=== PATIENT | male | born 2000 | race Caucasian/White ===

== ENCOUNTER 2018-12-08 06:45 | Emergency (ER) | payer OTHER, SELFPAY ==
[2018-12-08 06:51] VITALS: BP 154/81; PULSE 80; RESP 16; TEMP 37.4; O2SAT 98
--- NOTE | 2018-12-08 06:53 | W.ED.GENAD ---
Discharge Plan Disposition Patient Disposition: HOME Condition: Stable Discharge Details Chief Complaint: Urinary Clinical Impression: Epididymitis, left Primary Care Provider: Estuardo Graham ED Provider: Ned Younger Home Meds and New Rx's Prescriptions: New levofloxacin 500 mg tablet 500 mg PO DAILY Qty: 10 RF: 0 ketorolac 10 mg tablet 10 mg PO Q6H PRN (Reason: pain) 5 Days Qty: 30 RF: 0 No Action diphenhydramine-acetaminophen [Tylenol PM Extra Strength] 25-500 mg tablet 1 tab PO Q6H PRNRF: 0 doxycycline monohydrate 100 mg tablet 100 mg PO BID Qty: 20 RF: 0 Discharge Instructions Instructions: Epididymitis (ED) Additional Instructions: follow up with Dr. Castañeda's office, they should reach you for an appointment. If you don't hear from them later today call their office if you have severe worsening of pain or persistent vomit return to the emergency department for reevaluation Medical Decision Making 18 yo male who denies any recent trauma or fevers, is not sexually active and hasn't been for many months per pt, comes in with left testicle pain for about a week that gradually worsened and has had some dysuria. Denies any scrotal swelling. on exam exam he has no swelling of the scrotum, no pain in the right testicle, has pain over the left epidymis and has intact cremasteric reflex. Suspect epididymitis again. Given he denies std's do not feel std coverage indicated but will obtian gc/chlamdyia testing and UA, and likely tx for enteric organsisms with levoflxoacin. He has intact cremastieric reflex, no testicle pain or swelling and pain did not start acutely so doubt torsion of the testicle and do not feel u/s or emergent urology consult indicated Differential Diagnosis torsion testicular appendage, epidiymitis HPI General Mode of arrival: ambulatory. Date/Time Provider Initiated Documentation: 12/08/18 06:46. Limitations to Documentation: no limitations. Information obtained by: patient. History of Present Illness 18 year old M presents to the emergency department with the chief complaint of left testicle pain, described as moderate, Quality is described as aching, and is localized to the genitals and left. Patient reports no radiation. Patient started experiencing this week(s) (1) and it has been constant. other things that improve symptom(s), (elevation) No exacerbating factors reported . Patient notes no other symptoms.. Patient did receive the following treatments prior to arrival, NSAID Related Data Home Medications Medication Instructions Recorded Confirmed diphenhydramine 25 1 tab PO Q6H PRN 08/06/18 08/06/18 mg-acetaminophen 500 mg tablet doxycycline monohydrate 100 mg 100 mg PO BID #20 tab 08/06/18 08/06/18 tablet ketorolac 10 mg PO Q6H PRN 5 Days #30 tab 12/08/18 levofloxacin 500 mg PO DAILY #10 tab 12/08/18 Previous Rx's Medication Instructions Recorded doxycycline monohydrate 100 mg 100 mg PO BID #20 tab 08/06/18 tablet ketorolac 10 mg PO Q6H PRN 5 Days #30 tab 12/08/18 levofloxacin 500 mg PO DAILY #10 tab 12/08/18 Allergies Allergy/AdvReac Type Severity Reaction Status Date / Time No Known Allergies Allergy Unverified 03/18/18 13:30 Review of Systems Review of Systems All systems reviewed & are unremarkable except as noted in HPI and below Constitutional Denies chills, Denies fever(s) and Denies weakness Cardiovascular Denies chest pain and Denies dyspnea Respiratory Denies cough and Denies dyspnea Gastrointestinal Denies abdominal pain, Denies nausea and Denies vomiting Integumentary/Breasts Denies rash Neurologic Denies weakness [facility] Social History Smoking/Tobacco Use Status: Current every day Alcohol Intake: current Drug use: Occasionally Do you feel safe at home: Yes Do you feel safe in your relationship?: Yes Exam Const General: no acute distress Orientation: alert HENMT Head: normal to inspection Ears: external ears normal General nose exam: external nose normal Mouth: moist mucous membranes Eyes General: appearance normal, both eyes and all related structures Neck Neck: normal visual inspection Resp Effort & Inspection: normal respiratory effort and able to speak in complete sentences Cardio Rate: regular rate General: No CVA tenderness Penis: normal penis Meatus: meatus normal Scrotum: scrotum normal and cremasteric reflex present Testes: normal and epididymal tenderness Skin General skin exam: no rashes or lesions noted Neuro General: alert and oriented x3 Extrem General: normal to inspection Psych Mental Status: mental status grossly normal
--- NOTE | 2018-12-08 06:58 | ED.GENADUL_ITS ---
Discharge Plan Disposition Patient Disposition: HOME Condition: Stable Discharge Details Chief Complaint: Urinary Clinical Impression: Epididymitis, left Primary Care Provider: Estuardo Graham ED Provider: Ned Younger Home Meds and New Rx's Prescriptions: New levofloxacin 500 mg tablet 500 mg PO DAILY Qty: 10 RF: 0 ketorolac 10 mg tablet 10 mg PO Q6H PRN (Reason: pain) 5 Days Qty: 30 RF: 0 No Action diphenhydramine-acetaminophen [Tylenol PM Extra Strength] 25-500 mg tablet 1 tab PO Q6H PRNRF: 0 doxycycline monohydrate 100 mg tablet 100 mg PO BID Qty: 20 RF: 0 Discharge Instructions Instructions: Epididymitis (ED) Additional Instructions: follow up with Dr. Castañeda's office, they should reach you for an appointment. If you don't hear from them later today call their office if you have severe worsening of pain or persistent vomit return to the emergency department for reevaluation Medical Decision Making 18 yo male who denies any recent trauma or fevers, is not sexually active and hasn't been for many months per pt, comes in with left testicle pain for about a week that gradually worsened and has had some dysuria. Denies any scrotal swelling. on exam exam he has no swelling of the scrotum, no pain in the right testicle, has pain over the left epidymis and has intact cremasteric reflex. Suspect epididymitis again. Given he denies std's do not feel std coverage indicated but will obtian gc/chlamdyia testing and UA, and likely tx for enteric organsisms with levoflxoacin. He has intact cremastieric reflex, no testicle pain or swelling and pain did not start acutely so doubt torsion of the testicle and do not feel u/s or emergent urology consult indicated Differential Diagnosis torsion testicular appendage, epidiymitis HPI General Mode of arrival: ambulatory . Date/Time Provider Initiated Documentation: 12/08/18 06:46 . Limitations to Documentation: no limitations . Information obtained by: patient . History of Present Illness 18 year old M presents to the emergency department with the chief complaint of left testicle pain, described as moderate, Quality is described as aching, and is localized to the genitals and left. Patient reports no radiation. Patient started experiencing this week(s) (1) and it has been constant. other things that improve symptom(s), (elevation) No exacerbating factors reported . Eli ent notes no other symptoms.. Patient did receive the following treatments prior to arrival, NSAID Related Data Home Medications Medication Instructions Recorded Confirmed diphenhydramine 25 1 tab PO Q6H PRN 08/06/18 08/06/18 mg-acetaminophen 500 mg tablet doxycycline monohydrate 100 mg 100 mg PO BID #20 tab 08/06/18 08/06/18 tablet ketorolac 10 mg PO Q6H PRN 5 Days #30 tab 12/08/18 levofloxacin 500 mg PO DAILY #10 tab 12/08/18 Previous Rx's Medication Instructions Recorded doxycycline monohydrate 100 mg 100 mg PO BID #20 tab 08/06/18 tablet ketorolac 10 mg PO Q6H PRN 5 Days #30 tab 12/08/18 levofloxacin 500 mg PO DAILY #10 tab 12/08/18 Allergies Allergy/AdvReac Type Severity Reaction Status Date / Time No Known Allergies Allergy Unverified 03/18/18 13:30 Review of Systems Review of Systems All systems reviewed & are unremarkable except as noted in HPI and below Constitutional Denies chills, Denies fever(s) and Denies weakness Cardiovascular Denies chest pain and Denies dyspnea Respiratory Denies cough and Denies dyspnea Gastrointestinal Denies abdominal pain, Denies nausea and Denies vomiting Integumentary/Breasts Denies rash Neurologic Denies weakness [facility] Social History Smoking/Tobacco Use Status: Current every day Alcohol Intake: current Drug use: Occasionally Do you feel safe at home: Yes Do you feel safe in your relationship?: Yes Exam Const General: no acute distress Orientation: alert HENMT Head: normal to inspection Ears: external ears normal General nose exam: external nose normal Mouth: moist mucous membranes Eyes General: appearance normal, both eyes and all related structures Neck Neck: normal visual inspection Resp Effort & Inspection: normal respiratory effort and able to speak in complete sentences Cardio Rate: regular rate General: No CVA tenderness Penis: normal penis Meatus: meatus normal Scrotum: scrotum normal and cremasteric reflex present Testes: normal and epididymal tenderness Skin General skin exam: no rashes or lesions noted Neuro General: alert and oriented x3 Extrem General: normal to inspection Psych Mental Status: mental status grossly normal
[2018-12-08 07:06] VITALS: BP 154/81; PULSE 80; RESP 16; TEMP 37.4; O2SAT 98
[2018-12-08 07:07] LABS: Bilirubin Negative (Negative); Blood Negative (Negative); Clarity Clear; Glucose Negative (Negative); Ketones Negative (Negative); Leukocyte Esterase Negative (Negative); Nitrite Negative (Negative); Specific Gravity 1.025 (1.005-1.025); Urobilinogen 0.2 EU/dL (Up TO 0.2); pH 6.5 (5-8)
--- NOTE | 2018-12-08 09:07 | CMPROGNOTE_ITS ---
Care Management Progress Note 12/08-Dr. Younger requested assistance with an urology f/u this week for epididimitis. Referral faxed to Dr. Castañeda's, [facility] Urology, this am.
--- NOTE | 2018-12-08 09:07 | PDOC.ERCMPRO ---
Care Management Progress Note 12/08-Dr. Younger requested assistance with an urology f/u this week for epididimitis. Referral faxed to Dr. Castañeda's, [facility] Urology, this am.
[2018-12-09 12:45] LABS: Chlamydia Result Negative; GC Result Negative; Specimen Description URINE
== END 2018-12-08 07:10 | disposition home or self-care (01) ==
PROVIDERS: Emergency Provider Emergency Medicine; PCP Family Medicine
DX: N45.1 Epididymitis (principal)
CPT/HCPCS: 87491; 87591; 99283; 81003; 87086

== ENCOUNTER 2019-03-09 00:23 | Outpatient (CLI) | payer OTHER, SELFPAY ==
--- NOTE | 2019-03-09 09:00 | DI.MRI_ITS ---
SYMPTOM/DIAGNOSIS: LT GROIN PAIN, R10.32 LUMBAR SPINE MRI: T 1, T 2 and STIR sagittal, T 1 and T 2 axial and T 1 coronal sequences were performed. There is a mild levoscoliosis versus patient positioning. The marrow signal is normal. The conus medullaris appears intact. There is slight bulging at L 3-4 and L 4-5. No disc herniation is seen at any level. The neural foramen and central canal are well maintained. There are mild facet degenerative changes at L 5-S 1. IMPRESSION: Minimal degenerative changes and minimal scoliosis.
== END 2019-03-09 00:43 ==
PROVIDERS: PCP Family Medicine; Visit Provider Nurse Practitioner Family
DX: R10.32 Left lower quadrant pain (principal); M47.817 Spondylosis without myelopathy or radiculopathy, lumbosacral region; M41.87 Other forms of scoliosis, lumbosacral region
CPT/HCPCS: 72148

== ENCOUNTER 2019-04-23 01:06 | Outpatient (CLI) | payer OTHER, SELFPAY ==
--- NOTE | 2019-04-23 14:30 | DI.US_ITS ---
EXAM: US PAIN CLINIC NEEDLE GUIDANCE CLINICAL HISTORY: LT TESTICULAR PAIN, ULTRASOUND-GUIDED GENITOFEMORAL BLOCK. TECHNIQUE: Ultrasound performed using standard protocol. COMPARISON: SCROTUM US from 12/20/2017 FINDINGS: Ultrasound guidance was utilized for genitofemoral block performed by Dr. Guallpa.
[2019-04-23 14:33] VITALS: BP 137/80; PULSE 83; RESP 16; TEMP 36.8; O2SAT 98
[2019-04-23] MEDS: Bupivacaine 0.5% Pres-Free 10 ML VIAL IJ (15:13)
[2019-04-23] MEDS: methylPREDNISolone ACETATE 40 MG/ML VIAL IJ (15:17)
--- NOTE | 2019-04-23 15:19 | PDOC.PAIN_ITS ---
Pain Clinic Procedure Note Procedure Note Procedure Note: ULTRASOUND GUIDED LEFT GENITOFEMORAL NERVE BLOCK Pre-Procedural Evaluation: LEROY ARIZMENDI has been referred to the [facility] for an Ultrasound Guided left Genitofemeral nerve block injection for a chief compl aint of . Pre-procedure Pain Score: 7/10 Patient was interviewed and the medical record reviewed. There were no medical, pharmacologic, radiographic, or other structural contraindications to preforming an ultrasound guided injection. Risks and expected side effects as well as potential benefits of the procedure were reviewed. The patient consent form was signed and witnessed. Standard time-out procedure was performed. The use of direct ultrasound visualization of the needle (rather than a non- guided injection) was required to increase patient safety by excluding inadvertent intramuscular, intratendinous, or intraneural needle placement and minimizing bleeding by avoiding osteochondral or vascular injury from the needle. Additionally, the increased accuracy of placement may increase clinical effectiveness and will allow higher diagnostic specificity when evaluating effectiveness of this injection. Procedure Description: The patient was placed in the supine position and automated blood pressure cuff and pulse oximeter applied for monitoring during the procedure and recorded in the medical record. Pre-injection ultrasound scanning of the area of interest was performed using linear transducer, identifying relevant anatomy, landmarks, and neurovascular structures allowing for optimal needle path. The site was then prepared in the usual sterile fashion, using thorough Chlorhexadine preparation of the skin and sterile draping. The same ultrasound transducer was then passed into the sterile field using sterile probe cover and sterile ultrasound gel. The injection target was again visualized. 3Skin and subcutaneous tissues were anesthetized with mL of 1% Lidocaine. A /25 guage needle 1.5 inch needle was placed under live ultrasound guidance, using an in-plane approach, to the target area. After visualization of the needle tip at the target area, a mixture of 5 mL 0.5% Bupivacaine} and 1 mL 40 mg/cc Depomedrol, totaling 6 mL of injectate was delivered after negative aspiration for blood. Ultrasound images were captured and stored for documentation purposes. Post-procedure Pain Score: 2/10 Vital signs were stable throughout the procedure and were as recorded in the docflowsheet by the nursing staff. Follow up plans and appointments were discussed with the patient.Post procedure instruction was given as documented in nursing documentation and having met discharge criteria, they were discharged from the [facility]. COMMENTS: He will follow up with Ms. Vasquez
== END 2019-04-23 01:26 ==
PROVIDERS: PCP Family Medicine; Visit Provider Preventive Medicine Occupational Medicine
DX: N50.812 Left testicular pain (principal)
CPT/HCPCS: 64450; 76942; J1030

== ENCOUNTER 2019-07-10 11:37 | Outpatient (REF) | payer OTHER, SELFPAY ==
[2019-07-10 18:24] LABS: Calculated LDL 98 mg/dL; Cholesterol 163 mg/dL (<200); HDL Cholesterol 46 mg/dL (40-60); Triglyceride 99 mg/dL (<150)
[2019-07-10 18:59] LABS: Abs Immature Grans 0.03 k/cumm (0.0-0.09); Absolute Basophil Count 0.04 k/cumm (0.0-0.2); Absolute Eosinophil Count 0.34 k/cumm (0.0-0.7); Absolute Lymphocyte Count 2.11 k/cumm (1.2-3.4); Absolute Monocyte Count 0.88 k/cumm (0.11-0.7); Basophils % 0.5; HCT 46.3 % (40.0-50.0); HGB 15.7 g/dL (13.5-17.5); Immature Grans % 0.4; Lymphocytes % 24.8; Mean Corp. HGB Concentration 33.9 g/dL (32.0-36.0); Mean Corpuscular Hemoglobin 30.8 pg (27.0-33.0); Mean Corpuscular Volume 90.8 fL (80-95); Mean Platelet Volume 9.7 fL (8.0-11.0); Monocytes % 10.4; Neutrophils % 59.9; Platelet Count 424 x1000/uL (130-400); RBC Distribution Width 12.3 % (11.8-14.1)
[2019-07-10 19:41] LABS: Hemoglobin A1C 4.9 % (4.5-6.2)
== END 2019-07-10 11:57 ==
LOC: NCHCN 11:37
PROVIDERS: PCP Family Medicine; Visit Provider Family Medicine
DX: F39 Unspecified mood [affective] disorder (principal); Z79.899 Other long term (current) drug therapy
CPT/HCPCS: 80061; 83036; 85025

== ENCOUNTER 2019-08-10 19:35 | Outpatient (REF) | payer OTHER, SELFPAY ==
[2019-08-10 18:49] LABS: AST 28 U/L (15-37); Albumin 3.9 g/dL (3.4-5.0); Alkaline Phosphatase 75 U/L (46-116); Bilirubin, Total 0.2 mg/dL (0.2-1.0); Total Protein 6.8 g/dL (6.4-8.2)
[2019-08-10 19:00] LABS: ALT 22 U/L (16-63)
[2019-08-11 15:02] LABS: Bilirubin, Direct 0.05 mg/dL (0.00-0.20)
== END 2019-08-10 19:55 ==
LOC: NCHCN 19:35
PROVIDERS: PCP Family Medicine; Visit Provider Nurse Practitioner Psychiatric/Mental Health
DX: Z51.81 Encounter for therapeutic drug level monitoring (principal)
CPT/HCPCS: 80076

== ENCOUNTER 2019-09-11 07:21 | Outpatient (CLI) | payer OTHER, SELFPAY ==
[2019-09-11 08:01] LABS: Abs Immature Grans 0.05 k/cumm (0.0-0.09); Absolute Basophil Count 0.04 k/cumm (0.0-0.2); Absolute Eosinophil Count 0.39 k/cumm (0.0-0.7); Absolute Lymphocyte Count 3.21 k/cumm (1.2-3.4); Basophils % 0.3; Eosinophils % 2.7; HCT 41.6 % (40.0-50.0); HGB 14.3 g/dL (13.5-17.5); Immature Grans % 0.3 %; Lymphocytes % 22.3; Mean Corp. HGB Concentration 34.4 g/dL (32.0-36.0); Mean Corpuscular Hemoglobin 30.8 pg (27.0-33.0); Mean Corpuscular Volume 89.5 fL (80-95); Mean Platelet Volume 9.2 fL (8.0-11.0); Monocytes % 8.5; Neutrophils % 65.9; Platelet Count 350 x1000/uL (130-400); RBC 4.65 m/cumm (4.50-6.00); RBC Distribution Width 12.6 % (11.8-14.1); White Blood Cell Count 14.41 k/cumm (4.4-10.8)
[2019-09-11 08:08] LABS: Absolute Monocyte Count 1.22 k/cumm (0.11-0.7)
[2019-09-11 08:10] LABS: VALPROIC ACID 35.4 ug/mL (50-100)
== END 2019-09-11 07:41 ==
PROVIDERS: PCP Family Medicine; Visit Provider Nurse Practitioner Psychiatric/Mental Health
DX: Z51.81 Encounter for therapeutic drug level monitoring (principal); Z79.899 Other long term (current) drug therapy
CPT/HCPCS: 36415; 80164; 85025

== ENCOUNTER 2019-10-07 11:14 | Outpatient (REF) | payer OTHER, SELFPAY ==
[2019-10-07 21:26] LABS: Abs Immature Grans 0.05 k/cumm (0.0-0.09); Absolute Eosinophil Count 0.53 k/cumm (0.0-0.7); Absolute Monocyte Count 1.11 k/cumm (0.11-0.7); Absolute Neutrophil Count 8.08 k/cumm (1.2-6.7); Basophils % 0.2; Eosinophils % 4.4; HCT 40.9 % (40.0-50.0); HGB 13.9 g/dL (13.5-17.5); Immature Grans % 0.4 %; Mean Corpuscular Hemoglobin 31.3 pg (27.0-33.0); Mean Corpuscular Volume 92.1 fL (80-95); Mean Platelet Volume 10.4 fL (8.0-11.0); Monocytes % 9.2; Neutrophils % 66.8; Platelet Count 296 x1000/uL (130-400); RBC 4.44 m/cumm (4.50-6.00); RBC Distribution Width 12.9 % (11.8-14.1)
[2019-10-07 21:27] LABS: Absolute Basophil Count 0.02 k/cumm (0.0-0.2)
[2019-10-07 21:42] LABS: TSH (W/Ref FT4) 0.86 uIU/mL (0.36-3.74)
[2019-10-08 05:31] LABS: Vitamin D 25 Total 25.4 ng/ml (30-100)
== END 2019-10-07 11:34 ==
LOC: NCHCN 11:14
PROVIDERS: PCP Family Medicine; Visit Provider Nurse Practitioner Psychiatric/Mental Health
DX: Z51.81 Encounter for therapeutic drug level monitoring (principal)
CPT/HCPCS: 82306; 80164; 84443; 85025

== ENCOUNTER 2019-11-13 09:37 | Outpatient (REF) | payer OTHER, SELFPAY ==
[2019-11-13 17:50] LABS: VALPROIC ACID 40.3 ug/mL (50-100)
[2019-11-13 17:58] LABS: ALT 36 U/L (16-63); AST 26 U/L (15-37); Albumin 4.2 g/dL (3.4-5.0); Alkaline Phosphatase 66 U/L (46-116); Anion Gap 8.3 mmol/L (3-11); BUN 10 mg/dL (7-18); Bilirubin, Total 0.1 mg/dL (0.2-1.0); CO2 27.7 mmol/L (21.0-32.0); CREATININE 0.81 mg/dL (0.70-1.30); Calcium 9.2 mg/dL (8.5-10.1); Chloride 106 mmol/L (98-107); Glucose 102 mg/dL (74-106); Potassium 4.3 mmol/L (3.5-5.1); Sodium 142 mmol/L (136-145); TSH (W/Ref FT4) 0.87 uIU/mL (0.36-3.74); Total Protein 7.1 g/dL (6.4-8.2)
== END 2019-11-13 09:57 ==
LOC: NCHCN 09:37
PROVIDERS: PCP Family Medicine; Visit Provider Nurse Practitioner Psychiatric/Mental Health
DX: Z51.81 Encounter for therapeutic drug level monitoring (principal); F39 Unspecified mood [affective] disorder
CPT/HCPCS: 80053; 80164; 84443

== ENCOUNTER 2019-12-04 15:41 | Outpatient (REF) | payer OTHER, SELFPAY ==
[2019-12-04 16:47] LABS: Lithium 0.56 mmol/L (0.60-1.20)
== END 2019-12-04 16:01 ==
LOC: NCHCN 15:41
PROVIDERS: PCP Family Medicine; Visit Provider Nurse Practitioner Psychiatric/Mental Health
DX: F39 Unspecified mood [affective] disorder (principal); Z51.81 Encounter for therapeutic drug level monitoring
CPT/HCPCS: 80178

== ENCOUNTER 2020-01-25 16:07 | Outpatient (REF) | payer OTHER, SELFPAY ==
[2020-01-25 17:34] LABS: *AMPHETAMINES SCREEN URINE Negative (Negative); *BARBITURATES SCREEN URINE Negative (Negative); *BENZODIAZEPINES SCREEN URINE Negative (Negative); Cannabinoids THC Negative (Negative); Cocaine Screen,Urine Negative (Negative); METHADONE URINE SCREEN Negative (Negative); OPIATES URINE SCREEN Negative (Negative); Tricyclic Antidepressants Negative (Negative)
== END 2020-01-25 16:27 ==
LOC: NCHCN 16:07
PROVIDERS: PCP Family Medicine; Visit Provider Nurse Practitioner Psychiatric/Mental Health
DX: F19.10 Other psychoactive substance abuse, uncomplicated (principal)
CPT/HCPCS: 80307

== ENCOUNTER 2020-03-31 02:28 | Outpatient (CLI) | payer OTHER, SELFPAY ==
--- NOTE | 2020-03-31 | DI.US_ITS ---
EXAM: US PAIN CLINIC NEEDLE GUIDANCE CLINICAL HISTORY: GENITOFEMORAL NEURALGIA,ULTRASOUND GUIDED NERVE BLOCK TECHNIQUE: Ultrasound performed using standard protocol. COMPARISON: US US PAIN CLINIC NEEDLE GUIDANCE from 04/23/2019 FINDINGS: Ultrasound guidance was provided for reported left geniculofemoral nerve block performed by Dr. Guallpa. Please see Dr. Guallpa's procedure note. IMPRESSION: DATA REPOSITORY:
[2020-03-31 13:03] VITALS: BP 128/72; PULSE 98; RESP 16; TEMP 36.8; O2SAT 99
--- NOTE | 2020-03-31 13:39 | PDOC.PAIN_ITS ---
Pain Clinic Procedure Note Procedure Note Procedure Note: ULTRASOUND GUIDED LEFT Genitofemoral nerve block Pre-Procedural Evaluation: LEROY ARIZMENDI has been referred to the [facility] for an Ultrasound Guided [right/left/bilateral] [] injection for a chief complaint of []. Pre-procedure Pain Score: 4/10 DX: Left genitofemoral neuralgia Comment: He received 4-5 month of relief with his last left genitofemoral nerve block on 04/23/2019. Patient was interviewed and the medical record reviewed. There were no medical, pharmacologic, radiographic, or other structural contraindications to preforming an ultrasound guided injection. Risks and expected side effects as well as potential benefits of the procedure were reviewed. The patient consent form was signed and witnessed. Standard time-out procedure was performed. The use of direct ultrasound visualization of the needle (rather than a non- guided injection) was required to increase patient safety by excluding inadvertent intramuscular, intratendinous, or intraneural needle placement and minimizing bleeding by avoiding osteochondral or vascular injury from the needle. Additionally, the increased accuracy of placement may increase clinical effectiveness and will allow higher diagnostic specificity when evaluating effectiveness of this injection. Procedure Description: The patient was placed in the supine position and automated blood pressure cuff and pulse oximeter applied for monitoring during the procedure and recorded in the medical record. Pre-injection ultrasound scanning of the area of interest was performed using a linear transducer, identifying relevant anatomy, landmarks, and neurovascular structures allowing for optimal needle path. The site was then prepared in the usual sterile fashion, using thorough Chlorhexadine preparation of the skin and sterile draping. The same ultrasound transducer was then passed into the sterile field using sterile probe cover and sterile ultrasound gel. The injection target was again visualized. Skin and subcutaneous tissues were anesthetized with 2 mL of 1% Lidocaine. A 20 guage P[place]unk needle was placed under live ultrasound guidance, using an in-plane approach, to the target area. After visualization of the needle tip at the target area, a mixture of 5 mL 0.5% bupivacaine and 1 mL Depomedrol (40 mg/cc), totaling 6 mL of injectate was delivered after negative aspiration for blood. Ultrasound images were captured and stored for documentation purposes. Post-procedure Pain Score:0/10 Vital signs were stable throughout the procedure and were as recorded in the docflowsheet by the nursing staff. Follow up plans and appointments were discussed with the patient.Post procedure instruction was given as documented in nursing documentation and having met discharge criteria, they were discharged from the [facility]. COMMENTS: This procedure can be completed up to 3 times per 12 months if it is found to be helpful
[2020-03-31 13:40] VITALS: PULSE 93; O2SAT 100
[2020-03-31] MEDS: methylPREDNISolone ACETATE 40 MG/ML VIAL IJ (13:40)
[2020-03-31] MEDS: Bupivacaine 0.5% Pres-Free 10 ML VIAL IJ (13:40)
== END 2020-03-31 02:48 ==
PROVIDERS: PCP Family Medicine; Visit Provider Preventive Medicine Occupational Medicine
DX: G57.82 Other specified mononeuropathies of left lower limb (principal)
CPT/HCPCS: 64425; 76942; J1030

== ENCOUNTER 2020-04-28 01:54 | Emergency (ER) | payer OTHER, SELFPAY ==
[2020-04-28 01:58] VITALS: BP 163/97; PULSE 120; RESP 16; TEMP 36.7; O2SAT 99
--- NOTE | 2020-04-28 02:00 | ED.GENADUL_ITS ---
Discharge Plan Disposition Patient Disposition: HOME Condition: Improving Discharge Details Clinical Impression: Anxiety, Tinnitus Primary Care Provider: Estuardo Graham ED Provider: Ignacio Rodriguez Home Meds and New Rx's Prescriptions: No Action No Known Home Meds RF: 0 Discharge Instructions Additional Instructions: Mental health will contact you in the morning at 7 AM. Follow safety plan that you have arranged with her. If issues call her before then. You will need to follow-up with primary care for further evaluation of the ringing in your ears. Mental health is going to try to help facilitate that. It would probably be beneficial to stay with your mother as discussed with mental health. Return to ED at any time that you feel unsafe or [id number]. Referrals: [facility] [Provider Group] Estuardo Graham [Primary Care Provider] - Medical Decision Making Patient presenting with anxiety/panic attack. Acutely feeling overwhelmed without trigger. Had some alcohol and marijuana Saturday which is 3 days ago now. Denies regular use. Did take himself off psychiatric medications and has not seen his behavioral health specialist in over 3 months. At this point we will treat him acutely with p.o. Ativan and reevaluate. 02:50 -Ativan has seemed to help to some degree. He is definitely more calm. Still feels anxious and overwhelmed. Again does not feel that he is truly suicidal but cannot tell me that he feels completely safe. I do not think he is really a threat but will have mental health evaluate, if nothing else to assure close follow-up and develop safety plan. 04:30 - Patient had a lengthy conversation with mental health. Discussed outpatient and inpatient management. Patient does not think he is ready for inpatient. He is not suicidal and has no intent or plan. He just periodically has the thoughts of suicide. He also has continued tenderness for the last couple months which he thinks is feeding into his anxiety. You will need to follow-up with primary care for further evaluation of this. He has no headache and is neurologically intact. His ears have minimal cerumen and he has some scarring to the TMs but otherwise normal. Plan will be for mental health to reach out to him at 7 AM to see how he is doing. He will contact them in the meantime if any issues. He is considering going to spend a few days with his mother to help with the anxiety. We will give a couple of Ativan from here for him to use if he develops worsening anxiety or panic attack. He understands that if he becomes overwhelmed or feels unsafe to return to the emergency department. Medical Records Medical records reviewed: Yes I reviewed the patient's medical records. HPI General Mode of arrival: ambulatory . Date/Time Provider Initiated Documentation: 04/28/20 01:56 . Limitations to Documentation: no limitations . Information obtained by: patient, RN notes reviewed and old records reviewed . HPI Narrative: Patient brought here by his boss for anxiety/panic attack. Patient has had attacks similar to this in the past but has always been able to control them. Tonight he is unable to control. He is unable to stop crying. There is nothing that triggered this event. He has been off medications and has not seen his behavioral health counselor for over 3 months. He does not regularly drink or use drugs but did so on Saturday. He is complaining of palpitations and heart racing. He has had fleeting suicidal thoughts but has no intention of acting on them. He just feels overwhelmed and [id number] at this point. Is not even sure why he is here other than the fact that both him and his boss did not know what else to do. Related Data Home Medications Medication Instructions Recorded Confirmed Unknown [No Known Home Meds] 04/28/20 04/28/20 Allergies Allergy/AdvReac Type Severity Reaction Status Date / Time Environmental (Mild) Allergy Mild Uncoded 04/28/20 02:01 General HUONG: 3 Review of Systems Narrative: As documented in HPI otherwise negative as below. Const: no fever, chills, weakness Resp: no cough, SOB, pleuritic pain CV: no CP, diaphoresis, edema, syncope GI: no abdominal pain, nausea, vomiting, diarrhea Neuro: no headache, numbness, focal weakness, confusion PFSH Medical History Allergic rhinitis Asthma, mild intermittent Genitofemoral neuralgia Mood disorder Surgical History H/O adenoidectomy Social History Smoking/Tobacco Use Status: Current every day Alcohol Intake: current Alcohol Intake frequency: a few times a week Substance use type: marijuana and prescription drug Do you feel safe at home: Yes Do you feel safe in your relationship?: Yes Additional Social history: Lives alone with 2 dogs. Exam Narrative Exam Narrative: Vitals: Afebrile. Tachycardic and hypertensive but crying. Normal O2 saturation. Const: WDWN male anxious and crying.. HEENT: NC/AT. Normal facial exam. Eyes: Normal conjunctiva and sclera. Neck: Supple. Trachea midline. Lungs: Normal respiratory effort. Lungs are clear. Cor: RRR without murmur/gallop. Tachy. Good radial pulses. GI: Soft. NT/ND. No guarding or rebound. Neuro: A+O x 3. Normal speech, mentation, gait. Cranial nerves II - XII grossly intact. No gross motor or sensory deficit. Ext: No C/C/E. Psych: Anxious, crying. Feels out of control. Fleeting suicidal thoughts without intent. No hallucinations.
[2020-04-28] MEDS: LORazepam 1 MG TAB PO (02:19)
--- NOTE | 2020-04-28 04:08 | PDOC.MHCN ---
Date of service: 04/28/20 Time of Service: 04:08 Mental Health Crisis Note Presenting Issue How did you arrive at the ED and why did you come: Client arrived at the ED after suffering from severe anxiety and a panic attack. Precipitating Factors Client reports thoughts of suicide, but reports that he does'nt want to do it and has no plan. Client reports that he doesn't have anything to make him unsafe. Client reports no HI. Client reports a ringing in his ears that gets worse the more he relaxes. Disposition BEHAVIOR: Clients behavior is unremarkable. Client is receptive when speaking with this remote mortgage underwriter. EYE CONTACT: Client makes good eye contact throughout the assessment. MOOD: Client is depressed and tearful AFFECT: Clients affect is flat APPETITE: Client reports issues with his appetite over the past few days. SLEEP(trouble falling/staying asleep: Client reports trouble falling asleep Plan This remote mortgage underwriter consulted with Dr. Rodriguez. It was agreed that client was safe to go home as client reports no suicide plan and does not want inpatient hospitalization. This remote mortgage underwriter and client came up with a plan for safety. This remote mortgage underwriter will contact client at 7am to check in. Client has the ES number and will call if he begins to feel a panic attack coming on. [facility] will follow up and support client in reaching out to his PCP to discuss meds. Signature Clinician's Name/Title: Rosemary Orta [facility] Emergency Clinician
[2020-04-28] MEDS: LORazepam 1 MG TAB 2 MG PO (04:32)
[2020-04-28 04:34] VITALS: BP 130/86; PULSE 90; RESP 16; O2SAT 98
== END 2020-04-28 04:33 | disposition home or self-care (01) ==
PROVIDERS: Emergency Provider Emergency Medicine; PCP Family Medicine
DX: F41.8 Other specified anxiety disorders (principal); R00.2 Palpitations; H93.13 Tinnitus, bilateral; T43.596A Underdosing of other antipsychotics and neuroleptics, initial encounter; Z91.19 Patient's noncompliance with other medical treatment and regimen; Z91.128 Patient's intentional underdosing of medication regimen for other reason
CPT/HCPCS: 99283

== ENCOUNTER 2020-05-03 12:45 | Outpatient (REF) | payer OTHER, SELFPAY ==
[2020-05-03 19:00] LABS: HCT 47.3 % (40.0-50.0); MCH 30.6 pg (27.0-33.0); MCHC 33.8 % (32.0-36.0); MCV 90.4 fL (80-95); MPV 9.6 fL (8.0-11.0); Platelet Count 363 10^3/uL (130-400); RBC 5.23 10^6/uL (4.36-5.78); RDW-SD 39.8 fL
[2020-05-03 19:20] LABS: Anion Gap 8.7 mmol/L (3-11); BUN 11 mg/dL (7-18); CO2 27.3 mmol/L (21.0-32.0); CREATININE 0.75 mg/dL (0.70-1.30); Calcium 9.9 mg/dL (8.5-10.1); Chloride 103 mmol/L (98-107); Glucose 86 mg/dL (74-106); Potassium 4.8 mmol/L (3.5-5.1); Sodium 139 mmol/L (136-145); TSH (W/Ref FT4) 0.33 uIU/mL (0.36-3.74)
[2020-05-03 19:44] LABS: FREE T4 1.15 ng/dL (0.76-1.46)
[2020-05-09 12:53] LABS: IgA 129 mg/dL (85-499); Interpretation (See Note); Tissue Transglutaminase IgA <1.2 U/mL (<4.0)
== END 2020-05-03 13:05 ==
LOC: NCHCN 12:45
PROVIDERS: PCP Family Medicine; Visit Provider Family Medicine
DX: Z83.79 Family history of other diseases of the digestive system (principal); Z79.899 Other long term (current) drug therapy; Z51.81 Encounter for therapeutic drug level monitoring
CPT/HCPCS: 80048; 82784; 83516; 85027; 84439; 84443

== ENCOUNTER 2020-07-11 18:37 | Outpatient (REF) | payer OTHER, SELFPAY ==
[2020-07-11 19:24] LABS: Magnesium 2.1 mg/dL (1.8-2.4); TSH (W/Ref FT4) 2.68 uIU/mL (0.36-3.74)
== END 2020-07-11 18:57 ==
LOC: NCHCN 18:37
PROVIDERS: PCP Family Medicine; Visit Provider Family Medicine
DX: R00.2 Palpitations (principal); R94.6 Abnormal results of thyroid function studies
CPT/HCPCS: 83735; 84443

== ENCOUNTER 2022-02-19 18:49 | Outpatient (REF) | payer SELFPAY | END 2022-02-19 18:50 | disposition home or self-care (01) | LOC: LBN 18:49 | PROVIDERS: PCP Family Medicine; Visit Provider Physician Assistant | DX: J02.9 Acute pharyngitis, unspecified (principal) | CPT/HCPCS: 87070 ==

== ENCOUNTER 2022-03-27 08:12 | Emergency (ER) | payer SELFPAY ==
--- NOTE | 2022-03-27 08:15 | RT.EKG_ITS ---
APPROVED REPORT Exam: Resting ECG Reason for Exam: chest tightness Patient Location: E HR:95 bpm ECG Measurements Heart Rate 95 AXIS GA 126 P 55 QRSd 86 QRS 48 QT 345 T 11 QTc 433 Conclusion Sinus rhythm...normal P axis, V-rate 60- 99
[2022-03-27 08:18] VITALS: BP 150/105; PULSE 111; RESP 18; TEMP 36.8; O2SAT 98
--- NOTE | 2022-03-27 08:33 | W.ED.GENAD ---
Discharge Plan Disposition Patient Disposition: HOME Condition: Stable Discharge Details Clinical Impression: Anxiety Primary Care Provider: Estuardo Graham ED Provider: Madhuri Leal Home Meds and New Rx's Prescriptions: No Action citalopram 20 mg tablet 20 mg PO DAILY gabapentin 300 mg capsule 1,400 mg PO DAILY clonidine HCl 0.1 mg tablet 0.1 mg PO QHS quetiapine 100 mg tablet 150 tab PO DAILY Label Comments: TAKE 1 TABLET BY MOUTH AT BEDTIME WITH A 50MG TABLET FOR A TOTAL OF 150MG AT BEDTIME Discharge Instructions Instructions: Anxiety (ED) Additional Instructions: Labs show elevated liver enzymes, this is most likely due to the alcohol use. Follow up with primary care provider in 3-5 days. Return to ED sooner if any worsening or concerns. Increase oral fluids. Referrals: Estuardo Graham [Primary Care Provider] - 3 days Medical Decision Making 21-year-old male presents to the ER with chief complaint of midsternal chest pain, tremors and feeling like he is tripping. He reports drinking moderate amount of alcohol this weekend along with Ambien and drinking last night. He also reports that he touched a mushroom yesterday and since has felt altered. He also endorses blurry vision. He has a past medical history of asthma, mood disorder. He denies any nausea vomiting diarrhea or any other associated symptoms. CBC shows no leukocytosis, CMP shows elevated liver enzymes AST is 55 ALT 72 alk phos 144 initial troponin within normal limits, urinalysis shows trace blood no leukocytes no nitrites. UDS is negative. Ethyl alcohol less than 3.0. Patient is being given Benadryl 25 mg IV and 0.5 of lorazepam. Plan is to discharge patient home. Lab Data Lab results reviewed: Yes I reviewed the patient's lab results. Labs: Laboratory Tests Range/Units 03/27/22 03/27/22 03/27/22 08:50 08:50 08:50 WBC (4.4-10.8) 10^3/uL 8.40 RBC (4.36-5.78) 10^6/uL 5.07 Hgb (13.5-17.5) g/dL 16.1 Hct (40.0-50.0) % 45.7 MCV (80-95) fL 90 MCH (27.0-33.0) pg 31.8 MCHC (32.0-36.0) % 35.2 RDW (11.8-14.1) % 11.3 L Plt Count (130-400) 10^3/uL 344 MPV (8.0-11.0) fL 8.8 Immature Gran % 0.6 Neutrophils % 61.6 Lymphocytes % 23.0 Monocytes % 8.8 Eosinophils % 5.2 Basophils % 0.8 Nucleated RBC % (0.0-0.3) % 0.0 Absolute Neutrophils (1.2-6.7) 10^3/uL 5.17 Absolute Lymphocytes (1.2-3.4) 10^3/uL 1.93 Absolute Monocytes (0.1-0.8) 10^3/uL 0.74 Absolute Eosinophils (0.0-0.7) 10^3/uL 0.44 Absolute Basophils (0.0-0.2) 10^3/uL 0.07 Sodium Cancelled 137 Potassium Cancelled 3.7 Chloride Cancelled 99 Carbon Dioxide Cancelled 28.8 Anion Gap Cancelled 9.2 BUN Cancelled 15 Creatinine Cancelled 0.9 Estimated GFR/1.73 m2 Cancelled >= 60.00 Glucose Cancelled 115 H Calcium Cancelled 9.3 Total Bilirubin Cancelled 0.4 AST Cancelled 55 H ALT Cancelled 72 H Alkaline Phosphatase Cancelled 144 H Troponin I (<or=60) ng/L < 50 Total Protein Cancelled 8.4 H Albumin Cancelled 4.4 Urine Color (Yellow) Urine Clarity (Clear) Urine pH (5-8) Ur Specific [place] (1.005-1.025) Urine Protein (Negative) mg/dL Urine Ketones (Negative) mg/dL Urine Blood (Negative) Urine Nitrite (Negative) Urine Bilirubin (Negative) Urine Urobilinogen (Up TO 0.2) EU/dL Ur Leukocyte Esterase (Negative) Urine RBC (0-2) HPF Urine WBC (0-5) HPF Ur Epithelial Cells (Negative) HPF Urine Crystals (Negative) HPF Urine Bacteria (Negative) HPF Urine Casts (Negative) LPF Urine Mucus (Negative) Ur Culture Indicated? Urine Glucose (Negative) mg/dL Urine Opiates Screen (Negative) Urine Methadone Screen (Negative) Ur Barbiturates Screen (Negative) Ur Tricyclics Screen (Negative) Ur Amphetamines Screen (Negative) U Benzodiazepines Scrn (Negative) Urine Cocaine Screen (Negative) Ur THC Screen (Negative) Ethyl Alcohol Cancelled < 3.0 Range/Units 03/27/22 03/27/22 03/27/22 09:08 09:08 11:34 WBC (4.4-10.8) 10^3/uL RBC (4.36-5.78) 10^6/uL Hgb (13.5-17.5) g/dL Hct (40.0-50.0) % MCV (80-95) fL MCH (27.0-33.0) pg MCHC (32.0-36.0) % RDW (11.8-14.1) % Plt Count (130-400) 10^3/uL MPV (8.0-11.0) fL Immature Gran % Neutrophils % Lymphocytes % Monocytes % Eosinophils % Basophils % Nucleated RBC % (0.0-0.3) % Absolute Neutrophils (1.2-6.7) 10^3/uL Absolute Lymphocytes (1.2-3.4) 10^3/uL Absolute Monocytes (0.1-0.8) 10^3/uL Absolute Eosinophils (0.0-0.7) 10^3/uL Absolute Basophils (0.0-0.2) 10^3/uL Sodium Potassium Chloride Carbon Dioxide Anion Gap BUN Creatinine Estimated GFR/1.73 m2 Glucose Calcium Total Bilirubin AST ALT Alkaline Phosphatase Troponin I (<or=60) ng/L Cancelled Total Protein Albumin Urine Color (Yellow) Yellow Urine Clarity (Clear) Clear Urine pH (5-8) 6.0 Ur Specific [place] (1.005-1.025) 1.010 Urine Protein (Negative) mg/dL Negative Urine Ketones (Negative) mg/dL Negative Urine Blood (Negative) Trace-intact H Urine Nitrite (Negative) Negative Urine Bilirubin (Negative) Negative Urine Urobilinogen (Up TO 0.2) EU/dL 0.2 Ur Leukocyte Esterase (Negative) Negative Urine RBC (0-2) HPF 0-2 Urine WBC (0-5) HPF Negative Ur Epithelial Cells (Negative) HPF Rare Urine Crystals (Negative) HPF Negative Urine Bacteria (Negative) HPF Negative Urine Casts (Negative) LPF Negative Urine Mucus (Negative) Negative Ur Culture Indicated? No Urine Glucose (Negative) mg/dL Negative Urine Opiates Screen (Negative) Negative Urine Methadone Screen (Negative) Negative Ur Barbiturates Screen (Negative) Negative Ur Tricyclics Screen (Negative) Negative Ur Amphetamines Screen (Negative) Negative U Benzodiazepines Scrn (Negative) Negative Urine Cocaine Screen (Negative) Negative Ur THC Screen (Negative) Negative Ethyl Alcohol HPI General Mode of arrival: ambulatory. Date/Time Provider Initiated Documentation: 03/27/22 08:13. Limitations to Documentation: no limitations. Information obtained by: patient, RN notes reviewed and old records reviewed. HPI Narrative: 21-year-old male presents to the ER with chief complaint of midsternal chest pain, tremors and feeling like he is tripping. He reports drinking moderate amount of alcohol this weekend along with Ambien and drinking last night. He also reports that he touched a mushroom yesterday and since has felt altered. He also endorses blurry vision. He has a past medical history of asthma, mood disorder. He denies any nausea vomiting diarrhea or any other associated symptoms. Related Data Home Medications Medication Instructions Recorded Confirmed citalopram 20 mg tablet 20 mg PO DAILY 02/19/22 03/27/22 clonidine HCl 0.1 mg tablet 0.1 mg PO QHS 02/19/22 03/27/22 gabapentin 300 mg capsule 1,400 mg PO DAILY 02/19/22 03/27/22 quetiapine 100 mg tablet 150 tab PO DAILY 03/27/22 03/27/22 Allergies Allergy/AdvReac Type Severity Reaction Status Date / Time Environmental (Mild) Allergy Mild Uncoded 03/27/22 08:23 General Stated Complaint: Allergic HUONG: 3 Review of Systems All systems reviewed & are unremarkable except as noted in HPI and below Cardiovascular Cardiovascular: Reports chest pain and Denies dyspnea Respiratory Respiratory: Denies cough, Denies hemoptysis and Denies dyspnea Gastrointestinal Gastrointestinal: Denies diarrhea, Denies nausea and Denies vomiting PFSH All Active Problems (Updated 03/27/22 @ 09:39 by Madhuri Leal NP) Anxiety (Chronic) Tinnitus, bilateral (Acute) Genitofemoral neuralgia (Chronic) Medical History Allergic rhinitis Asthma, mild intermittent Mood disorder Surgical History H/O adenoidectomy Social History Smoking/Tobacco Use Status: Current every day Smoking risk assessment performed?: Yes Alcohol Intake: current Alcohol Intake frequency: a few times a week Drug use: Daily Substance use type: marijuana and prescription drug Do you feel safe at home: Yes Do you feel safe in your relationship?: Yes Additional Social history: Lives alone with 2 dogs. Exam Narrative Exam Narrative: Constitutional: Alert and oriented x3. Appears stated age. Normal body habitus. Head: Normocephalic, no trauma. Eyes: Pupils PERRL, Red reflex noted, EOM's intact. Eyelids symmetrical without lesions, discharge, or swelling. ENT: Bilateral TM's WNL, External ear normal to inspection, no mastoid TTP, swelling, or erythema, Nasal turbinates WNL, no nasal discharge. Normal dentition, Posterior pharynx WNL, no exudate. Chest: RRR, Normal S1, S2, distal pulses intact. Resp: Lungs clear to auscultation bilaterally, no wheezes, rales, or rhonchi. Abdomen: Soft, non-distended, Normoactive bowel sounds all 4 quads. Musculoskeletal: Normal gait, 5/5 strength to all four extremities. Skin: No suspicious rashes or lesions. Capillary refill less than 2 sec. Neurologic: Cranial nerves II-XII intact. Alert and oriented x 3. Motor: No deficits noted. Sensory: Intact bilaterally all 4 extremities. Reflexes: DTR's intact bilaterally.. Hematologic/Lymphatic: No ecchymosis, no lymphadenopathy. Course Vital Signs Vital signs: Vital Signs Temperature 36.8 C 03/27/22 08:18 Pulse 111 H 03/27/22 08:18 Respiratory Rate 18 03/27/22 08:18 Blood Pressure 150/105 H 03/27/22 08:18 Pulse Oximetry 98 03/27/22 08:18 Temperature 36.8 C 03/27/22 08:18 Temperature Source Temporal Artery Scan 03/27/22 08:18 Pulse 111 H 03/27/22 08:18 Respiratory Rate 18 03/27/22 08:18 Respiratory Effort Short of Breath 03/27/22 08:26 Respiratory Pattern Normal 03/27/22 08:26 Blood Pressure 150/105 H 03/27/22 08:18 Blood Pressure Position Sitting 03/27/22 08:18 Pulse Oximetry 98 03/27/22 08:18 Oxygen Delivery Method Room Air 03/27/22 08:18 Oxygen Flow Rate 0 03/27/22 08:18 Pain Level 5 03/27/22 08:18 PAWSS Have you Been Recently Intoxicated or Drunk Within the Last 30 days?: Yes Have you Ever Experienced Previous Episodes of Alcohol Withdrawal?: Yes Have you ever Experienced Withdrawal Seizures?: Yes Have you ever Experienced Delirium Tremens(DT)s?: No Have you ever undergone Alcohol Rehabilitation Treatment (i.e, inpt ot outpatient treatment programs)?: No Have you ever Experienced Blackouts?: No Have you ever Combined Alcohol with other Downers within the last 90 days?: No Have you ever Combined Alcohol with any other Substance of Abuse during the last 90 days?: No Positive Blood Alcohol level on Presentation? [PCS.BAL]: No Evidence of Increased Autonomic Activity (i.e. HR>120, tremor, sweating, agitation, nausea)?: No Result: 3
[2022-03-27] MEDS: LORazepam 0.5 MG TAB PO (08:44)
[2022-03-27] MEDS: Normal Saline 1,000 ML 1000 ML IV (08:47)
[2022-03-27] MEDS: diphenhydrAMINE 50 MG/ML VIAL 25 MG IVP (08:48)
[2022-03-27] MEDS: Normal Saline Flush 10 ML SYR IVP (08:57)
[2022-03-27 09:03] LABS: Abs Immature Grans 0.05 10^3/uL (0.0-0.06); Absolute Basophil Count 0.07 10^3/uL (0.0-0.2); Absolute Eosinophil Count 0.44 10^3/uL (0.0-0.7); Absolute Lymphocyte Count 1.93 10^3/uL (1.2-3.4); Absolute Monocyte Count 0.74 10^3/uL (0.1-0.8); Absolute Neutrophil Count 5.17 10^3/uL (1.2-6.7); Basophils % 0.8; Eosinophils % 5.2; HCT 45.7 % (40.0-50.0); HGB 16.1 g/dL (13.5-17.5); Immature Grans % 0.6; MCH 31.8 pg (27.0-33.0); MCHC 35.2 % (32.0-36.0); MCV 90 fL (80-95); MPV 8.8 fL (8.0-11.0); Monocytes % 8.8; Neutrophils % 61.6; Platelet Count 344 10^3/uL (130-400); RBC 5.07 10^6/uL (4.36-5.78); RDW 11.3 % (11.8-14.1); RDW-SD 37.2 fL
[2022-03-27 09:18] LABS: Bilirubin Negative (Negative); Blood Trace-intact (Negative); Clarity Clear (Clear); Glucose Negative (Negative); Ketones Negative (Negative); Leukocyte Esterase Negative (Negative); Nitrite Negative (Negative); Urobilinogen 0.2 EU/dL (Up TO 0.2)
[2022-03-27 09:21] LABS: ALT 72 U/L (16-63); AST 55 U/L (15-37); Albumin 4.4 g/dL (3.4-5.0); Alkaline Phosphatase 144 U/L (46-116); Anion Gap 9.2 mmol/L (3-11); BUN 15 mg/dL (7-18); Bilirubin, Total 0.4 mg/dL (0.2-1.0); CO2 28.8 mmol/L (21.0-32.0); CREATININE 0.9 mg/dL (0.70-1.30); Calcium 9.3 mg/dL (8.5-10.1); Chloride 99 mmol/L (98-107); Glucose 115 mg/dL (74-106); Potassium 3.7 mmol/L (3.5-5.1); Sodium 137 mmol/L (136-145); Total Protein 8.4 g/dL (6.4-8.2); Troponin I < 50 ng/L (<or=60)
[2022-03-27 09:22] LABS: ETHANOL BLOOD < 3.0 mg/dL (<10)
[2022-03-27 09:29] LABS: *AMPHETAMINES SCREEN URINE Negative (Negative); *BARBITURATES SCREEN URINE Negative (Negative); *BENZODIAZEPINES SCREEN URINE Negative (Negative); Cannabinoids THC Negative (Negative); Cocaine Screen,Urine Negative (Negative); METHADONE URINE SCREEN Negative (Negative); OPIATES URINE SCREEN Negative (Negative)
[2022-03-27 09:30] LABS: Tricyclic Antidepressants Negative (Negative)
[2022-03-27 09:32] LABS: Bacteria Negative HPF (Negative); C & S Indicated? No; Casts Negative LPF (Negative); Crystals Negative HPF (Negative); Epithelial Cells Rare HPF (Negative); Mucus Negative (Negative); RBC 0-2 HPF (0-2); WBC Negative HPF (0-5)
[2022-03-27 09:44] VITALS: BP 147/89; PULSE 76; TEMP 36.6; O2SAT 97
== END 2022-03-27 09:58 | disposition home or self-care (01) ==
PROVIDERS: Emergency Provider Registered Nurse Emergency; PCP Family Medicine
DX: F41.9 Anxiety disorder, unspecified (principal); R07.89 Other chest pain; F17.200 Nicotine dependence, unspecified, uncomplicated; R74.8 Abnormal levels of other serum enzymes
CPT/HCPCS: 36415; 80053; 80307; 93005; 96361; 96374; 99284; 80320; 81003; 81015; 84484; 85025; 93010; J1200

== ENCOUNTER 2022-08-07 01:33 | Inpatient (IN) | payer MEDICAID, SELFPAY ==
[2022-08-07] VITALS (11 sets, daily range): BP systolic 100–172; BP diastolic 71–109; PULSE 109–142; RESP 14–20; TEMP 34.7–36.9; O2SAT 91–100
--- NOTE | 2022-08-07 | DI.US_ITS ---
Exam(s) US ABDOMEN EXAM: US ABDOMEN CLINICAL HISTORY: Pancreatitis TECHNIQUE: Ultrasound of complete upper abdomen performed using standard protocol. COMPARISON: CT CT ABDOMEN PELVIS W from 08/07/2022 FINDINGS: There is ascites, as seen on prior CT scan earlier same date LIVER: Liver is enlarged and hyperechoic indicating steatosis, seen on the CT scan. GALLBLADDER/BILIARY: No gallstones nor gallbladder wall edema. The common hepatic duct isnot dilated, measuring 3-4mm at the level of nilo hepatis. PANCREAS: It is interesting to note that the pancreas has a relatively benign appearance on today's u ltrasound with no obvious focal abnormality nor dilatation of the pancreatic duct. The prominent alice unt of fluid around the pancreas seen on CT scan earlier same date is actually less evident on the ul trasound. This fluid has probably migrated towards the lateral aspects of the abdomen. SPLEEN: The spleen is not enlarged and there are no intrasplenic lesions evident. KIDNEYS:Kidneys exhibit normal size with no evidence of solid mass, calculus, nor hydronephrosis. No cortical cysts evident. ABDOMINAL AORTA: There is no evidence of abdominal aortic aneurysm. IVC: Normal diameter where visualized. IMPRESSION: 1. No evidence of cholelithiasis nor dilatation of the biliary tree. 2. Pancreas looks relatively benign when compared to the its appearance on the CT scan few hours channing or. There does not appear to be a large amount of surrounding fluid around the pancreas on the ultra sound exam. Please note that the CT scan earlier same date revealed evidence of significant pancreat itis. Please refer to that separate CT report. 3. There is some ascites again evident, as seen on the preceding CT scan. DATA REPOSITORY:
--- NOTE | 2022-08-07 02:00 | DI.CT_ITS ---
Exam(s) CT ABDOMEN PELVIS W EXAM: CT ABDOMEN PELVIS W CLINICAL HISTORY: abd pain diffuse since 1700, ttp worse upper, n/v. TECHNIQUE: Imaging Protocol: Axial computed tomography images with coronal and sagittal reformatted images were created and reviewed CONTRAST MATERIAL: Intravenous: Omnipaque-350 100cc Oral: None COMPARISON: No exams were available for comparison FINDINGS: VISUALIZED LUNG BASES: No nodules nor pleural effusions evident. ABDOMEN: There is ascites in the abdomen pelvis LIVER: Liver is diffusely hypodense implying steatosis. No discrete focal hepatic lesions identified . Intrahepatic ducts are not dilated. GALLBLADDER/BILIARY: No obvious gallbladder pathology. CBD is not dilated. PANCREAS: There is evidence of severe acute pancreatitis. There is abundant fluid around the entire pancreas extending into the pericolic gutters. No obvious pancreatic necrosis at this time. No free air. Pancreatic duct is not dilated. There are no pancreatic calcifications. No obvious mass in t he pancreas. No obvious radiopaque calculus in the CBD. The adjacent splenic vein is not thrombosed and there is no evidence of pseudoaneurysm of the gastroduodenal artery. Fluid from the pancreas al so surrounds duodenal C-loop SPLEEN: Spleen is not enlarged. No obvious intrasplenic lesions. No evidence of splenic infarction. Splenic and portal veins are patent. ADRENALS: There are no significant adrenal masses. KIDNEYS:No cysts evident. No solid renal masses. No calculi nor hydronephrosis.. ABDOMINAL AORTA: Abdominal aorta is not enlarged. LYMPH NODES:There is no retroperitoneal nor paraaortic adenopathy. ABDOMINAL WALL: No evidence of significant anterior abdominal wall nor inguinal hernia. GI: There is no evidence of bowel obstruction, free air, nor abscess. PELVIS: GI: No evidence of appendicitis.No evidence of sigmoid diverticulitis.There is no colitis pattern malachi dent. LYMPH NODES: There is no intrapelvic nor inguinal adenopathy. REPRODUCTIVE: Prostate size normal. URINARY BLADDER: Unremarkable OSSEOUS: No significant osseous lesions. IMPRESSION: 1. Findings are consistent with severe acute pancreatitis. There is no evidence of pancreatic necros is at this time. There is abundant surrounding fluid which extends into the paracolic gutters and pe lvis. No formed pseudocyst evident at this time. 2. Hepatic steatosis noted. No discrete hepatic mass evident. RADIATION DOSE DELIVERED: 838.04mGy.cm Total DLP DATA REPOSITORY: All CT scans at this facility are submitted to the National Radiology Data Registry (NRDR) Dose Index Registry (DIR) with the [employer] (A[employer]). RADIATION OPTIMIZATION: All CT scans at this facility use at least one of these dose optimization te chniques: automated exposure control; mA and/or kV adjustment per patient size (includes targeted exa ms where dose is matched to clinical indication); or iterative reconstruction.
[2022-08-07] MEDS: Lactated Ringers 1,000 ML 1000 ML IV (02:01)
[2022-08-07] MEDS: Ondansetron 4 MG/2 ML VIAL IVP ×3 (02:01→21:05)
[2022-08-07 02:06] LABS: Basophils % 0.6; Eosinophils % 0.2; HCT 50.8 % (40.0-50.0); HGB 18.1 g/dL (13.5-17.5); Immature Grans % 0.9; Lymphocytes % 9.8; MCH 33.1 pg (27.0-33.0); MCHC 35.6 % (32.0-36.0); MCV 93 fL (80-95); MPV 8.6 fL (8.0-11.0); Monocytes % 4.9; Neutrophils % 83.6; Platelet Count 410 10^3/uL (130-400); RBC 5.47 10^6/uL (4.36-5.78); RDW 11.9 % (11.8-14.1); RDW-SD 41.1 fL; WBC 21.63 10^3/uL (4.4-10.8)
[2022-08-07 02:07] LABS: Absolute Basophil Count 0.13 10^3/uL (0.0-0.2); Absolute Eosinophil Count 0.04 10^3/uL (0.0-0.7); Absolute Lymphocyte Count 2.12 10^3/uL (1.2-3.4); Absolute Monocyte Count 1.06 10^3/uL (0.1-0.8); Absolute Neutrophil Count 18.08 10^3/uL (1.2-6.7)
--- NOTE | 2022-08-07 02:11 | ED.GENADUL_ITS ---
Discharge Plan Disposition Patient Disposition: Admit to [facility] Condition: Serious Discharge Details Clinical Impression: Acute pancreatitis, Transaminitis Admit Date/Time: 08/07/22 03:50 Admit Provider: Edin Kauffman Attending Provider: Edin Kauffman Primary Care Provider: Estuardo Graham ED Provider: Venkat Dinh Discharge Data Discharge Date/Time-TO BE ENTERED AT DEPARTURE: 08/07/22 04:42 Discharge Physician: Venkat Dinh Medical Decision Making 214?- 22-year-old male here with severe diffuse abdominal pain with nausea vomiting since 5:00 yesterday afternoon. Patient is diffusely tender but worse in the left upper quadrant with rebound tenderness. Concern for acute intra- abdominal surgical process including perforated viscous. Plan to obtain CT of the abdomen pelvis. Consider other etiologies including pancreatitis. Patient to remain n.p.o. at this time. I will give IV Pepcid as well as IV ondansetron with IV fluid bolus. -- Labs reviewed and concerning for elevated lipase consistent with acute pancreatitis. LFTs also elevated. Patient denies acetaminophen use. He does drink alcohol almost daily, 2-5 drinks. Patient was given Dilaudid 1 mg IV for pain. CT of the abdomen pelvis was interpreted by radiology: Diffuse peripancreatic fluid indicating acute pancreatitis. No discrete pseudocyst formation. Fluid extends into the mesentery, the paracolic gutters, and the pelvis. Gallbladder and bile ducts noted to be normal with no calcified stones and no ductal dilatation. Liver noted to have fatty infiltration with hepatomegaly. No intra-abdominal free air. Plan to hospitalize for IV fluid and pain control. Lab Data Lab results reviewed: Yes I reviewed the patient's lab results. Labs: Laboratory Tests Range/Units 08/07/22 08/07/22 01:50 01:50 WBC (4.4-10.8) 10^3/uL 21.63 H RBC (4.36-5.78) 10^6/uL 5.47 Hgb (13.5-17.5) g/dL 18.1 H Hct (40.0-50.0) % 50.8 H MCV (80-95) fL 93 MCH (27.0-33.0) pg 33.1 H MCHC (32.0-36.0) % 35.6 RDW (11.8-14.1) % 11.9 Plt Count (130-400) 10^3/uL 410 H MPV (8.0-11.0) fL 8.6 Immature Gran % 0.9 Neutrophils % 83.6 Lymphocytes % 9.8 Monocytes % 4.9 Eosinophils % 0.2 Basophils % 0.6 Nucleated RBC % (0.0-0.3) % 0.0 Absolute Neutrophils (1.2-6.7) 10^3/uL 18.08 H Absolute Lymphocytes (1.2-3.4) 10^3/uL 2.12 Absolute Monocytes (0.1-0.8) 10^3/uL 1.06 H Absolute Eosinophils (0.0-0.7) 10^3/uL 0.04 Absolute Basophils (0.0-0.2) 10^3/uL 0.13 Sodium (136-145) mmol/L 138 Potassium (3.5-5.1) mmol/L 3.9 Chloride (98-107) mmol/L 102 Carbon Dioxide (21.0-32.0) mmol/L 25.0 Anion Gap (3-11) mmol/L 11.0 BUN (7-18) mg/dL 10 Creatinine (0.70-1.30) mg/dL 0.8 Est GFR (CKD-EPI 2020) (mL/min/1.73m2) 126.74 Glucose (74-106) mg/dL 171 H Calcium (8.5-10.1) mg/dL 7.6 L Magnesium (1.8-2.4) mg/dL 1.6 L Total Bilirubin (0.2-1.0) mg/dL 0.6 AST (15-37) U/L 331 H ALT (16-63) U/L 176 H Alkaline Phosphatase (46-116) U/L 257 H Total Protein (6.4-8.2) g/dL 7.7 Albumin (3.4-5.0) g/dL 3.6 Lipase (73-393) U/L 3293 H HPI General Mode of arrival: ambulatory . Date/Time Provider Initiated Documentation: 08/07/22 01:42 . Limitations to Documentation: no limitations . Information obtained by: patient . HPI Narrative: 48-year-old male presents with chief complaint of abdominal pain. Patient notes pain started around 1700 yesterday. Pain is localized to diffuse abdomen. Pain feels sharp like someone stabbing him. Pain is severe with no modifiers. He has associated nausea and vomiting. Not tolerating any oral fluids. Patient is concerned he may have food poisoning and thinks he may consumed undercooked chicken or pasta. Related Data Home Medications Medication Instructions Recorded Confirmed clonidine HCl 0.1 mg tablet 0.1 mg PO QHS 02/19/22 08/07/22 gabapentin 300 mg capsule 1,400 mg PO DAILY 02/19/22 08/07/22 mirtazapine 15 mg tablet 15 mg PO HS 08/07/22 08/07/22 clonazepam 0.5 mg tablet See Rx Instructions .Route 08/10/22 .COMPLEX #22 tabs gemfibrozil 600 mg tablet 600 mg PO BID@0730,1630 #60 tabs 08/10/22 multivitamin 1 tab PO DAILY #0 tabs 08/10/22 thiamine mononitrate (vit B1) 100 100 mg PO QAM #0 tabs 08/10/22 mg tablet (Vitamin B-1 (mononitrate)) Previous Rx's Medication Instructions Recorded clonazepam 0.5 mg tablet See Rx Instructions .Route 08/10/22 .COMPLEX #22 tabs gemfibrozil 600 mg tablet 600 mg PO BID@0730,1630 #60 tabs 08/10/22 multivitamin 1 tab PO DAILY #0 tabs 08/10/22 thiamine mononitrate (vit B1) 100 100 mg PO QAM #0 tabs 08/10/22 mg tablet (Vitamin B-1 (mononitrate)) Allergies Allergy/AdvReac Type Severity Reaction Status Date / Time No Known Allergies Allergy Verified 08/07/22 01:43 General Stated Complaint: Abd Prob HUONG: 3 Review of Systems All systems reviewed & are unremarkable except as noted in HPI and below Constitutional Constitutional: Denies fever(s) Cardiovascular Cardiovascular: Denies chest pain Gastrointestinal Gastrointestinal: Reports abdominal pain, Denies melena, Denies hematochezia, Reports nausea and Reports vomiting PFSH All Active Problems (Updated 08/11/22 @ 00:00 by BRUCE NEELY) Hypertriglyceridemia (Acute) Hypercholesteremia (Acute) Hyponatremia (Acute) Transaminitis (Acute) Tinnitus, bilateral (Acute) Genitofemoral neuralgia (Chronic) Medical History Allergic rhinitis Asthma, mild intermittent Mood disorder Surgical History H/O adenoidectomy Family History Father Alcohol use disorder Social History Smoking/Tobacco Use Status: Current every day Smoking risk assessment performed?: Yes Alcohol Intake: current Alcohol Intake frequency: a few times a week Drug use: Daily Substance use type: marijuana and prescription drug Do you feel safe at home: Yes Do you feel safe in your relationship?: Yes Additional Social history: Lives alone with 2 dogs. Exam Const General: cooperative and no acute distress HENMT Mouth: mucous membranes dry Eyes Conjunctivae: normal conjunctivae Sclera: normal sclerae Neck Neck: trachea midline and supple Resp Auscultation: clear to auscultation bilaterally, no rales, no rhonchi and no wheezes Cardio Rhythm: regular rhythm GI Inspection: non-distended Palpation: soft, no masses and tender (Diffuse but worse in left upper quadrant) with rebound tenderness Auscultation: hypoactive bowel sounds Skin General skin exam: no rashes or lesions noted Neuro General: patient alert, patient awake, patient oriented x3 and tone normal Extrem General: no edema Psych Appearance: grossly normal Mental Status: mental status grossly normal Speech and Movement: speech and movement normal Course Vital Signs Vital signs: Vital Signs Temperature 36.9 C 08/07/22 01:36 Pulse 109 H 08/07/22 01:36 Respiratory Rate 20 08/07/22 01:36 Blood Pressure 128/97 H 08/07/22 01:36 Pulse Oximetry 98 08/07/22 01:36 Temperature 36.9 C 08/07/22 01:36 Pulse 109 H 08/07/22 01:36 Respiratory Rate 20 08/07/22 01:36 Respiratory Effort 08/07/22 01:40 Blood Pressure 128/97 H 08/07/22 01:36 Blood Pressure Position Sitting 08/07/22 01:36 Pulse Oximetry 98 08/07/22 01:36 Oxygen Delivery Method Room Air 08/07/22 01:36 Oxygen Flow Rate 0 08/07/22 01:36 Pain Level 10 08/07/22 01:36 Lab/Test Results Lab/Test Results: Laboratory Tests Range/Units 08/07/22 01:50 WBC (4.4-10.8) 10^3/uL 21.63 H RBC (4.36-5.78) 10^6/uL 5.47 Hgb (13.5-17.5) g/dL 18.1 H Hct (40.0-50.0) % 50.8 H MCV (80-95) fL 93 MCH (27.0-33.0) pg 33.1 H MCHC (32.0-36.0) % 35.6 RDW (11.8-14.1) % 11.9 Plt Count (130-400) 10^3/uL 410 H MPV (8.0-11.0) fL 8.6 Immature Gran % 0.9 Neutrophils % 83.6 Lymphocytes % 9.8 Monocytes % 4.9 Eosinophils % 0.2 Basophils % 0.6 Nucleated RBC % (0.0-0.3) % 0.0 Absolute Neutrophils (1.2-6.7) 10^3/uL 18.08 H Absolute Lymphocytes (1.2-3.4) 10^3/uL 2.12 Absolute Monocytes (0.1-0.8) 10^3/uL 1.06 H Absolute Eosinophils (0.0-0.7) 10^3/uL 0.04 Absolute Basophils (0.0-0.2) 10^3/uL 0.13
[2022-08-07 02:16] LABS: Albumin 3.6 g/dL (3.4-5.0); Alkaline Phosphatase 257 U/L (46-116); BUN 10 mg/dL (7-18); Bilirubin, Total 0.6 mg/dL (0.2-1.0); CREATININE 0.8 mg/dL (0.70-1.30); Calcium 7.6 mg/dL (8.5-10.1); Chloride 102 mmol/L (98-107); Estimated GFR 126.74 (mL/min/1.73m2); Glucose 171 mg/dL (74-106); Magnesium 1.6 mg/dL (1.8-2.4); Potassium 3.9 mmol/L (3.5-5.1); Sodium 138 mmol/L (136-145); Total Protein 7.7 g/dL (6.4-8.2)
[2022-08-07] MEDS: Famotidine 20 MG/2 ML VIAL IVP (02:19)
[2022-08-07] MEDS: Omnipaque 350 MG/ML 100 ML BTL IJ (02:22)
[2022-08-07] MEDS: Normal Saline - Diluent 50 ML VIAL IJ (02:22)
[2022-08-07] MEDS: Normal Saline Flush 10 ML SYR IVP ×4 (02:23→18:32)
[2022-08-07 02:27] LABS: Lipase 3293 U/L (73-393)
[2022-08-07 02:29] LABS: ALT 176 U/L (16-63); AST 331 U/L (15-37)
[2022-08-07] MEDS: HYDROmorphone 2 MG/ML SYR 1 MG IVP ×3 (02:49→06:26)
--- NOTE | 2022-08-07 03:29 | DI.VRAD_ITS ---
PROCEDURE INFORMATION: Exam: CT Abdomen And Pelvis With Contrast Exam date and time: 08/07/2022 2:32 AM Age: 22 years old Clinical indication: Diffuse abdominal pain since 1700, TTP worse upper, n/v TECHNIQUE: Imaging protocol: Computed tomography of the abdomen and pelvis with contrast. Radiation optimization: All CT scans at this facility use at least one of these dose optimization techniques: automated exposure control; mA and/or kV adjustment per patient size (includes targeted exams where dose is matched to clinical indication); or iterative reconstruction. Contrast material: OMNIPAQUE 350; Contrast volume: 100 ml; Contrast route: INTRAVENOUS (IV); COMPARISON: SCROTUM US 12/20/2017 7:56 PM FINDINGS: Lungs: No acute infiltrate in either lung base. Liver: Hepatomegaly. Liver fatty infiltration. Gallbladder and bile ducts: Normal. No calcified stones. No ductal dilation. Pancreas: Diffuse peripancreatic fluid indicating acute pancreatitis. No discrete pseudocyst formation. Fluid extends into the mesentery, the paracolic gutters, and the pelvis. Spleen: Normal. No splenomegaly. Adrenal glands: Normal. No mass. Kidneys and ureters: A few renal cortical hypodensities. No hydronephrosis. No calcified renal or ureteral stones. No perinephric stranding or perinephric fluid. Stomach and bowel: Unremarkable. No obstruction. No mucosal thickening. Appendix: No evidence of appendicitis. Intraperitoneal space: No intraperitoneal free air. Fluid within the abdomen and pelvis. Vasculature: Unremarkable. No abdominal aortic aneurysm. Lymph nodes: No enlarged lymph nodes. Urinary bladder: Unremarkable as visualized. Reproductive: Unremarkable as visualized. Bones/joints: Unremarkable. No acute fracture. Soft tissues: Unremarkable. IMPRESSION: 1. Diffuse peripancreatic fluid indicating acute pancreatitis. No discrete pseudocyst formation. Fluid extends into the mesentery, the paracolic gutters, and the pelvis. 2. Liver fatty infiltration. Dictated and Authenticated by: Byron Ibanez MD. Ordering:LISA Robledo MD
[2022-08-07 03:55] LABS: Source Nasal/Nares
[2022-08-07 04:26] LABS: COVID-19 PCR Negative (Negative)
[2022-08-07] MEDS: Ketorolac 15 MG/ML VIAL IVP (04:55)
[2022-08-07] MEDS: MAGNESIUM SULFATE 2 GM/50 ML BAG IVPB (04:58)
[2022-08-07] MEDS: Lactated Ringers 1,000 ML 150 ML IV ×2 (05:03→12:54)
--- NOTE | 2022-08-07 06:03 | W.PM.HP.N ---
Date of service: 08/07/22 Time of Service: 06:30 Assessment and Plan Assessment and plan (1) Acute pancreatitis: Status: Acute Assessment and plan: IV fluids, analgesics including ketorolac and Dilaudid, trial of clear liquids as tolerated, ultrasound of the pancreas and liver and gallbladder this morning. Upon resolution of his pancreatitis patient should be referred to outpatient alcohol abstinence program. Patient states that AA did not work for him. Patient also should be prescribed medication to prevent recidivism such as acamprosate or naltrexone. Professional time spent interviewing and examining patient, discussion of goals of care with hospital team (care management, nursing and consulting professionals) was 45 minutes. (2) Transaminitis: Status: Acute Assessment and plan: Monitor response to treatment (3) Alcohol withdrawal: Status: Acute Assessment and plan: Alcohol withdrawal protocol per phenobarbital protocol. History of Present Illness History of Present Illness Chief Complaint: Abdominal pain, nausea and vomiting Narrative: 22-year-old male presents emergency department with cute onset of severe diffuse abdominal pain nausea and vomiting began around 5 PM August 06, 2022. He has had no hematemesis no melena no hematochezia. Patient has a past history of hypertension and generalized anxiety disorder as well as alcohol abuse. Patient drinks on a daily basis 3 to 512 ounce beers a day and occasionally binges on the weekends. He has been in AA in the past but has had no previous history of pancreatitis. There is a family history of alcoholism including his father and multiple family members on his father side. Patient denies use of other recreational drugs besides alcohol. He does smoke a pack per day. Work-up in the emergency department was consistent with acute pancreatitis. White cell count was elevated at 21,000, he was polycythemic hemoglobin 18.1 g hematocrit 50% and his lipase was elevated at 3293. He had a transaminitis with an AST of 331, ALT 176, alkaline phosphatase 257 with a normal total bilirubin of 0.6. Calcium was low at 7.6 blood sugar was elevated 171. Magnesium was low at 1.6. CT imaging of his abdomen pelvis was performed and showed diffuse peripancreatic fluid indicative of acute pancreatitis. No pseudocyst formation was seen. He has fatty liver infiltration. Gallbladder and bile ducts appeared normal with no calcified stones and no ductal dilatation. Treatment in the emergency department included a bolus of Ringer's lactate and he was given narcotic analgesics for his pain including Dilaudid 1 mg IV. Patient continues to have exquisite abdominal pain and nausea with dry heaves. Patient states his last bowel movement was last night. PFSH All Active Problems (Updated 08/07/22 @ 08:20 by Edin Kauffman MD) Alcohol withdrawal (Acute) Acute pancreatitis (Acute) Transaminitis (Acute) Tinnitus, bilateral (Acute) Genitofemoral neuralgia (Chronic) Medical History Allergic rhinitis Asthma, mild intermittent Mood disorder Surgical History H/O adenoidectomy Family History (Updated 08/07/22 @ 08:15 by Edin Kauffman MD) Father Alcohol use disorder Social History Smoking/Tobacco Use Status: Current every day Smoking risk assessment performed?: Yes Alcohol Intake: current Alcohol Intake frequency: a few times a week Drug use: Daily Substance use type: marijuana and prescription drug Do you feel safe at home: Yes Do you feel safe in your relationship?: Yes Additional Social history: Lives alone with 2 dogs. Meds Allergies and Home Medications Allergies Allergy/AdvReac Type Severity Reaction Status Date / Time No Known Allergies Allergy Verified 08/07/22 01:43 Home Medications Medication Instructions Recorded Confirmed Type clonidine HCl 0.1 mg tablet 0.1 mg PO QHS 02/19/22 08/07/22 History gabapentin 300 mg capsule 1,400 mg PO DAILY 02/19/22 08/07/22 History mirtazapine 15 mg tablet 15 tab PO 08/07/22 History Exam Narrative Exam Narrative: Obese white male sitting up at the bedside holding his abdomen and holding an emesis bag. HEENT is remarkable for dry mucous membranes no scleral icterus Neck supple nontender no JVD normal carotid pulses tachycardic no bruits Lungs are clear to auscultation Heart is regular but tachycardic without murmur rub or gallop Abdomen is distended tender in the epigastrium and left upper quadrant but not so much in the left or right lower quadrants. Bowel sounds are hypoactive he has voluntary guarding Extremities without peripheral cyanosis or edema Neuro exam no focal motor or sensory deficits. He has a slight tremor in his hands no asterixis no focal cranial nerve deficits. Results Imaging Abdomen CT scan report/results: report reviewed Imaging Studies: FINDINGS: Lungs: No acute infiltrate in either lung base. Liver: Hepatomegaly. Liver fatty infiltration. Gallbladder and bile ducts: Normal. No calcified stones. No ductal dilation. Pancreas: Diffuse peripancreatic fluid indicating acute pancreatitis. No discrete pseudocyst formation. Fluid extends into the mesentery, the paracolic gutters, and the pelvis. Spleen: Normal. No splenomegaly. Adrenal glands: Normal. No mass. Kidneys and ureters: A few renal cortical hypodensities. No hydronephrosis. No calcified renal or ureteral stones. No perinephric stranding or perinephric fluid. Stomach and bowel: Unremarkable. No obstruction. No mucosal thickening. Appendix: No evidence of appendicitis. Intraperitoneal space: No intraperitoneal free air. Fluid within the abdomen and pelvis. Vasculature: Unremarkable. No abdominal aortic aneurysm. Lymph nodes: No enlarged lymph nodes. Urinary bladder: Unremarkable as visualized. Reproductive: Unremarkable as visualized. Bones/joints: Unremarkable. No acute fracture. Soft tissues: Unremarkable. IMPRESSION: 1.? Diffuse peripancreatic fluid indicating acute pancreatitis.? No discrete pseudocyst formation.? Fluid extends into the mesentery, the paracolic gutters, and the pelvis. 2.? Liver fatty infiltration. Dictated and Authenticated by: Byron Ibanez MD. Labs Result diagrams: 08/07/22 01:50 08/07/22 01:50 Labs: Laboratory Results - last 24 hr 08/07/22 08/07/22 08/07/22 01:50 01:50 03:50 WBC 21.63 H RBC 5.47 Hgb 18.1 H Hct 50.8 H MCV 93 MCH 33.1 H MCHC 35.6 RDW 11.9 Plt Count 410 H MPV 8.6 Immature Gran % 0.9 Neutrophils % 83.6 Lymphocytes % 9.8 Monocytes % 4.9 Eosinophils % 0.2 Basophils % 0.6 Nucleated RBC % 0.0 Absolute Neutrophils 18.08 H Absolute Lymphocytes 2.12 Absolute Monocytes 1.06 H Absolute Eosinophils 0.04 Absolute Basophils 0.13 Sodium 138 Potassium 3.9 Chloride 102 Carbon Dioxide 25.0 Anion Gap 11.0 BUN 10 Creatinine 0.8 Est GFR (CKD-EPI 2020) 126.74 Glucose 171 H Calcium 7.6 L Magnesium 1.6 L Total Bilirubin 0.6 AST 331 H ALT 176 H Alkaline Phosphatase 257 H Total Protein 7.7 Albumin 3.6 Lipase 3293 H COVID-19 Source Nasal/Nares SARS-CoV-2 (PCR) Negative Last Vital Signs Temp 35.6 C L 08/07/22 05:04 Pulse 112 H 08/07/22 05:04 Resp 19 08/07/22 05:04 BP 141/109 H 08/07/22 05:04 Pulse Ox 94 08/07/22 05:04
[2022-08-07] MEDS: PHENobarbital 150 MG in Normal Saline 50 ML 100 MG IVPB (06:30)
[2022-08-07 06:31] LABS: Cholesterol 296 mg/dL (<200); HDL Cholesterol 33 mg/dL (40-60)
[2022-08-07 07:21] LABS: *AMPHETAMINES SCREEN URINE Negative (Negative); *BARBITURATES SCREEN URINE Negative (Negative); *BENZODIAZEPINES SCREEN URINE Negative (Negative); Cannabinoids THC Negative (Negative); Cocaine Screen,Urine Negative (Negative); METHADONE URINE SCREEN Negative (Negative); OPIATES URINE SCREEN Positive (Negative)
[2022-08-07 07:22] LABS: LDL CHOLESTEROL 51 mg/dL (<100)
[2022-08-07 07:24] LABS: Tricyclic Antidepressants Negative (Negative)
[2022-08-07 07:26] LABS: Triglyceride 2444 mg/dL (<150)
[2022-08-07] MEDS: Pantoprazole 40 MG VIAL IVP (07:49)
[2022-08-07] MEDS: Gabapentin 300 MG CAP PO ×3 (07:49→19:50)
[2022-08-07] MEDS: Folic Acid 1 MG TAB PO (07:49)
[2022-08-07] MEDS: Thiamine 100 MG TAB PO (07:50)
[2022-08-07] MEDS: Gabapentin 100 MG CAP PO ×3 (07:50→19:50)
[2022-08-07] MEDS: Multivitamin TAB 1 TAB PO (07:50)
[2022-08-07] MEDS: LORazepam 2 MG/ML VIAL 1 MG IVP (08:37)
[2022-08-07] MEDS: HYDROmorphone 2 MG/ML SYR IVP ×4 (08:38→21:06)
--- NOTE | 2022-08-07 09:33 | PDOC.CMIN ---
- If Service Date Differs Date of service: 08/07/22 Time of Service: 09:33 Care Management Initial Assess REASON FOR HOSPITALIZATION:: Acute alcoholic pancreatitis PAST MEDICAL HISTORY/PAST SURGICAL HISTORY:: All Active Problems (Updated 08/07/22 @ 08:20 by Edin Kauffman MD). Alcohol withdrawal (Acute). Acute pancreatitis (Acute). Transaminitis (Acute). Tinnitus, bilateral (Acute). Genitofemoral neuralgia (Chronic). Medical History . Allergic rhinitis. Asthma, mild intermittent. Mood disorder. Surgical History . H/O adenoidectomy PREVIOUS FUNCTIONAL STATUS/SOCIAL/FAMILY SUPPORTS:: Matthew lives in an apartment in [place] with his dog. 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 Matthew does not have any children but does have 2 sisters who live nearby and are supportive. He has a third sister who lives in [place] who is a nurse. Matthew is independent at baseline and does not receive any community services. CURRENT FUNCTIONAL STATUS:: Matthew was sitting up on the side of the bed when CM met with him. He was pleasant in manner and engaged easily with CM. Matthew informed CM that he continues to have abdominal pain. His abdomen appears distended and he was holding it at various times, grimacing with discomfort. He is now allowed to have a clear liquid diet and stated that he is tolerating it well with no nausea or vomiting. contacted a Telegraph Operator who met with Matthew today. Per his report, the visit went well. 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 Matthew verbalized to CM that he is concerned about his hospital bill as he has no insurance. made a referral to [facility] and provided Matthew with a Financial Assist packet. A CHW from [facility] will contact him by phone. ADVANCE DIRECTIVES:: none on file Has patient been provided with info about the portal/API?: Yes Did the patient sign up for the portal?: Yes (previously) CODE STATUS:: Full Code INSURANCE COVERAGE / FINANCIAL ISSUES:: self pay CURRENT HOME/COMMUNITY SERVICES/EQUIPMENT:: none currently PRIMARY CARE PHYSICIAN:: Estuardo Graham POTENTIAL DISCHARGE NEEDS:: follow up with PCP, personal health coach and plan of care PATIENT/FAMILY EDUCATION NEEDS:: Review of discharge instructions, limitations, follow up plan, and discuss [facility] [employer] TRANSPORTATION:: via private vehicle with family PLAN:: Anticipate Matthew will be discharged home with no new services. He will follow up with his community providers and plan of care and transport with family. CM will continue to support Matthew and assess for ongoing discharge concerns.
[2022-08-07] MEDS: PHENobarbital 110 MG in Normal Saline 50 ML 100 MG IVPB ×2 (09:42→13:02)
[2022-08-07] MEDS: Ketorolac 30 MG/ML VIAL IVP ×3 (10:17→23:28)
[2022-08-07 11:51] LABS: HCT 53.8 % (40.0-50.0); HGB 18.8 g/dL (13.5-17.5); MCH 32.9 pg (27.0-33.0); MCHC 34.9 % (32.0-36.0); MCV 94 fL (80-95); MPV 8.7 fL (8.0-11.0); Platelet Count 398 10^3/uL (130-400); RBC 5.71 10^6/uL (4.36-5.78); RDW 12.4 % (11.8-14.1); RDW-SD 42.5 fL; WBC 16.56 10^3/uL (4.4-10.8)
[2022-08-07 12:08] LABS: Albumin 3.2 g/dL (3.4-5.0); Anion Gap 12.8 mmol/L (3-11); BUN 10 mg/dL (7-18); Bilirubin, Total 1.1 mg/dL (0.2-1.0); CO2 20.2 mmol/L (21.0-32.0); CREATININE 1.2 mg/dL (0.70-1.30); Calcium 6.8 mg/dL (8.5-10.1); Chloride 95 mmol/L (98-107); Glucose 142 mg/dL (74-106); Magnesium 1.5 mg/dL (1.8-2.4); Sodium 128 mmol/L (136-145); Total Protein 7.4 g/dL (6.4-8.2)
[2022-08-07 12:12] LABS: Absolute Neutrophil Count 13.91 10^3/uL (1.2-6.7); Bands % 1
[2022-08-07 12:13] LABS: Absolute Lymphocyte Count 2.32 10^3/uL (1.2-3.4); Absolute Monocyte Count 0.33 10^3/uL (0.1-0.8); Atypical Lymphocytes % 3; Diff Comment Manual Differential; RBC Morphology Normal
[2022-08-07 12:31] LABS: ALT 172 U/L (16-63); AST 381 U/L (15-37); Alkaline Phosphatase 239 U/L (46-116)
[2022-08-07 13:47] LABS: Potassium 4.6 mmol/L (3.5-5.1)
[2022-08-07] MEDS: Fenofibrate, Micronized 48 MG TAB PO (14:05)
--- NOTE | 2022-08-07 14:34 | PHA.REVIEW2 ---
Pharmacy Admission Review - Admission Clinical Review (Last Reviewed 08/07/22 @ 08:15 by Edin Kauffman MD) Alcohol withdrawal (Acute) Acute pancreatitis (Acute) Transaminitis (Acute) No Known Allergies Allergy (Verified 08/07/22 01:43) Resuscitation Status Full Code Height 5 ft 5 in Weight 81.7 kg - Renal Dosing Renal Dosing: BUN 10 mg/dL (7-18) 08/07/22 11:40 Creatinine 1.2 mg/dL (0.70-1.30) 08/07/22 11:40 Medications needing adjustments: Reviewed (Crcl ~93.4 mL/min current meds okay) - Anticoagulation Anticoagulation: Hgb 18.8 g/dL (13.5-17.5) H 08/07/22 11:40 Hct 53.8 % (40.0-50.0) H 08/07/22 11:40 Plt Count 398 10^3/uL (130-400) 08/07/22 11:40 Creatinine 1.2 mg/dL (0.70-1.30) 08/07/22 11:40 DVT Prophylaxis: Reviewed (SCDs ordered) Therapeutic Anticoagulation: N/A - Opiate Usage Evaluate Pain Scale/Pains Meds: Reviewed Scheduled Bowel Reg ordered if on Opiates?: No (has PRN meds ordered) - Relevant Labs Sodium 128 mmol/L (136-145) L D 08/07/22 11:40 Potassium 4.6 mmol/L (3.5-5.1) 08/07/22 13:00 Chloride 95 mmol/L (98-107) L 08/07/22 11:40 Phosphorus 6.0 mg/dL (2.6-4.7) H 08/07/22 05:41 Magnesium 1.5 mg/dL (1.8-2.4) L 08/07/22 11:40 Electrolytes, C-Reactive P, ESR: Reviewed (IV mag replacement ordered) - DM Control DM Control: Glucose 142 mg/dL (74-106) H 08/07/22 11:40 DM Control: Reviewed (no DM noted in medical history, previous A1c was 4.9 from 2019) - Cardiac Review BP, HR, EF%: Reviewed (BP and HR have been elevated so far this admission) - Qtc Review QTc: N/A - IV to PO Switch IV Medications: Reviewed - Home Meds Home Med List reviewed: Intervened (per external med history patient takes mirtazapine at bedtime, gabapentin 600 QAM and 800 mg HS, clonidine 0.1 mg tid PRN. Provider made aware.) - Current meds Current Medication Order Review: Reviewed - Comments Comments/Follow Ups: Watch VS, LFTs, electrolytes, labs, phenobarbital dosing, and for med changes.
--- NOTE | 2022-08-07 17:58 | NUR.NOTE ---
Nursing Note: Vs are well out of norm, reported to the provider, still waiting on orders
[2022-08-07 19:58] LABS: Bilirubin Negative (Negative); Blood Trace-intact (Negative); Clarity Cloudy (Clear); Glucose Negative (Negative); Ketones Negative (Negative); Leukocyte Esterase Negative (Negative); Nitrite Negative (Negative); Specific Gravity >= 1.030 (1.005-1.025); Urobilinogen 0.2 EU/dL (Up TO 0.2); pH 5.5 (5-8)
[2022-08-07 20:07] LABS: Bacteria Few HPF (Negative); C & S Indicated? Yes; Casts 10-20 Hyaline LPF (Negative); Crystals Negative HPF (Negative); Epithelial Cells Few HPF (Negative); Mucus Moderate (Negative)
[2022-08-07] MEDS: PHENobarbital 130 MG/ML VIAL IVP (21:05)
[2022-08-07] MEDS: Mirtazapine 15 MG TAB PO (23:27)
[2022-08-08] VITALS (40 sets, daily range): BP systolic 100–167; BP diastolic 60–126; PULSE 102–147; RESP 12–39; TEMP 35.9–37.2; O2SAT 88–96
[2022-08-08] MEDS: HYDROmorphone 2 MG/ML SYR IVP ×2 (05:13→12:28)
[2022-08-08] MEDS: Ondansetron 4 MG/2 ML VIAL IVP (05:13)
[2022-08-08] MEDS: Lactated Ringers 1,000 ML 150 ML IV (05:31)
[2022-08-08 06:10] LABS: Abs Immature Grans 0.29 10^3/uL (0.0-0.06); HCT 49.4 % (40.0-50.0); HGB 17.2 g/dL (13.5-17.5); MCH 32.8 pg (27.0-33.0); MCHC 34.8 % (32.0-36.0); MCV 94 fL (80-95); MPV 10.4 fL (8.0-11.0); Platelet Count 242 10^3/uL (130-400); RBC 5.24 10^6/uL (4.36-5.78); RDW 12.3 % (11.8-14.1); RDW-SD 42.5 fL
[2022-08-08 06:56] LABS: Absolute Neutrophil Count 19.52 10^3/uL (1.2-6.7); Bands % 5
[2022-08-08 06:57] LABS: Absolute Eosinophil Count 0.71 10^3/uL (0.0-0.7); Absolute Monocyte Count 1.19 10^3/uL (0.1-0.8); Atypical Lymphocytes % 1; Diff Comment Manual Differential; Metamyelocytes % 2; RBC Morphology Normal
[2022-08-08] MEDS: Lactated Ringers 500 ML IV (07:03)
[2022-08-08 07:45] LABS: ALT 128 U/L (16-63); AST 160 U/L (15-37); Alkaline Phosphatase 179 U/L (46-116); BUN 23 mg/dL (7-18); Bilirubin, Total 1.2 mg/dL (0.2-1.0); CO2 21.9 mmol/L (21.0-32.0); CREATININE 2.7 mg/dL (0.70-1.30); Calcium 7.1 mg/dL (8.5-10.1); Estimated GFR 32.73 (mL/min/1.73m2); Glucose 147 mg/dL (74-106); Magnesium 1.3 mg/dL (1.8-2.4); Total Protein 6.8 g/dL (6.4-8.2)
[2022-08-08 07:50] LABS: Anion Gap 12.1 mmol/L (3-11); Chloride 93 mmol/L (98-107); Sodium 127 mmol/L (136-145)
[2022-08-08 07:51] LABS: Potassium 5.5 mmol/L (3.5-5.1)
[2022-08-08] MEDS: Breeza Beverage 473 ML BTL 900 ML PO (08:35)
[2022-08-08] MEDS: Gastrografin 120 ML BTL 25 ML PO (08:37)
[2022-08-08 08:41] LABS: Lab Add On Test DONE
--- NOTE | 2022-08-08 08:52 | W.PULMCC ---
General Date of Service Date of service: 08/08/22 Time of Service: 08:30 Reason for Admission to ICU: Triglyceridemic pancreatitis Assessment and Plan Assessment and plan (1) High blood triglycerides: Status: Acute (2) Acute pancreatitis: Status: Acute (3) Alcohol withdrawal: Status: Acute (4) [place] (acute kidney injury): Status: Acute (5) Hyponatremia: Status: Acute (6) Hyperkalemia: Status: Acute (7) Hypocalcemia: Status: Acute (8) Transaminitis: Status: Acute (9) Hypercholesteremia: Status: Acute Assessment and plan: This is a 22 yo admitted to the ICU for hypertriglyceridemic pancreatitis. Although he has an alcohol component, his impressive triglyceride level in this young man and no gall bladder pathology is enough evidence for this diagnosis. He needs to be immediately started on an insulin protocol. Typically we would have this continuously at 0.1u/kg/hr (for him 8U/hr) with D10 running for a goal glucose of 140-220mg/dL). I will also change his fibrate to allow for higher doses. We should trend fingersticks, electrolytes and triglyceride levels. He lost IV access so have requested anesthesia to place midlines. He should be tested for a familial cause for his hypertriglyceridemia as an outpatient. Recommendations Pulmonary: No acute concerns but high risk for ARDS Cardiac: No acute concerns Renal: [place] - could be ATN given pancreatitis - recommend stopping fluids (he is over 4 L positive already) - continue to monitor - stop ketorolac I&O: Intake & Output 08/05/22 08/06/22 08/07/22 08/08/22 23:59 23:59 23:59 23:59 Intake Total 4560 / 4560 152.8462 / 152.8462 Output Total 330 / 330 Balance 4230 / 4230 152.8462 / 152.8462 Weight 81.7 kg Daily Fluid Goal:: even GI Nutrition: Triglyceride-induced pancreatitis - discontinued fluids - recommend fat free diet - recommend insulin infusion - 0.1U/kg/hr --> keep insulin at 8U/hr continuously - D10W - start at 100cc/hr, but titrate D10W to a goal glucose of 140-220 - agree with repeat CT scan - will get LDH today and will repeat labs tomorrow to recalculate Ransons score - fingersticks q1hr - electrolytes q6hr - mag q6hr - triglyceride level q12hr - recommend outpatient testing for familial hypertriglyceridemia Date of Last Bowel Movement: 08/08/22 Infectious Disease: No acute concerns - can discontinue Zosyn if CT scan shows no abscess Hematologic: No acute concerns Neurologic: EtOH withdrawl - on phenobarb protocol - stop phenobarb when max of 15mg/kg reached Pain - scheduled Tylenol started 650mg q6hr - ketoralac discontinued - prn Dilaudid - if continued pain recommend ketamine infusion at 0.2mg/kg/hr (for him would be 16mg/hr) - Miralax made scheduled and not prn - milk of magnesia prn Endocrine: High cholesterol and triglycerides - recommend outpatient work up for familial causes Lines: 2 right midlines placed this morning Prophylaxis: Protonix Heparin started Code Status: Resuscitation Status Full Code Subjective Critical and life-threatening events over the past 24 hours: This is a 22 year old with a notable drinking history who was admitted to med-surg 08/07/22 for alcoholic pancreatitis. He is on phenobarb protocol for withdrawls. This morning physicians were notified that they were having difficulty getting a blood pressure, the patient looked more pale and his labs were worsening. He was transferred to the ICU. Upon my assessment his vital signs were fine but he did lose his IV access. I discovered that his triglycerides were over 2000. He did not have a gall bladder pathology seen on CT imaging. A TSH was not checked. He was being treated with pain control with narcotics and IVF's. He is not on any home medications that raise triglyceride levels. His [place] score on admission was not able to be calculated as no LDH was obtained. Depending on this level his score could have been 3 lending to likelihood of severe pancreatitis, however again this is not known. His creatinine was fine on admission but today is 2.7. He is ordered for a repeat CT scan to assess for possible sequela of pancreatitis. Today he is awake and cooperative. He only complains of anxiety and pain with movement but otherwise was doing fine. Exam Narrative Exam Narrative: POCUS 08/08/22: FAST exam completed, all 4 site visualized sufficiently. No free fluid in Keenan's pouch. Gall bladder generous but with no stones and no wall thickening seen. There was free fluid seen between the spleen and left kidney. The stomach was mildly distended (patient ate and drank prior to exam). Bladder was moderately distended (patient stated he did need to urinate). Pancreas not visualized. Mild ascited seen with free fluid between spleen and left kidney. Gen: NAD, normal respiratory effort, well-nourished HENT: PERRL Chest: No respiratory distress, normal appearance of chest, clear to auscultation bilaterally, no crackles or wheezes, normal inspiratory effort Heart: regular rate and rhythym, no murmurs, rubs or gallops Abdomen: Distended, hard and with epigastric tenderness Extremities: No clubbing, edema, cyanosis, rashes Neuro: AAOx3 , non focal Psych: cooperative, appropriate mental affect Most Recent VS/Results Last Vital Signs Temp 36.9 C 08/08/22 07:46 Pulse 133 H 08/08/22 07:46 Resp 18 08/08/22 07:46 BP 100/60 08/08/22 06:30 Pulse Ox 96 08/08/22 07:46 Laboratory Results - last 24 hr 08/07/22 08/07/22 08/07/22 05:41 11:40 11:40 WBC 16.56 H RBC 5.71 Hgb 18.8 H Hct 53.8 H MCV 94 MCH 32.9 MCHC 34.9 RDW 12.4 Plt Count 398 MPV 8.7 Immature Gran % 0.0 Neutrophils % 83.0 Band Neutrophils % 1 Lymphocytes % 11.0 Atypical Lymphs % 3 Monocytes % 2.0 Eosinophils % 0.0 Basophils % 0.0 Metamyelocytes % Nucleated RBC % 0.0 Absolute Neutrophils 13.91 H Absolute Lymphocytes 2.32 Absolute Monocytes 0.33 Absolute Eosinophils 0.00 Absolute Basophils 0.00 RBC Morphology Normal Sodium 128 L D Potassium Not Applicable Chloride 95 L Carbon Dioxide 20.2 L Anion Gap 12.8 H BUN 10 Creatinine 1.2 Est GFR (CKD-EPI 2020) 86.60 Glucose 142 H Calcium 6.8 L Magnesium 1.5 L Total Bilirubin 1.1 H AST 381 H ALT 172 H Alkaline Phosphatase 239 H Total Protein 7.4 Albumin 3.2 L Triglycerides 2444 H LDL Cholesterol Direct 51 Urine Color Urine Clarity Urine pH Ur Specific [place] Urine Protein Urine Ketones Urine Blood Urine Nitrite Urine Bilirubin Urine Urobilinogen Ur Leukocyte Esterase Urine RBC Urine WBC Ur Epithelial Cells Urine Crystals Urine Bacteria Urine Casts Urine Mucus Ur Culture Indicated? Urine Glucose Add-On Test Request 08/07/22 08/07/22 08/08/22 13:00 18:40 05:26 WBC RBC Hgb Hct MCV MCH MCHC RDW Plt Count MPV Immature Gran % Neutrophils % Band Neutrophils % Lymphocytes % Atypical Lymphs % Monocytes % Eosinophils % Basophils % Metamyelocytes % Nucleated RBC % Absolute Neutrophils Absolute Lymphocytes Absolute Monocytes Absolute Eosinophils Absolute Basophils RBC Morphology Sodium Cancelled Potassium 4.6 Cancelled Chloride Cancelled Carbon Dioxide Cancelled Anion Gap Cancelled BUN Cancelled Creatinine Cancelled Est GFR (CKD-EPI 2020) Cancelled Glucose Cancelled Calcium Cancelled Magnesium Cancelled Total Bilirubin Cancelled AST Cancelled ALT Cancelled Alkaline Phosphatase Cancelled Total Protein Cancelled Albumin Cancelled Triglycerides LDL Cholesterol Direct Urine Color Yellow Urine Clarity Cloudy Urine pH 5.5 Ur Specific [place] >= 1.030 H Urine Protein 100 H Urine Ketones Negative Urine Blood Trace-intact H Urine Nitrite Negative Urine Bilirubin Negative Urine Urobilinogen 0.2 Ur Leukocyte Esterase Negative Urine RBC 3-5 H Urine WBC 3-5 Ur Epithelial Cells Few Urine Crystals Negative Urine Bacteria Few Urine Casts 10-20 Hyaline Urine Mucus Moderate Ur Culture Indicated? Yes Urine Glucose Negative Add-On Test Request 08/08/22 08/08/22 08/08/22 05:26 05:26 06:57 WBC 23.80 H RBC 5.24 Hgb 17.2 Hct 49.4 MCV 94 MCH 32.8 MCHC 34.8 RDW 12.3 Plt Count 242 MPV 10.4 Immature Gran % See Differential Neutrophils % 77.0 Band Neutrophils % 5 Lymphocytes % 7.0 Atypical Lymphs % 1 Monocytes % 5.0 Eosinophils % 3.0 Basophils % 0.0 Metamyelocytes % 2 Nucleated RBC % 0.0 Absolute Neutrophils 19.52 H Absolute Lymphocytes 1.90 Absolute Monocytes 1.19 H Absolute Eosinophils 0.71 H Absolute Basophils 0.00 RBC Morphology Normal Sodium 127 L Potassium 5.5 H Chloride 93 L Carbon Dioxide 21.9 Anion Gap 12.1 H BUN 23 H Creatinine 2.7 H D Est GFR (CKD-EPI 2020) 32.73 Glucose 147 H Calcium 7.1 L Magnesium 1.3 L Total Bilirubin 1.2 H AST 160 H ALT 128 H Alkaline Phosphatase 179 H Total Protein 6.8 Albumin 3.0 L Triglycerides LDL Cholesterol Direct Urine Color Urine Clarity Urine pH Ur Specific [place] Urine Protein Urine Ketones Urine Blood Urine Nitrite Urine Bilirubin Urine Urobilinogen Ur Leukocyte Esterase Urine RBC Urine WBC Ur Epithelial Cells Urine Crystals Urine Bacteria Urine Casts Urine Mucus Ur Culture Indicated? Urine Glucose Add-On Test Request DONE Review of Systems All systems reviewed & are unremarkable except as noted in HPI and below Time spent with patient Time spent in Critical Care: 70 Time spent in Critical care included: Coordination of care, Chart review, Documenting critically ill care, Time at immediate bedside and Discussing critically ill care with other medical staff Multi-Disciplinary Checklist Lines/Tubes CENTRAL LINE: no ARTERIAL LINE: no SWANSON: no ENDOTRACHEAL TUBE: no ICU Maintenance GLUCOSE 140-180mg/dL: yes NUTRITION AT GOAL: yes PRESSURE ULCER: no RESTRAINTS: no ANTIBIOTICS(if yes, consider Stewardship): Yes Social Issues FAMILY UPDATED: no, Reason/Intervention: patient able to do this PT/OT: no, Reason/Intervention: not appropriate at this time 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
--- NOTE | 2022-08-08 09:25 | CMPROGNOTE_ITS ---
- If Service Date Differs Date of service: 08/08/22 Time of Service: 09:25 Care Management Progress Note S/O:Matthew was reclining in bed when CM met with him. He was transferred to the ICU this morning when his blood pressure became difficult to assess and his WBC and creatinine were noted to be significantly increased. At the time Matthew was holding onto his abdomen and stated that he was having a lot of pain. When asked if he had received pain medicine, he was not sure. He stated that he did not know who to ask. CM discussed this with his nurse who was able to medicate him with the PRN Hydromorphone that was ordered. Matthew had a repeat CT of the abdomen this morning. The ascites in his abdomen and pelvis has increased and he now has bilateral pleural effusions. Matthew has been persistently tachycardic and his oxygen saturation levels have been in the low to mid 90s. CM continues to follo w. A:Matthew ois a 22 year old young man admitted on 08/07/21 with pancreatitis P:Matthew was transferred to the ICU this morning as his labs have worsened and his blood pressure was difficult to obtain. He is being closely monitored for complications of pancreatitis. Matthew remains on the Phenobarbital CIWA protocol. CM will continue to support Matthew and assess for discharge concerns.
[2022-08-08 09:27] LABS: Hemoglobin A1C 5.7 % (<5.7)
[2022-08-08 09:30] LABS: Lab Add On Test DONE
[2022-08-08 09:50] LABS: LDH 800 U/L (85-227)
--- NOTE | 2022-08-08 09:53 | W.ANESVAS ---
Midline Placement Date Performed: 08/08/22 Procedure Time: 09:35 Requesting Provider: Christy Sotelo Procedure Location: Intensive Care Unit Sedation Given (Indicate Dose Given): No Sedation given Patient Mental Status: Awake Sterility: Hand Hygiene, Surgical Cap, Surgical Mask, Sterile Gloves, Sterile Drape/Sheet and Chlorhexidine Laterality: Right Insertion Site: Other Midline Device: Other Catheter Length: 10 cm Midline Procedure Procedure: 1% Lidocaine to skin and subcutaneous tissue with 25g needle and Catheter placed without resistance Dressing: Tegaderm Applied and Statlock Applied Blood Return: Present Flushes: Easily Ultrasound: Sterile probe cover and gel used Ultrasound Image Saved?: Yes Number of Attempts (See previous attempts in note section): 1 Procedure Tolerated: No Complications Procedure Outcome: Successful Procedure Comment:: 20 gauge to right basilic, 18 ga to right brachial. Performed By: Ar Paez
[2022-08-08] MEDS: MAGNESIUM SULFATE 4 GM/100 ML BAG IVPB (10:17)
[2022-08-08] MEDS: Acetaminophen 325 MG TAB 650 MG PO ×2 (10:27→15:35)
[2022-08-08] MEDS: Folic Acid 1 MG TAB PO (10:27)
[2022-08-08] MEDS: LORazepam 0.5 MG TAB PO (10:28)
[2022-08-08] MEDS: Gabapentin 100 MG CAP PO ×3 (10:29→19:39)
[2022-08-08] MEDS: Multivitamin TAB 1 TAB PO (10:29)
[2022-08-08] MEDS: Gabapentin 300 MG CAP PO ×3 (10:29→19:39)
[2022-08-08] MEDS: Thiamine 100 MG TAB PO (10:29)
[2022-08-08] MEDS: Pantoprazole 40 MG VIAL IVP (10:31)
--- NOTE | 2022-08-08 11:00 | DI.CT_ITS ---
Exam(s) CT ABDOMEN PELVIS WO EXAM: CT ABDOMEN PELVIS WO CLINICAL HISTORY: pancreatitis. TECHNIQUE: Imaging Protocol: Axial computed tomography images with coronal and sagittal reformatted images were created and reviewed. Oral: Yes COMPARISON: CT CT ABDOMEN PELVIS W from 08/07/2022 FINDINGS: ABDOMEN: Lung Bases: Small bilateral pleural effusions new since prior adjacent mild compressive changes. Tra ce pericardial effusion. Liver: Severe hepatic steatosis. No measurable mass. Gallbladder and biliary tract: No radiodense calculus or dilation. Contrast in gallbladder from previ ous day's scan. Pancreas: Limited evaluation due to lack of IV an oral contrast. Pancreas appears enlarged and shows surrounding fluid, consistent with severe pancreatitis. There is increased fluid seen in the left u pper quadrant around the spleen. Spleen: Normal. Kidneys: Normal size, contour and axis. No radiodense stones or obstructive uropathy. No masses seen. Adrenal glands: No masses seen. Lymph nodes: Within normal limits. Abdominal Aorta: Abdominal portion non-dilated. PELVIS: Bladder: Symmetric distention, no gross wall thickening. Residual contrast from previous day's exam. Bowel: Administered oral contrast is seen in distal small bowel and colon. No obstruction or bowel w all thickening. Peritoneal cavity: Increased amount of ascites in the paracolic gutters and pelvis. Reproductive organs: Within normal limits. Bones: Within normal limits. IMPRESSION: Severe pancreatitis. Evaluation pancreas limited without IV contrast. Increasing amount of ascites in the abdomen and pelvis. Small to moderate-sized bilateral pleural ef fusions. RADIATION DOSE DELIVERED: 979.14mGy.cm Total DLP DATA REPOSITORY: All CT scans at this facility are submitted to the National Radiology Data Registry (NRDR) Dose Index Registry (DIR) with the [employer] (A[employer]). RADIATION OPTIMIZATION: All CT scans at this facility use at least one of these dose optimization te chniques: automated exposure control; mA and/or kV adjustment per patient size (includes targeted exa ms where dose is matched to clinical indication); or iterative reconstruction.
[2022-08-08 11:36] LABS: TSH 6.69 uIU/mL (0.36-3.74)
[2022-08-08] MEDS: DEXTROSE 10%-WATER 500 ML 100 ML IV ×2 (11:47→21:49)
[2022-08-08] MEDS: PIPERACILLIN/TAZO 3.375 GM in Normal Saline 50 ML IVPB (11:48)
[2022-08-08] MEDS: INSULIN REGULAR IN 0.9 % NACL 100 UNIT/100 ML BAG 8 UNIT IV (11:48)
[2022-08-08] MEDS: Heparin 5,000 UNITS/ML VIAL 5000 UNITS SC ×2 (12:27→21:48)
[2022-08-08] MEDS: LORazepam 1 MG TAB 2 MG PO (14:56)
--- NOTE | 2022-08-08 15:12 | NUR.NOTE ---
Nursing Note: Pt removed two midlines while receiving tx. 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
--- NOTE | 2022-08-08 15:20 | NUR.NOTE ---
Nursing Note: Discussed IV access w/ hospitalist. Hospitalist advised that consult should still be active but he will place another PRN. 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
[2022-08-08 15:25] LABS: Lipase 1506 U/L (73-393)
[2022-08-08] MEDS: Gemfibrozil 600 MG TAB PO (15:35)
--- NOTE | 2022-08-08 17:47 | W.PM.PROGNOT ---
Date of Service Date of service: 08/08/22 Time of Service: 17:47 Assessment and Plan Assessment and plan (1) Acute pancreatitis: Status: Acute Assessment and plan: Etoh and Hypertriglyceridemia likely etiologies. Now in the ICU and BPs obtain; SBP in the 150's. Pain managment. Given low temp and elevated WBC count, obtained a repeat CT of abd/pelvis. W/O contrast d/t worsened renal function. CT showed severe pancreatitis. (2) Transaminitis: Status: Acute Assessment and plan: Alcoholic hepatitis. Monitoring. (3) Alcohol withdrawal: Status: Acute Assessment and plan: Alcohol withdrawal protocol per phenobarbital protocol. He pulled out both midline IVs placed today. Another placed by anesthesia. Gave 0.5mg po ativan prior to CT and then another 2mg po when he pulled his midlines out and scored on CIWA. After becoming more agitated but not aggressive, confused and need to have him cooperate with midline placement, Ketamine 150mg IM given. Once IV access re-established will continue with prn phenobarbitol. (4) Hypertriglyceridemia: Status: Acute Assessment and plan: He was not aware of any previous triglyceride or cholesterol levels. D10 NS and IV insulin drip initiated. Monitoring triglycerides. Subjective Subjective Interval history since last seen: NOtified this AM that nursing staff could not get a automatic cuff or manual BP reading. His extremities were cold with pallor. He was transferred to the ICU. Exam Narrative Exam Narrative: Obese white male sitting up at the bedside. His mentation is normal and he is drinking fluids. Appears pale. HEENT sclera clear. Neck supple nontender no JVD Lungs are clear to auscultation Heart is regular but tachycardic without murmur rub or gallop Abdomen is distended tender in the epigastrium and left upper quadrant. Bowel sounds are hypoactive he has voluntary guarding Extremities: No edema, calf tenderness. Very cool to touch. Neuro exam no focal motor or sensory deficits. He has a slight tremor in his hands no asterixis. Objective Last Vital Signs Temp 37.2 C 08/08/22 09:16 Pulse 122 H 08/08/22 17:03 Resp 23 08/08/22 17:03 BP 164/97 H 08/08/22 17:03 Pulse Ox 88 L 08/08/22 15:03 Laboratory Results - last 24 hr 01/10/2508/08/22 08/08/22 18:40 05:26 05:26 WBC 23.80 H RBC 5.24 Hgb 17.2 Hct 49.4 MCV 94 MCH 32.8 MCHC 34.8 RDW 12.3 Plt Count 242 MPV 10.4 Immature Gran % See Differential Neutrophils % 77.0 Band Neutrophils % 5 Lymphocytes % 7.0 Atypical Lymphs % 1 Monocytes % 5.0 Eosinophils % 3.0 Basophils % 0.0 Metamyelocytes % 2 Nucleated RBC % 0.0 Absolute Neutrophils 19.52 H Absolute Lymphocytes 1.90 Absolute Monocytes 1.19 H Absolute Eosinophils 0.71 H Absolute Basophils 0.00 RBC Morphology Normal Sodium Cancelled Potassium Cancelled Chloride Cancelled Carbon Dioxide Cancelled Anion Gap Cancelled BUN Cancelled Creatinine Cancelled Est GFR (CKD-EPI 2020) Cancelled Glucose Cancelled Hemoglobin A1c Calcium Cancelled Magnesium Cancelled Total Bilirubin Cancelled AST Cancelled ALT Cancelled Alkaline Phosphatase Cancelled Lactate Dehydrogenase Total Protein Cancelled Albumin Cancelled Lipase TSH Urine Color Yellow Urine Clarity Cloudy Urine pH 5.5 Ur Specific [place] >= 1.030 H Urine Protein 100 H Urine Ketones Negative Urine Blood Trace-intact H Urine Nitrite Negative Urine Bilirubin Negative Urine Urobilinogen 0.2 Ur Leukocyte Esterase Negative Urine RBC 3-5 H Urine WBC 3-5 Ur Epithelial Cells Few Urine Crystals Negative Urine Bacteria Few Urine Casts 10-20 Hyaline Urine Mucus Moderate Ur Culture Indicated? Yes Urine Glucose Negative Add-On Test Request 08/08/22 08/08/22 08/08/22 05:26 05:26 06:57 WBC RBC Hgb Hct MCV MCH MCHC RDW Plt Count MPV Immature Gran % Neutrophils % Band Neutrophils % Lymphocytes % Atypical Lymphs % Monocytes % Eosinophils % Basophils % Metamyelocytes % Nucleated RBC % Absolute Neutrophils Absolute Lymphocytes Absolute Monocytes Absolute Eosinophils Absolute Basophils RBC Morphology Sodium 127 L Potassium 5.5 H Chloride 93 L Carbon Dioxide 21.9 Anion Gap 12.1 H BUN 23 H Creatinine 2.7 H D Est GFR (CKD-EPI 2020) 32.73 Glucose 147 H Hemoglobin A1c 5.7 Calcium 7.1 L Magnesium 1.3 L Total Bilirubin 1.2 H AST 160 H ALT 128 H Alkaline Phosphatase 179 H Lactate Dehydrogenase Total Protein 6.8 Albumin 3.0 L Lipase TSH Urine Color Urine Clarity Urine pH Ur Specific [place] Urine Protein Urine Ketones Urine Blood Urine Nitrite Urine Bilirubin Urine Urobilinogen Ur Leukocyte Esterase Urine RBC Urine WBC Ur Epithelial Cells Urine Crystals Urine Bacteria Urine Casts Urine Mucus Ur Culture Indicated? Urine Glucose Add-On Test Request DONE 08/08/22 08/08/22 08/08/22 06:57 06:57 06:57 WBC RBC Hgb Hct MCV MCH MCHC RDW Plt Count MPV Immature Gran % Neutrophils % Band Neutrophils % Lymphocytes % Atypical Lymphs % Monocytes % Eosinophils % Basophils % Metamyelocytes % Nucleated RBC % Absolute Neutrophils Absolute Lymphocytes Absolute Monocytes Absolute Eosinophils Absolute Basophils RBC Morphology Sodium Potassium Chloride Carbon Dioxide Anion Gap BUN Creatinine Est GFR (CKD-EPI 2020) Glucose Hemoglobin A1c Calcium Magnesium Total Bilirubin AST ALT Alkaline Phosphatase Lactate Dehydrogenase 800 H Total Protein Albumin Lipase TSH 6.69 H Urine Color Urine Clarity Urine pH Ur Specific [place] Urine Protein Urine Ketones Urine Blood Urine Nitrite Urine Bilirubin Urine Urobilinogen Ur Leukocyte Esterase Urine RBC Urine WBC Ur Epithelial Cells Urine Crystals Urine Bacteria Urine Casts Urine Mucus Ur Culture Indicated? Urine Glucose Add-On Test Request DONE 08/08/22 15:00 WBC RBC Hgb Hct MCV MCH MCHC RDW Plt Count MPV Immature Gran % Neutrophils % Band Neutrophils % Lymphocytes % Atypical Lymphs % Monocytes % Eosinophils % Basophils % Metamyelocytes % Nucleated RBC % Absolute Neutrophils Absolute Lymphocytes Absolute Monocytes Absolute Eosinophils Absolute Basophils RBC Morphology Sodium Potassium Chloride Carbon Dioxide Anion Gap BUN Creatinine Est GFR (CKD-EPI 2020) Glucose Hemoglobin A1c Calcium Magnesium Total Bilirubin AST ALT Alkaline Phosphatase Lactate Dehydrogenase Total Protein Albumin Lipase 1506 H TSH Urine Color Urine Clarity Urine pH Ur Specific [place] Urine Protein Urine Ketones Urine Blood Urine Nitrite Urine Bilirubin Urine Urobilinogen Ur Leukocyte Esterase Urine RBC Urine WBC Ur Epithelial Cells Urine Crystals Urine Bacteria Urine Casts Urine Mucus Ur Culture Indicated? Urine Glucose Add-On Test Request PAWSS Have you Been Recently Intoxicated or Drunk Within the Last 30 days?: Yes Have you Ever Experienced Previous Episodes of Alcohol Withdrawal?: Yes Have you ever Experienced Withdrawal Seizures?: No Have you ever Experienced Delirium Tremens(DT)s?: Yes Have you ever undergone Alcohol Rehabilitation Treatment (i.e, inpt ot outpatient treatment programs)?: No Have you ever Experienced Blackouts?: Yes Have you ever Combined Alcohol with other Downers within the last 90 days?: No Have you ever Combined Alcohol with any other Substance of Abuse during the last 90 days?: No Positive Blood Alcohol level on Presentation? [PCS.BAL]: Yes Evidence of Increased Autonomic Activity (i.e. HR>120, tremor, sweating, agitation, nausea)?: Yes Result: 6 Time Spent with Patient Time Spent with Patient: 35-49 minutes Time was spent: obtaining and/or reviewing separately otained hiistory, ordering medications,tests, procedures, referring, communicating with other health menagerie caretaker, counseling the patient and care coordination
--- NOTE | 2022-08-08 17:56 | W.ANESVAS ---
Midline Placement Date Performed: 08/08/22 Procedure Time: 17:50 Requesting Provider: Ron Degroot Procedure Location: Intensive Care Unit Sedation Given (Indicate Dose Given): No Sedation given Patient Mental Status: Other (confused) Sterility: Hand Hygiene, Surgical Cap, Surgical Mask, Sterile Gloves, Sterile Drape/Sheet and Chlorhexidine Laterality: Left Insertion Site: Other Midline Device: PowerGlide Pro 18G Catheter Length: 10 cm Midline Procedure Procedure: 1% Lidocaine to skin and subcutaneous tissue with 25g needle and Catheter placed without resistance Dressing: Tegaderm Applied and Other (sutured) Blood Return: Present Flushes: Easily Ultrasound: Sterile probe cover and gel used Ultrasound Image Saved?: Yes Number of Attempts (See previous attempts in note section): 1 Procedure Tolerated: No Complications Procedure Outcome: Successful Procedure Comment:: Pt pulled the other 2 midlines that where placed earlier in the day. Attempted brachial without success and site abandoned. 18 ga 10 cm placed in the left brachial with significant difficulty due to movement. Performed By: Ar Paez
[2022-08-08 18:41] LABS: Anion Gap 9.6 mmol/L (3-11); BUN 34 mg/dL (7-18); CO2 25.4 mmol/L (21.0-32.0); CREATININE 2.6 mg/dL (0.70-1.30); Calcium 7.4 mg/dL (8.5-10.1); Chloride 89 mmol/L (98-107); Estimated GFR 34.24 (mL/min/1.73m2); Glucose 136 mg/dL (74-106); Magnesium 2.2 mg/dL (1.8-2.4); Potassium 4.2 mmol/L (3.5-5.1); Triglyceride 637 mg/dL (<150)
[2022-08-08 18:45] LABS: Sodium 124 mmol/L (136-145)
[2022-08-08 18:56] LABS: LDL CHOLESTEROL 20 mg/dL (<100)
[2022-08-08] MEDS: PHENobarbital 130 MG/ML VIAL IVP ×3 (19:40→21:58)
[2022-08-08 22:45] LABS: Anion Gap 9.8 mmol/L (3-11); BUN 35 mg/dL (7-18); CO2 24.2 mmol/L (21.0-32.0); CREATININE 2.4 mg/dL (0.70-1.30); Calcium 7.5 mg/dL (8.5-10.1); Chloride 93 mmol/L (98-107); Glucose 121 mg/dL (74-106); Potassium 3.9 mmol/L (3.5-5.1); Sodium 127 mmol/L (136-145)
[2022-08-08] MEDS: DEXTROSE 10%-WATER 500 ML 150 ML IV (23:38)
[2022-08-09] VITALS (102 sets, daily range): BP systolic 80–169; BP diastolic 47–136; PULSE 76–151; RESP 9–30; TEMP 37.3–38.1; O2SAT 80–96
[2022-08-09] MEDS: LORazepam 2 MG/ML VIAL 1 MG IVP ×2 (02:50→03:25)
[2022-08-09] MEDS: dexmedeTOMidine IN 0.9 % NACL 400 MCG/100 ML BTL 6.128 MCG IV (02:50)
[2022-08-09] MEDS: DEXTROSE 10%-WATER 500 ML 200 ML IV ×2 (03:14→05:59)
[2022-08-09 05:52] LABS: Abs Immature Grans 0.14 10^3/uL (0.0-0.06); HGB 12.4 g/dL (13.5-17.5); MCH 32.5 pg (27.0-33.0); MCHC 35.4 % (32.0-36.0); MCV 92 fL (80-95); MPV 9.4 fL (8.0-11.0); RBC 3.81 10^6/uL (4.36-5.78)
[2022-08-09 06:08] LABS: Anion Gap 9.1 mmol/L (3-11); BUN 30 mg/dL (7-18); CO2 25.9 mmol/L (21.0-32.0); CREATININE 1.9 mg/dL (0.70-1.30); Calcium 7.4 mg/dL (8.5-10.1); Chloride 91 mmol/L (98-107); Estimated GFR 49.89 (mL/min/1.73m2); Glucose 127 mg/dL (74-106); LDH 867 U/L (85-227); Potassium 3.2 mmol/L (3.5-5.1); Sodium 126 mmol/L (136-145); Triglyceride 457 mg/dL (<150)
[2022-08-09 06:10] LABS: ALT 79 U/L (16-63); AST 114 U/L (15-37); Albumin 2.4 g/dL (3.4-5.0); Alkaline Phosphatase 111 U/L (46-116); Bilirubin, Direct 0.3 mg/dL (0.0-0.2); Bilirubin, Total 1.1 mg/dL (0.2-1.0); Total Protein 5.7 g/dL (6.4-8.2)
[2022-08-09 06:17] LABS: Absolute Basophil Count 0.15 10^3/uL (0.0-0.2); Absolute Eosinophil Count 0.46 10^3/uL (0.0-0.7); Absolute Lymphocyte Count 0.92 10^3/uL (1.2-3.4); Absolute Monocyte Count 0.62 10^3/uL (0.1-0.8); Absolute Neutrophil Count 12.94 10^3/uL (1.2-6.7); Bands % 4; Platelet Count 225 10^3/uL (130-400)
[2022-08-09 06:18] LABS: Diff Comment Manual Differential; Metamyelocytes % 1; RBC Morphology Normal
--- NOTE | 2022-08-09 06:58 | W.EVENT ---
Date of service: 08/09/22 Time of Service: 02:40 Event Note: I was called to the ICU at 2:40 AM with code francois and patient having severe agitation, swinging at the nurses and having severe loose bowel movement in his bed with alcohol withdrawal. Patient was not complain of pain with his negative other than was on insulin drip for hypertriglyceridemia. He slowly improved with 1 dose of Ativan 1 mg IV and Precedex was planned to be initiated after reaching the soft ceiling of phenobarbital. Once cleaned patient had soft wrist restraints placed over his wrist but no physical restraints were attached to the bed or required. He calmed down as we initiated Precedex at 0.4 mcg/kg/h titrate up to 0.8 mcg/kg/h after going up to 1 mcg kilogram per hour for a brief couple of minutes and then weaning consistently over the morning with Precedex stopped at around 5 AM. The patient was not responding to the nurse but had stable vital signs and when I approached him to reevaluate he responded to sternal rub and awakened. He appeared stable at this time and was not requiring restraints. Physical exam was stable with patient's lungs clear and heart having regular rate and rhythm, patient was breathing comfortably on his own and skin was warm and dry. Vital signs were stable with good oxygenation. I did spend 45 minutes with the patient with direct care during this event assessing the clinical situation with discussion amongst caregivers and plan of care with medical therapy which had high risk for acute decompensation. Time Spent with Patient Time spent in critical care(minutes): 45 Time Spent Included: Coordination of care, Chart review, Documenting critically ill care, Time at immediate bedside and Discussing critically ill care with other medical staff
[2022-08-09] MEDS: POTASSIUM CHLORIDE 10 MEQ/100 ML BAG 100 MEQ IVPB ×3 (07:26→09:28)
[2022-08-09] MEDS: Polyethylene Glycol 3350 17 GM PACKET PO (08:02)
[2022-08-09] MEDS: Acetaminophen 325 MG TAB 650 MG PO ×3 (08:03→22:37)
[2022-08-09] MEDS: Multivitamin TAB 1 TAB PO (08:03)
[2022-08-09] MEDS: Gemfibrozil 600 MG TAB PO ×2 (08:03→16:29)
[2022-08-09] MEDS: Gabapentin 300 MG CAP PO ×3 (08:03→19:40)
[2022-08-09] MEDS: Pantoprazole 40 MG VIAL IVP (08:05)
[2022-08-09] MEDS: Folic Acid 1 MG TAB PO (08:05)
[2022-08-09] MEDS: Normal Saline Flush 10 ML SYR IVP ×2 (08:05→16:29)
[2022-08-09] MEDS: Thiamine 100 MG TAB PO (08:05)
[2022-08-09] MEDS: Gabapentin 100 MG CAP PO ×3 (08:06→19:40)
[2022-08-09] MEDS: Heparin 5,000 UNITS/ML VIAL 5000 UNITS SC ×2 (09:28→22:37)
[2022-08-09] MEDS: Normal Saline 1,000 ML 80 ML IV (09:38)
--- NOTE | 2022-08-09 09:44 | PDOC.CMPRO ---
- If Service Date Differs Date of service: 08/09/22 Time of Service: 09:44 Care Management Progress Note S/O: Matthew remains acute in the ICU at this time, CODE ERAZO response this morning r/t agitation; incontinence. Matthew continues to be closely montiored and treated for ETOH withdrawal. CM continues to follow. A: 22 year old male admitted to [facility] 08/07/22 for Acute Pancreatitis P: Matthew continues to be closely monitored and treated for ETOH withdrawal. CM continues to follow.
[2022-08-09] MEDS: dexmedeTOMidine IN 0.9 % NACL 400 MCG/100 ML BTL 14.4 MCG IV (10:14)
[2022-08-09] MEDS: HYDROmorphone 2 MG/ML SYR IVP ×3 (12:26→23:38)
[2022-08-09] MEDS: Albuterol 2.5 MG/3 ML INH SOLN VIAL UPD (13:03)
[2022-08-09] MEDS: Nicotine 21 MG/24 HR PATCH TD (13:51)
[2022-08-09 16:45] LABS: Anion Gap 7.2 mmol/L (3-11); BUN 27 mg/dL (7-18); CO2 24.8 mmol/L (21.0-32.0); CREATININE 1.4 mg/dL (0.70-1.30); Calcium 7.6 mg/dL (8.5-10.1); Chloride 92 mmol/L (98-107); Estimated GFR 71.98 (mL/min/1.73m2); Glucose 116 mg/dL (74-106)
[2022-08-09 16:55] LABS: Sodium 124 mmol/L (136-145)
[2022-08-09 16:56] LABS: Potassium 4.9 mmol/L (3.5-5.1)
--- NOTE | 2022-08-09 17:06 | PGE_ITS ---
Date of Service Date of service: 08/09/22 Time of Service: 17:55 Assessment and Plan Assessment and plan (1) Acute pancreatitis: Status: Acute Assessment and plan: Etoh and Hypertriglyceridemia likely etiologies. Now in the ICU Lipase now decreased by half. WBC count improved. No longer c/o abd pain. Exam was without tenderness. CT showed severe pancreatitis. Fluid and electrolyte management. (2) Transaminitis: Status: Acute Assessment and plan: Alcoholic hepatitis. Improving. Monitoring. (3) Alcohol withdrawal: Status: Acute Assessment and plan: Alcohol withdrawal protocol per phenobarbital protocol. He reached the soft stop for phenobarbitol administration. He pulled out both midline IVs placed. Another placed by anesthesia. Increased agitation and now on precedex. Thiamine, folate, MVI. (4) Hypertriglyceridemia: Status: Acute Assessment and plan: He was not aware of any previous triglyceride or cholesterol levels. D10 NS and IV insulin drip initiated. Triglycerides improved significantly:2444 > 457. Cont Lopid BID. (5) [place] (acute kidney injury): Status: Acute Assessment and plan: Improving. Stopping IV hydration. Encourage oral. (6) Hyponatremia: Status: Acute Assessment and plan: Likely related to Etoh vs SIADH. Stopped IV fluids and will give lasix 20mg IV x1 Monitor. Subjective Subjective Patient reports: afebrile; denies diarrhea, vomiting or shortness of breath Interval history since last seen: Pt became combative / alcohol withdrawal. Precedex initiated and placed in soft wrist restraints. Exam Narrative Exam Narrative: Lying in bed. Eyes closed but arouses to conversation. Confused but does have some lucid thoughts that he expresses. Const General: no acute distress Nutritional Appearance: overweight Orientation: oriented to person Eyes General: appearance normal, both eyes and all related structures Sclera: sclerae normal Resp Effort & Inspection: normal respiratory effort Auscultation: clear to auscultation bilaterally Cardio Rate: regular rate Rhythm: regular rhythm Heart Sounds: S1 normal and S2 normal GI Inspection: distended Palpation: no guarding and nontender Auscultation: hypoactive bowel sounds Skin General skin exam: no rashes or lesions noted Neuro General: no focal motor deficits Cranial Nerves: facial strength normal Speech: speech normal Extrem General: no pedal edema Objective Last Vital Signs Temp 37.3 C 08/09/22 15:19 Pulse 79 08/09/22 16:32 Resp 15 08/09/22 16:32 BP 114/67 08/09/22 16:32 Pulse Ox 93 08/09/22 16:02 Laboratory Results - last 24 hr 08/08/22 08/08/22 08/09/22 18:16 22:13 05:12 WBC 15.40 H RBC 3.81 L Hgb 12.4 L D Hct 35.0 L MCV 92 MCH 32.5 MCHC 35.4 RDW 12.0 Plt Count 225 MPV 9.4 Immature Gran % See Differential Neutrophils % 80.0 Band Neutrophils % 4 Lymphocytes % 6.0 Monocytes % 4.0 Eosinophils % 3.0 Basophils % 1.0 Metamyelocytes % 1 Nucleated RBC % 1.0 H Absolute Neutrophils 12.94 H Absolute Lymphocytes 0.92 L Absolute Monocytes 0.62 Absolute Eosinophils 0.46 Absolute Basophils 0.15 RBC Morphology Normal Sodium 124 L 127 L Potassium 4.2 D 3.9 Chloride 89 L 93 L Carbon Dioxide 25.4 24.2 Anion Gap 9.6 9.8 BUN 34 H 35 H Creatinine 2.6 H 2.4 H Est GFR (CKD-EPI 2020) 34.24 37.70 Glucose 136 H 121 H Calcium 7.4 L 7.5 L Magnesium 2.2 Total Bilirubin Conjugated Bilirubin AST ALT Alkaline Phosphatase Lactate Dehydrogenase Total Protein Albumin Triglycerides 637 H LDL Cholesterol Direct 20 08/09/22 08/09/22 08/09/22 05:12 05:12 05:12 WBC RBC Hgb Hct MCV MCH MCHC RDW Plt Count MPV Immature Gran % Neutrophils % Band Neutrophils % Lymphocytes % Monocytes % Eosinophils % Basophils % Metamyelocytes % Nucleated RBC % Absolute Neutrophils Absolute Lymphocytes Absolute Monocytes Absolute Eosinophils Absolute Basophils RBC Morphology Sodium 126 L Potassium 3.2 L Chloride 91 L Carbon Dioxide 25.9 Anion Gap 9.1 BUN 30 H Creatinine 1.9 H Est GFR (CKD-EPI 2020) 49.89 Glucose 127 H Calcium 7.4 L Magnesium Total Bilirubin 1.1 H Conjugated Bilirubin 0.3 H AST 114 H ALT 79 H Alkaline Phosphatase 111 Lactate Dehydrogenase 867 H Total Protein 5.7 L Albumin 2.4 L Triglycerides 457 H LDL Cholesterol Direct 08/09/22 08/09/22 12:00 16:21 WBC RBC Hgb Hct MCV MCH MCHC RDW Plt Count MPV Immature Gran % Neutrophils % Band Neutrophils % Lymphocytes % Monocytes % Eosinophils % Basophils % Metamyelocytes % Nucleated RBC % Absolute Neutrophils Absolute Lymphocytes Absolute Monocytes Absolute Eosinophils Absolute Basophils RBC Morphology Sodium Cancelled 124 L Potassium Cancelled 4.9 D Chloride Cancelled 92 L Carbon Dioxide Cancelled 24.8 Anion Gap Cancelled 7.2 BUN Cancelled 27 H Creatinine Cancelled 1.4 H Est GFR (CKD-EPI 2020) Cancelled 71.98 Glucose Cancelled 116 H Calcium Cancelled 7.6 L Magnesium Total Bilirubin Conjugated Bilirubin AST ALT Alkaline Phosphatase Lactate Dehydrogenase Total Protein Albumin Triglycerides LDL Cholesterol Direct PAWSS Have you Been Recently Intoxicated or Drunk Within the Last 30 days?: Yes Have you Ever Experienced Previous Episodes of Alcohol Withdrawal?: Yes Have you ever Experienced Withdrawal Seizures?: No Have you ever Experienced Delirium Tremens(DT)s?: Yes Have you ever undergone Alcohol Rehabilitation Treatment (i.e, inpt ot outpatient treatment programs)?: No Have you ever Experienced Blackouts?: Yes Have you ever Combined Alcohol with other Downers within the last 90 days?: No Have you ever Combined Alcohol with any other Substance of Abuse during the last 90 days?: No Positive Blood Alcohol level on Presentation? [PCS.BAL]: Yes Evidence of Increased Autonomic Activity (i.e. HR>120, tremor, sweating, agitation, nausea)?: Yes Result: 6 Time Spent with Patient Time Spent with Patient: 35-49 minutes Time was spent: preparing to see the patient(eg.review tests), ordering medica tions,tests, procedures, referring, communicating with other health adult daycare coordinator, indepentently interpreting results, counseling the patient and care coordination
[2022-08-09] MEDS: dexmedeTOMidine IN 0.9 % NACL 400 MCG/100 ML BTL 14.298 MCG IV (17:29)
[2022-08-09] MEDS: Furosemide 20 MG/2 ML VIAL IVP (18:50)
[2022-08-09] MEDS: cloNIDine 0.1 MG TAB PO (22:37)
[2022-08-09] MEDS: Mirtazapine 15 MG TAB PO (22:37)
[2022-08-10] VITALS (28 sets, daily range): BP systolic 94–135; BP diastolic 59–90; PULSE 80–131; RESP 4–30; TEMP 36–37.4; O2SAT 83–95
[2022-08-10] MEDS: dexmedeTOMidine IN 0.9 % NACL 400 MCG/100 ML BTL 12.255 MCG IV (01:11)
[2022-08-10 06:35] LABS: HCT 29.1 % (40.0-50.0); HGB 10.4 g/dL (13.5-17.5); MCH 33.8 pg (27.0-33.0); MCHC 35.7 % (32.0-36.0); MCV 95 fL (80-95); MPV 9.2 fL (8.0-11.0); Platelet Count 207 10^3/uL (130-400); RBC 3.08 10^6/uL (4.36-5.78); RDW 12.3 % (11.8-14.1); RDW-SD 41.7 fL; WBC 14.12 10^3/uL (4.4-10.8)
--- NOTE | 2022-08-10 06:57 | PUCC_ITS ---
General Date of Service Date of service: 08/10/22 Time of Service: 06:57 Reason for Admission to ICU: Hyper triglyceridemic pancreatitis Agitation Assessment and Plan Assessment and plan (1) High blood triglycerides: Status: Acute (2) Acute pancreatitis: Status: Acute (3) Alcohol withdrawal: Status: Acute (4) BROOKLYN (acute kidney injury): Status: Acute (5) Hyponatremia: Status: Acute (6) Hyperkalemia: Status: Acute (7) Hypocalcemia: Status: Acute (8) Transaminitis: Status: Acute (9) Hypercholesteremia: Status: Acute Assessment and plan: This is a 22 yo admitted to the ICU for hypertriglyceridemic pancreatitis. Although he has an alcohol component, his impressive triglyceride level in this young man and no gall bladder pathology is enough evidence for this diagnosis. He received insulin infusion therapy which dropped his triglycerides to below 500 swiftly. His agitation has also resolved with Precedex therapy. Currently he seems to have responded nicely to therapy despite a severe pancreatitis. He will be safe for med surg status today. Recommendations Pulmonary: No acute concerns but high risk for ARDS Cardiac: No acute concerns Renal: BR[place]N - resolved I&O: Intake & Output 08/07/22 08/08/22 08/09/22 08/10/22 23:59 23:59 23:59 23:59 Intake Total 4560 / 4560 2360.3472 / 2360.3472 3252.757 / 3252.757 107.047 / 107.047 Output Total 330 / 330 225 / 225 1925 / 1925 1150 / 1150 Balance 4230 / 4230 2135.3472 / 2135.3472 1327.757 / 1327.757 -1042.953 / - 1042.953 Weight 81.7 kg 83.7 kg Daily Fluid Goal:: even GI Nutrition: Triglyceride-induced pancreatitis - recommend fat free diet - s/p insulin infusion therapy - recommend outpatient testing for familial hypertriglyceridemia Date of Last Bowel Movement: 08/09/22 Infectious Disease: No acute concerns Zosyn stopped Hematologic: No acute concerns Neurologic: EtOH withdrawl - s/p phenobarb - improved - can DC Precedex order Pain - scheduled Tylenol started 650mg q6hr - ketoralac discontinued - prn Dilaudid - consider discontiuing this now that pain is much improved - Miralax - milk of magnesia prn Endocrine: High cholesterol and triglycerides - recommend outpatient work up for familial causes Lines: Midline Prophylaxis: Protonix Heparin Code Status: Resuscitation Status Full Code Subjective Critical and life-threatening events over the past 24 hours: Matthew did become very agitated yesterday which was thought to be withdrawls. He was treated for this with IM ketamine and ultimately needed Precedex infusion. The Precedex was stopped this morning and he seems to be doing much better. His pancreatitis is much improved and his triglycerides dropped very nicely. Today he is feeling much better and states the pain is significantly improved. Cumulative Yina's score yesterday (48hr) was 6, which equates to a 40% mortality risk. Exam Narrative Exam Narrative: POCUS 08/08/22: FAST exam completed, all 4 site visualized sufficiently. No free fluid in Keenan's pouch. Gall bladder generous but with no stones and no wall thickening seen. There was free fluid seen between the spleen and left kidney. The stomach was mildly distended (patient ate and drank prior to exam). Bladder was moderately distended (patient stated he did need to urinate). Pancreas not visualized. Mild ascited seen with free fluid between spleen and left kidney. Gen: NAD, normal respiratory effort, well-nourished HENT: PERRL Chest: No respiratory distress, normal appearance of chest, clear to auscultation bilaterally, no crackles or wheezes, normal inspiratory effort Heart: regular rate and rhythym, no murmurs, rubs or gallops Abdomen: Distended, hard and with epigastric tenderness Extremities: No clubbing, edema, cyanosis, rashes Neuro: AAOx3 , non focal Psych: cooperative, appropriate mental affect Most Recent VS/Results Last Vital Signs Temp 37.4 C 08/10/22 05:38 Pulse 83 08/10/22 05:38 Resp 17 08/10/22 05:38 BP 119/74 08/09/22 22:21 Pulse Ox 88 L 08/09/22 22:21 Laboratory Results - last 24 hr 08/09/22 08/09/22 08/10/22 12:00 16:21 05:45 WBC 14.12 H RBC 3.08 L Hgb 10.4 L D Hct 29.1 L MCV 95 MCH 33.8 H MCHC 35.7 RDW 12.3 Plt Count 207 MPV 9.2 Sodium Cancelled 124 L Potassium Cancelled 4.9 D Chloride Cancelled 92 L Carbon Dioxide Cancelled 24.8 Anion Gap Cancelled 7.2 BUN Cancelled 27 H Creatinine Cancelled 1.4 H Est GFR (CKD-EPI 2020) Cancelled 71.98 Glucose Cancelled 116 H Calcium Cancelled 7.6 L Review of Systems All systems reviewed & are unremarkable except as noted in HPI and below Time spent with patient Time spent in Critical Care: 35 Time spent in Critical care included: Chart review, Documenting critically ill care, Time at immediate bedside and Discussing critically ill care with other medical staff Multi-Disciplinary Checklist Lines/Tubes CENTRAL LINE: no ARTERIAL LINE: no SWANSON: yes, Swanson #: 1 Note: discontinuing today ENDOTRACHEAL TUBE: no ICU Maintenance GLUCOSE 140-180mg/dL: yes NUTRITION AT GOAL: yes PRESSURE ULCER: no RESTRAINTS: no ANTIBIOTICS(if yes, consider Stewardship): No Social Issues FAMILY UPDATED: no, Reason/Intervention: patient able to do this PT/OT: no, Reason/Intervention: will be ordered today GOALS/DISPOSITION/ESTIMATOR AND DRAFTER SUPERVISOR: yes CODE STATUS: Full Prophylaxis DVT PROPHYLAXIS: yes GI PROPHYLAXIS: yes, Indication: pancreatitis
[2022-08-10 07:01] LABS: Magnesium 2.3 mg/dL (1.8-2.4); Triglyceride 440 mg/dL (<150)
[2022-08-10 07:13] LABS: ALT 67 U/L (16-63); AST 108 U/L (15-37); Albumin 2.7 g/dL (3.4-5.0); Alkaline Phosphatase 111 U/L (46-116); Anion Gap 6.4 mmol/L (3-11); BUN 20 mg/dL (7-18); CO2 27.6 mmol/L (21.0-32.0); CREATININE 1.1 mg/dL (0.70-1.30); Calcium 7.8 mg/dL (8.5-10.1); Chloride 96 mmol/L (98-107); Estimated GFR 96.14 (mL/min/1.73m2); Glucose 118 mg/dL (74-106); LDL CHOLESTEROL 37 mg/dL (<100); Potassium 3.4 mmol/L (3.5-5.1); Sodium 130 mmol/L (136-145); Total Protein 6.4 g/dL (6.4-8.2)
[2022-08-10] MEDS: Albuterol 2.5 MG/3 ML INH SOLN VIAL UPD (07:54)
[2022-08-10] MEDS: Gemfibrozil 600 MG TAB PO (07:56)
--- NOTE | 2022-08-10 08:59 | PDOC.CMPRO ---
- If Service Date Differs Date of service: 08/10/22 Time of Service: 09:00 Care Management Progress Note S/O: Matthew was resting in bed in the ICU when CM met with him. He was pleasant and cooperative and interacted well with CM. Matthew stated that he is feeling a lot better but still has pain in his abdomen. All of his labs are improving and he will likely be transitioned to the Med-Surg unit later today. Matthew stated that he would like to go home as soon as possible as he is missing work and has no income other than his job. He also has a dog that is alone in his apartment. His mother has been letting the dog out twice a day and feeding him since Matthew has been hospitalized. CM discussed the possibility of going to an inpatient program for substance use with Matthew. He stated that he wouldn't mind but he cannot afford to miss any more work. He shared that he has tried to quit several times in the past and has never made it through a day. He also shared that his father is an alcoholic and gets really nasty when he drinks. Matthew asked CM if it would be possible to get something for his anxiety when he is discharged. CM will convey the request to his provider. A: 22 year old male admitted to [facility] 08/07/22 for Acute Pancreatitis P: Matthew will be discharged home when medically cleared by provider. He will follow up with his diving coach and other community supports. Matthew has a car in the parking lot at [facility] and will drive himself home. CM continues to follow.
--- NOTE | 2022-08-10 09:32 | IN_ITS ---
Date of service: 08/10/22 Time of Service: 09:32 PT Notes Visit Reasons: Acute Pancreatitis Physical Therapy Inpatient Initial Evaluation Date: 08/10/2022 Referring Doctor: Ron Degroot MD PT Orders: PT CONSULT: Limited ability Precautions: Fall. Standard. Activity as tolerated. Patient Profile/Admitting Diagnosis: Matthew is a 22-year-old male patient who resented to the ED on 08/07/2022 due nausea, vomitting, and generalized weakness. Patient is diagnosed with acute pancreatitis, transaminitis, and ETOH withrawal. PMHX: All Active Problems?(Updated 08/07/22 @ 08:20 by Edin Kauffman MD) Alcohol withdrawal (Acute) Acute pancreatitis (Acute) Transaminitis (Acute) Tinnitus, bilateral (Acute) Genitofemoral neuralgia (Chronic) Medical History? Allergic rhinitis Asthma, mild intermittent Mood disorder Social History/Home Situation: Lives in a private home alone. Independent with all aspects of ADLs prior to admission. Works in a [employer] locally. Equipment Owned/DME: None Subjective: Happy to have finally gotten out of his room as he has been getting restless. Reported low back pain with ambulation. Reported some chest tightness that went across his low chest area and resolved with rest. Objective: General Observation: Seated at edge of bed. In NAD. Telemetry monitoring in place. L IV access through L UE. Mental Status: Alert and oriented as to person, place, time, and purpose. Able to pay attention with effort, focus, and respond appropriately. Pain: 4-5/10 pain across low chest area that resolved with rest Vital Signs: WNL as closely monitored via tele ROM: Right Upper Extremity: Shoulder Flexion WFL. Shoulder abduction WFL. Elbow flexion WFL. Wrist flexion WFL. Functional opening and closing of hand WFL. Left Upper Extremity: Shoulder Flexion WFL. Shoulder abduction WFL. Elbow flexion WFL. Wrist flexion WFL. Functional opening and closing of hand WFL. Right Lower Extremity: Hip flexion WFL. Hip abduction WFL. Knee flexion WFL. Ankle dorsiflexion WFL. Ankle plantarflexion WFL. Left Lower Extremity: Hip flexion WFL. Hip abduction WFL. Knee flexion WFL. Ankle dorsiflexion WFL. Ankle plantarflexion WFL. Strength: Right Upper Extremity: Shoulder flexors 5/5. Shoulder abductors 5/5. Elbow flexors 5/5. Elbow extensors 5/5. Seed Corn Manager Production strong. Left Upper Extremity: Shoulder flexors 5/5. Shoulder abductors 5/5. Elbow flexors 5/5. Elbow extensors 5/5. Seed Corn Manager Production strong. Right Lower Extremity: Hip flexors 4/5. Hip abductors 4/5. Knee flexors 5/5. Knee extensors 5/5. Ankle dorsiflexors 5/5. Ankle plantarflexors 5/5. Left Lower Extremity: Hip flexors 4/5. Hip abductors 4/5. Knee flexors 5/5. Knee extensors 5/5. Ankle dorsiflexors 5/5. Ankle plantarflexors 5/5. Bed Mobility/Transfers: Rolling independent Supine to sit independent Sit to supine independent Sit to stand independent Stand to sit independent Bed to bedside commode independent Bedside commode to bed independent Bed to reclining chair independent Reclining chair to bed independent Gait: Instructed patient with level surface ambulation of 400 feet x 2 requiring supervision, no assistive device needed. 2-3 standing rests needed to recover HR. Mild ataxia noted, mild path deviation noted but no LOB. Did report some tightness across lower chest area and low back area that resolved with rest. Nurse aware. Mild shortness of breath resolved with rest. Balance: Static Sitting: Normal Dynamic Sitting: Normal Static Standing: Normal Dynamic Standing: Good Special Tests: Mobility Limitations Standardized Measure [facility] AM-PAC 6 clicks Basic Mobility Inpatient Short Form: Raw Score: 23 CMS Score: 11% deficit 30-second chair rise score: 15 which signifies good B LE strength and low fall risk 4-stage Balance test: able to maintain 10 seconds with feet together, semi- tandem, and full tandem stance. Unable with one-legged stane. Informed Consent/Education: Patient was instructed in purpose of PT consult and plan of care. Agreeable to proceed with established PT POC to achieve personal goals. Assessment: Matthew is a 22-year-old male patient who resented to the ED on 08/07/2022 due nausea, vomitting, and generalized weakness. Patient is diagnosed with acute pancreatitis, transaminitis, and ETOH withrawal. Patient may be independent inside his room Patient presents with clinical signs and symptoms consistent with current/admitting diagnoses that have resulted to mobility limitations, gait instability, generalized weakness, and overall ADL decline as demonstrated by the following impairment level findings: 1. Impaired activity tolerance 2. Shortness of breath Impairments are contributing to the following functional limitations: 1. Increased completion time for mobility ADL performance 2. At risk for falls Patient is assessed as a 86623 moderate complexity based on the following: History: 22-year-old male with past medical history as indicated above Examination: Demonstrable impairment in strength, balance, and mobility level with underlying impairments and functional limitations as exhibited above as well as deficit score of 11% utilizing the [facility] Mobility Inpatient Short Form Presentation: Evolving Decision Makin moderate complexity Goals: 1. Independent gait on level surface with no asssitive device without path deviation, ataxia, report of pain nor dyspnea, and with HR less than 120 bpm 2. Independent stair negotiation without holding onto rails for at least 5 steps without report of pain nor dyspnea 3. Independent with home exercise program Plan of Care/Treatment Plan: Will plan to see patient for 1-2 more sessions to re-establish independent long distance ambulation without assistive device with WNL HR, HEP instruction, and balance retraining. DISCHARGE RECOMMENDATIONS: [X] Home with no services. Home when medically cleared by hospitalist. [] Home with services [specify] [] Home with outpatient PT [] [] SNF for continued rehabilitation [] [] Compounding And Finishing Supervisor Care [] [] SNF versus LTC based on ability to participate and progress [] TREATMENT CODE/TIME: 01640 x 20 minutes, 30872 x 16 minutes beginning at 9:32 AM. Thank you for the opportunity to participate in the care of this patient. Lena Moore PT, DPT, CLT [facility] [place], [place]
[2022-08-10] MEDS: Pantoprazole 40 MG VIAL IVP (09:49)
[2022-08-10] MEDS: Folic Acid 1 MG TAB PO (09:49)
[2022-08-10] MEDS: Gabapentin 300 MG CAP PO ×2 (09:49→13:55)
[2022-08-10] MEDS: Gabapentin 100 MG CAP PO ×2 (09:49→13:55)
[2022-08-10] MEDS: Thiamine 100 MG TAB PO (09:50)
[2022-08-10] MEDS: Normal Saline Flush 10 ML SYR IVP (09:51)
[2022-08-10] MEDS: LORazepam 0.5 MG TAB PO (10:14)
[2022-08-10] MEDS: Heparin 5,000 UNITS/ML VIAL 5000 UNITS SC (10:14)
[2022-08-10] MEDS: Acetaminophen 325 MG TAB 650 MG PO (10:14)
[2022-08-10] MEDS: Multivitamin TAB 1 TAB PO (10:15)
[2022-08-10] MEDS: Ondansetron 4 MG/2 ML VIAL IVP (10:53)
--- NOTE | 2022-08-10 12:50 | PT.INTREAT ---
Date of service: 08/10/22 Time of Service: 12:20 PT Notes Visit Reasons: Acute Pancreatitis Inpatient Physical Therapy Treatment Note [facility] Date: 08/10/2022 PRECAUTIONS: Fall, activity as tolerated, ETOH withdrawal SUBJECTIVE: Matthew is pleasant and agreeable to participating in PT. He reports that he is feeling better today, although did experience n/v, which he attributes to a new medication. He states that he has been transferring and ambulating within his room independently without an AD, without difficulty. OBJECTIVE: PAIN: Patient c/o flank pain BED MOBILITY/TRANSFERS Rolling L/R: [] Supine-sit: I Sit-supine: I Sit-stand: I Stand-sit: I Bed-Chair: I Chair-bed: I GAIT Assistive Device: No AD Weight bearing: Full Assist: I Distance: 800' Deviation: Gait without ataxia, SOB VITALS: Patient HR noted to be as high as 138 bpm with gait training STAIRS: Up/down 3x4 and 2x6 without rails and with a step-over pattern independently. ASSESSMENT: Patient tolerated session with c/o SOB and flank pain. He demonstrates independence with all bed mobility, transfers, and ambulation without an AD at this time. PLAN: Patient at independent functional level at this time. TREATMENT CODE/TIME: 20 minutes; 54358 (12:20)
--- NOTE | 2022-08-10 14:02 | W.PM.DS.N ---
Date of service: 08/10/22 Time of Service: 14:02 DS: Diagnosis Discharge Diagnosis (1) High blood triglycerides: Status: Acute Asessment and Plan: Gemfibrozil initiated and then placed on a glucose and insulin infusion. Triglyceride level initially was 2444. It improved to 440. He was given a low fat diet and encouraged to continue this at home. Cont Gemfibrozil. A1c 5.7. (2) Acute pancreatitis: Status: Acute Asessment and Plan: Resolved. Tolerating diet. Likely a dual etiology of alcohol abuse and hypertriglyceridemia. Triglycerides improved; cont Gemfibrozil. Alcohol cessation stressed. (3) Alcohol withdrawal: Status: Acute Asessment and Plan: Long-term alcohol abuse disorder. Began drinking Etoh at age 10. Now through withdrawal. Community support, sobriety personal health coach. (4) [place] (acute kidney injury): Status: Acute Asessment and Plan: Resolved. (5) Hyponatremia: Status: Acute Asessment and Plan: Improved from a Na of 124 to 130. Likely related to alcohol intake. (6) Hyperkalemia: Status: Acute Asessment and Plan: NOrmalized after glucose and insulin administration that was given for his elevated triglycerides. (7) Hypocalcemia: Status: Acute Asessment and Plan: Corrects to normal when low albumin taken into account. (8) Transaminitis: Status: Acute Asessment and Plan: D/T alcohol intake. Alcoholic hepatitis. Improveing. (9) Hypercholesteremia: Status: Acute Asessment and Plan: On gemfibrozil but not a statin. Follow with PCP. Discharge Plan Disposition Patient Disposition: Home Condition: Fair Discharge Details Reason For Visit: Acute Pancreatitis, Alcohol withdrawal Admit Date/Time: 08/07/22 03:50 Admit Provider: Edin Kauffman Attending Provider: Edin Kauffman Primary Care Provider: Estu[facility] Course: 22-year-old male presents emergency department with acute onset of severe diffuse abdominal pain nausea and vomiting began around 5 PM August 06, 2022.? He had no hematemesis, melena or hematochezia.? Patient has a past history of hypertension and generalized anxiety disorder as well as alcohol abuse.? Patient drinks on a daily basis 3 to 5 12 ounce beers a day and occasionally binges on the weekends.? He has been in AA in the past but has had no previous history of pancreatitis.? There is a family history of alcoholism including his father and multiple family members on his father side.? Patient denies use of other recreational drugs besides alcohol.? He does smoke a pack per day. ? Work-up in the emergency department was consistent with acute pancreatitis.? White cell count was elevated at 21,000, he was polycythemic hemoglobin 18.1 g hematocrit 50% and his lipase was elevated at 3293.? He had a transaminitis with an AST of 331, ALT 176, alkaline phosphatase 257 with a normal total bilirubin of 0.6.? Calcium was low at 7.6 blood sugar was elevated 171.? Magnesium was low at 1.6.? CT imaging of his abdomen pelvis was performed and showed diffuse peripancreatic fluid indicative of acute pancreatitis.? No pseudocyst formation was seen.? He has fatty liver infiltration.? Gallbladder and bile ducts appeared normal with no calcified stones and no ductal dilatation. Treatment in the emergency department included a bolus of Ringer's lactate and he was given narcotic analgesics for his pain including Dilaudid 1 mg IV.? Patient continues to have exquisite abdominal pain and nausea with dry heaves.? Patient states his last bowel movement was last night. He did meet with a high school football coach that he can follow up with for further support once discharged. On the day after admission he was transfered to the ICU d/t concerns about developing an infectious process, cold extremities and difficulty obtaining a blood pressure reading. His wbc count had declined but then elevated again. A repeat CT scan showed severe pancreatitis. The scan was w/o contrast d/t his worsenend renal function so it could not be determined definitively if a peripancreatic abscess / infection had developed. See Diagnosis PCP appt in 1-2 weeks. Home Meds and New Rx's Prescriptions: New multivitamin Tablet 1 tab PO DAILY Qty: 0 0RF gemfibrozil 600 mg Tablet 600 mg PO BID@0730,1630 Qty: 60 0RF thiamine mononitrate (vit B1) [Vitamin B-1 (mononitrate)] 100 mg Tablet 100 mg PO QAM Qty: 0 0RF clonazepam 0.5 mg tablet See Rx Instructions .ROUTE .COMPLEX Qty: 22 0RF Rx Instructions: 3 tabs twice a day for 2 days, then 2 tab twice daily for 2 days, then 1 tab twice daily for 2 days Continued gabapentin 300 mg capsule 1,400 mg PO DAILY clonidine HCl 0.1 mg tablet 0.1 mg PO QHS mirtazapine 15 mg tablet 15 mg PO HS Label Comments: TAKE 1 TABLET BY MOUTH EVERY DAY AT BEDTIME Discharge Instructions Additional Instructions: Contact high school football coach upon discharge to arrive follow up. Activity:: Activity as Tolerated Equipment/Supplies:: No Equipment Needed Diet:: Low fat diet Discharge Orders Discharge Orders: Discharge Order (Routine); Ordered 08/10/22 Ordered By: Ron Degroot DS: Summary Time Spent with Patient providing and/or coordinating discharge services: Greater than 30 minutes Status at Discharge Functional status at discharge: independent ambulation Overall status at discharge: patient is progressing back to baseline Mental Status: mental status grossly normal Speech and Movement: speech and movement normal Mood: anxious mood Affect: anxious affect Exam Narrative Exam Narrative: Matthew is alert, interactive and cooperative. Const General: no acute distress Nutritional Appearance: overweight Orientation: oriented x3 Eyes General: appearance normal, both eyes and all related structures Sclera: sclerae normal Resp Effort & Inspection: normal respiratory effort Auscultation: clear to auscultation bilaterally Cardio Rate: regular rate Rhythm: regular rhythm Heart Sounds: S1 normal and S2 normal GI Inspection: distended Palpation: soft, no guarding and nontender Auscultation: hypoactive bowel sounds Back/Spine/Pelvis Back: other (describes discomfort in both flank areas) Skin General skin exam: no rashes or lesions noted Neuro General: no focal motor deficits Cranial Nerves: facial strength normal Speech: speech normal Extrem General: no pedal edema Psych Appearance: grossly normal Mental Status: mental status grossly normal Speech and Movement: speech and movement normal Mood: anxious mood Affect: anxious affect DS: Data Vitals/I&O Vitals and I&O: Vital Signs Temperature 36.8 C 08/10/22 09:15 Temperature Source Temporal Artery Scan 08/10/22 09:15 Pulse 105 H 08/10/22 12:37 Pulse Rhythm Regular 08/08/22 08:15 Pulse 130 H 08/10/22 12:31 Respiratory Rate 22 08/10/22 12:00 Respiratory Effort 08/10/22 09:15 Respiratory Depth Normal 08/10/22 09:15 Respiratory Pattern Normal 08/10/22 09:15 Blood Pressure 135/88 01/06/23 12:37 Blood Pressure Mean 97 08/10/22 12:37 Blood Pressure Position Supine 08/10/22 05:38 Pulse Oximetry 95 08/10/22 09:15 Oxygen Delivery Method Room Air 08/10/22 09:15 Oxygen Flow Rate 0 08/10/22 09:15 Pain Level 0 08/10/22 05:38 Comment 08/07/22 23:11 Intake & Output 08/09/22 08/10/22 08/10/22 23:59 11:59 23:59 Intake Total 1313.912 / 3252.757 407.047 / 657.047 250 / 657.047 Output Total 1725 / 1925 4050 / 4050 Balance -411.088 / 1327.757 -3642.953 / -3392.953 250 / -3392.953 Intake: IV 393.912 / 2272.757 107.047 / 107.047 Oral 920 / 980 300 / 550 250 / 550 Output: Urine 1725 / 1925 4050 / 4050 Other: Urine Color Yellow Yellow Urine Appearance Clear Clear Comment Ferris in place, patent. Ferris d/c'ed this morning. Stool Size Moderate Stool Characteristics Liquid Data Completed and Pending Labs on day of discharge: Labs from last 24 hours 08/10/22 08/10/22 08/10/22 05:45 05:45 05:45 WBC 14.12 H RBC 3.08 L Hgb 10.4 L D Hct 29.1 L MCV 95 MCH 33.8 H MCHC 35.7 RDW 12.3 Plt Count 207 MPV 9.2 Sodium 130 L Potassium 3.4 L D Chloride 96 L Carbon Dioxide 27.6 Anion Gap 6.4 BUN 20 H Creatinine 1.1 Est GFR (CKD-EPI 2020) 96.14 Glucose 118 H Calcium 7.8 L Magnesium 2.3 Total Bilirubin 1.0 AST 108 H ALT 67 H Alkaline Phosphatase 111 Total Protein 6.4 Albumin 2.7 L Triglycerides 440 H LDL Cholesterol Direct 37 08/09/22 16:21 WBC RBC Hgb Hct MCV MCH MCHC RDW Plt Count MPV Sodium 124 L Potassium 4.9 D Chloride 92 L Carbon Dioxide 24.8 Anion Gap 7.2 BUN 27 H Creatinine 1.4 H Est GFR (CKD-EPI 2020) 71.98 Glucose 116 H Calcium 7.6 L Magnesium Total Bilirubin AST ALT Alkaline Phosphatase Total Protein Albumin Triglycerides LDL Cholesterol Direct PFSH All Active Problems Hypertriglyceridemia (Acute) Hypercholesteremia (Acute) Hypocalcemia (Acute) Hyperkalemia (Acute) Hyponatremia (Acute) [place] (acute kidney injury) (Acute) High blood triglycerides (Acute) Alcohol withdrawal (Acute) Acute pancreatitis (Acute) Transaminitis (Acute) Tinnitus, bilateral (Acute) Genitofemoral neuralgia (Chronic) Medical History Allergic rhinitis Asthma, mild intermittent Mood disorder Surgical History H/O adenoidectomy Family History Father Alcohol use disorder Social History Smoking/Tobacco Use Status: Current every day Smoking risk assessment performed?: Yes Alcohol Intake: current Alcohol Intake frequency: a few times a week Drug use: Daily Substance use type: marijuana and prescription drug Do you feel safe at home: Yes Do you feel safe in your relationship?: Yes Additional Social history: Lives alone with 2 dogs. Time Spent with Patient Time Spent with Patient: 45-69 minutes Time was spent: preparing to see the patient(eg.review tests), ordering medications,tests, procedures, indepentently interpreting results and counseling the patient
[2022-08-10] MEDS: Bacitracin 1 PACKET (14:06)
--- NOTE | 2022-08-10 15:25 | PDOC.CMDIS ---
- If Service Date Differs Date of service: 08/10/22 Time of Service: 15:25 LACE Index Scoring Tool - Questions: Length of Stay (in days): 3 Acuity (Admit via E.D.?): Yes Comorbidities: Liver or Renal Disease E.D. Visits: 2 - Answers: Total Score: 13 Risk of Readmission: High Risk Care Management Discharge Reason for Hospitalization: Acute alcoholic pancreatitis Discharge Plan: Matthew will be discharged home with no new services. 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 Matthew has a car in the parking lot at [facility] and will drive himself home. Patient/Family Education Needs: Review of discharge instructions, limitations, follow up plan, and discuss Ask Me Three
== END 2022-08-10 15:10 | disposition home or self-care (01) | DRG 439 ==
LOC: ER 04:15 → MS 04:23 → ICU 08-08 08:30
PROVIDERS: Family Medicine; Nurse Practitioner Acute Care; Student in an Organized Health Care Education/Training Program; Admitting Provider Internal Medicine; Emergency Provider Student in an Organized Health Care Education/Training Program; PCP Family Medicine; Visit Provider Internal Medicine
DX: K85.80 Other acute pancreatitis without necrosis or infection (principal); E87.1 Hypo-osmolality and hyponatremia; N17.9 Acute kidney failure, unspecified; F10.139 Alcohol abuse with withdrawal, unspecified; R74.01 Elevation of levels of liver transaminase levels; E78.1 Pure hyperglyceridemia; E87.5 Hyperkalemia; E83.51 Hypocalcemia; E78.00 Pure hypercholesterolemia, unspecified; I10 Essential (primary) hypertension; F41.1 Generalized anxiety disorder; F17.210 Nicotine dependence, cigarettes, uncomplicated; E66.9 Obesity, unspecified; Z68.30 Body mass index [BMI] 30.0-30.9, adult; Z78.1 Physical restraint status
CPT/HCPCS: 36415; 76942; 80048; 80053; 80061; 80076; 80307; 83690; 83721; 85027; 87635; 96361; 96374; 96375; 97162; 97530; 99285; 74176; 74177; 76700; 81003; 81015; 83036; 83615; 83735; 84100; 84132; 84443; 84478; 85025; 87086; 94640; 99222; 99233; 99239; 99291; J1170; J1644; J1885; J1941; J2060; J2405; J2543; J2560; J3475; J3480; J3490; J7613

== ENCOUNTER 2022-08-17 16:16 | Outpatient (REF) | payer MEDICAID, SELFPAY ==
[2022-08-17 18:22] LABS: HCT 35.3 % (40.0-50.0); HGB 11.8 g/dL (13.5-17.5); MCH 32.7 pg (27.0-33.0); MCHC 33.4 % (32.0-36.0); MCV 98 fL (80-95); MPV 9.1 fL (8.0-11.0); RBC 3.61 10^6/uL (4.36-5.78); RDW 12.9 % (11.8-14.1); RDW-SD 45.7 fL; WBC 12.25 10^3/uL (4.4-10.8)
[2022-08-17 18:29] LABS: ALT 36 U/L (16-63); AST 55 U/L (15-37); Albumin 3.4 g/dL (3.4-5.0); Alkaline Phosphatase 137 U/L (46-116); Anion Gap 8.8 mmol/L (3-11); BUN 10 mg/dL (7-18); Bilirubin, Total 0.3 mg/dL (0.2-1.0); CO2 26.2 mmol/L (21.0-32.0); CREATININE 0.7 mg/dL (0.70-1.30); Calcium 9.5 mg/dL (8.5-10.1); Chloride 99 mmol/L (98-107); Estimated GFR 131.95 (mL/min/1.73m2); Glucose 142 mg/dL (74-106); Potassium 4.9 mmol/L (3.5-5.1); Sodium 134 mmol/L (136-145); Total Protein 8.1 g/dL (6.4-8.2)
[2022-08-17 18:41] LABS: Platelet Count 1053 10^3/uL (130-400)
== END 2022-08-17 16:17 | disposition home or self-care (01) ==
LOC: NCHCN 16:16
PROVIDERS: PCP Family Medicine; Visit Provider Nurse Practitioner Family
DX: K85.20 Alcohol induced acute pancreatitis without necrosis or infection (principal); K29.20 Alcoholic gastritis without bleeding; F10.10 Alcohol abuse, uncomplicated; E78.1 Pure hyperglyceridemia; F41.1 Generalized anxiety disorder; F41.0 Panic disorder [episodic paroxysmal anxiety]; F32.89 Other specified depressive episodes
CPT/HCPCS: 80053; 85027

== ENCOUNTER 2022-08-24 18:42 | Outpatient (REF) | payer MEDICAID, SELFPAY ==
[2022-08-24 19:30] LABS: HGB 12.3 g/dL (13.5-17.5); MCH 32.2 pg (27.0-33.0); MCHC 33.2 % (32.0-36.0); MCV 97 fL (80-95); MPV 9.3 fL (8.0-11.0); RBC 3.82 10^6/uL (4.36-5.78); RDW-SD 45.4 fL
[2022-08-24 20:01] LABS: Platelet Count 981 10^3/uL (130-400)
== END 2022-08-24 18:43 | disposition home or self-care (01) ==
LOC: NCHCN 18:42
PROVIDERS: PCP Family Medicine; Visit Provider Nurse Practitioner Family
DX: D47.3 Essential (hemorrhagic) thrombocythemia (principal); K85.20 Alcohol induced acute pancreatitis without necrosis or infection; F10.10 Alcohol abuse, uncomplicated; F41.0 Panic disorder [episodic paroxysmal anxiety]
CPT/HCPCS: 85027

== ENCOUNTER 2022-08-31 13:56 | Outpatient (CLI) | payer MEDICAID, SELFPAY ==
--- NOTE | 2022-08-31 15:15 | DI.CT_ITS ---
Exam(s) CT ABDOMEN PELVIS W EXAM: CT ABDOMEN PELVIS W CLINICAL HISTORY: ALCOHOL INDUCED PANCREATITIS K85.20 TECHNIQUE: Imaging Protocol: Axial computed tomography images with coronal and sagittal reformatted images were created and reviewed CONTRAST MATERIAL: Intravenous: Omnipaque 350 Contrast volume:100 mL Oral: Yes COMPARISON: CT CT ABDOMEN PELVIS WO from 08/08/2022 FINDINGS: ABDOMEN: Lung Bases: Normal where visualized. Liver: There is appear to be slight decreased attenuation of the liver suggesting fatty infiltration. No measurable mass. Portal, Superior Mesenteric, and Splenic Veins: Unremarkable. Gallbladder and Biliary Tract: No radiodense calculus or dilation. Pancreas: The pancreas is heterogeneous and enlarged. Peripancreatic fluid collections are present. Findings are consistent with acute pancreatitis. Spleen: Normal. Adrenals: No masses seen. Kidneys: Normal size, contour and axis. No radiodense stones or obstructive uropathy. No masses seen. Abdominal Aorta: Abdominal portion non-dilated. Bowel: No obstruction or bowel wall thickening. No evidence of appendicitis. Peritoneal Cavity: There is fluid seen around the pancreas including loculated fluid extending into t he mesentery and along the left pericolic gutter. There is fluid seen in the right anterior pararena l space fascia. No free air. Lymph Nodes: Within normal limits. Bones: Within normal limits for the patient's age. Soft Tissues: Unremarkable. PELVIS: Bladder: Symmetric distention, no gross wall thickening. Reproductive Organs: Unremarkable as visualized. Lymph Nodes: Within normal limits. Bones: Within normal limits for the patient's age. IMPRESSION: 1. Findings of acute pancreatitis with loculated fluid around the pancreas extending into the left pe ricolic gutter in the mesentery. 2. No evidence of biliary ductal dilatation. RADIATION DOSE DELIVERED: 816.9mGy.cm Total DLP DATA REPOSITORY: All CT scans at this facility are submitted to the National Radiology Data Registry (NRDR) Dose Index Registry (DIR) with the [employer] (A[employer]). RADIATION OPTIMIZATION: All CT scans at this facility use at least one of these dose optimization te chniques: automated exposure control; mA and/or kV adjustment per patient size (includes targeted exa ms where dose is matched to clinical indication); or iterative reconstruction.
[2022-08-31] MEDS: Omnipaque 350 MG/ML 100 ML BTL IJ (15:53)
--- NOTE | 2022-08-31 16:38 | DI.VRAD_ITS ---
PROCEDURE INFORMATION: Exam: CT Abdomen And Pelvis With Contrast Exam date and time: 08/31/2022 3:17 PM Age: 22 years old Clinical indication: Other: Alcohol induced pancreatitis TECHNIQUE: Imaging protocol: Computed tomography of the abdomen and pelvis with contrast. Radiation optimization: All CT scans at this facility use at least one of these dose optimization techniques: automated exposure control; mA and/or kV adjustment per patient size (includes targeted exams where dose is matched to clinical indication); or iterative reconstruction. Contrast material: OMNIPAQUE 350; Contrast volume: 100 ml; Contrast route: INTRAVENOUS (IV); Other contrast: Oral, omnipaque 350, 950 ml; COMPARISON: CT ABDOMEN PELVIS WO 11/03/2022 10:49 FINDINGS: Liver: Decreased attenuation of the liver consistent with fatty infiltration. Gallbladder and bile ducts: Normal. No calcified stones. No ductal dilation. Pancreas: Normal. No ductal dilation. Spleen: Normal. No splenomegaly. Adrenal glands: Normal. No mass. Kidneys and ureters: Normal. No hydronephrosis. Stomach and bowel: Oral contrast seen in the stomach, small bowel and throughout the colon. Appendix: No evidence of appendicitis. Intraperitoneal space: Loculated fluid around the pancreas extending into the mesentery and along the left pericolic gutter. Retroperitoneal space: Infiltration and fluid in the involving the right anterior perirenal fascia. Vasculature: Unremarkable. No abdominal aortic aneurysm. Lymph nodes: Unremarkable. No enlarged lymph nodes. Urinary bladder: Unremarkable as visualized. Reproductive: Unremarkable as visualized. Bones/joints: Unremarkable. No acute fracture. Soft tissues: Fat distension of the left inguinal canal. IMPRESSION: 1. Acute pancreatitis with a loculated fluid around the pancreas and extending into the retroperitoneal spaces and mesenteric root spaces. 2. Decreased attenuation of the liver consistent with fatty infiltration. Dictated and Authenticated by: Martha Gillespie MD. Ordering:CAMRON Marion MD
== END 2022-08-31 14:16 ==
PROVIDERS: PCP Family Medicine; Visit Provider Nurse Practitioner Family
DX: K85.20 Alcohol induced acute pancreatitis without necrosis or infection (principal); K76.0 Fatty (change of) liver, not elsewhere classified; K86.89 Other specified diseases of pancreas
CPT/HCPCS: 74177; J3490

== ENCOUNTER 2022-08-31 17:09 | Emergency (ER) | payer MEDICAID, SELFPAY ==
[2022-08-31 17:34] VITALS: BP 144/85; PULSE 93; RESP 18; TEMP 37.1; O2SAT 97
--- NOTE | 2022-08-31 18:06 | W.ED.GENAD ---
Discharge Plan Disposition Patient Disposition: Home Condition: Stable Discharge Details Clinical Impression: Acute on chronic pancreatitis Primary Care Provider: Estuardo Graham ED Provider: Madhuri Leal Home Meds and New Rx's Prescriptions: New clonazepam 0.5 mg tablet 0.5 mg PO QHS PRN (Reason: anxiety) Qty: 3 0RF Rx Instructions: administer 30 minutes before bedtime No Action gabapentin 300 mg capsule 1,400 mg PO DAILY clonidine HCl 0.1 mg tablet 0.1 mg PO QHS celecoxib 200 mg capsule 200 mg PO 2XD Label Comments: TAKE ONE CAPSULE BY MOUTH TWICE DAILY WITH MEALS IN PLACE OF IBUPROFEN. DO NOT USE IBUPROPHEN OR ALEVE WITH THIS. MAY TAKE TYLENOL citalopram 40 mg tablet 40 mg PO 1XD Label Comments: TAKE 1 TABLET BY MOUTH EVERY DAY mirtazapine 15 mg tablet 15 mg PO HS Label Comments: TAKE 1 TABLET BY MOUTH EVERY DAY AT BEDTIME gemfibrozil 600 mg Tablet 600 mg PO BID@0730,1630 Qty: 60 0RF thiamine mononitrate (vit B1) [Vitamin B-1 (mononitrate)] 100 mg Tablet 100 mg PO QAM Qty: 0 0RF Label Comments: PT states that he stopped taking it this year. clonazepam 0.5 mg tablet See Rx Instructions .ROUTE .COMPLEX Qty: 22 0RF Rx Instructions: 3 tabs twice a day for 2 days, then 2 tab twice daily for 2 days, then 1 tab twice daily for 2 days Discharge Instructions Instructions: Pancreatitis (ED) Additional Instructions: The CT was reviewed from [facility] from the and your labs seem much improved. Your liver enzymes are slightly more elevated. However at this time there is no evidence for severe infection or worsening pancreatitis. Your results are similar to your previous test. Take the clonazepam as prescribed. Continue taking your previously prescribed medications including the Protonix or pantoprazole. You were given a dose of clonazepam to go. you may take 1 prior to bedtime as needed for anxiety. Follow up with primary care provider in 3-5 days. Return to ED sooner if any worsening pain not relieved by medication, nausea vomiting, fever, chills, diarrhea or concerns. Increase oral fluids. Please take Tylenol or Ibuprofen with food every 4-6 hours as needed for pain and swelling. [place] [facility] phone number [phone] [facility], You may call Ned Johnson at [phone] Stand Alone Forms: Work Release Referrals: Estuardo Graham [Primary Care Provider] - 5 days Discharge Data Discharge Date/Time-TO BE ENTERED AT DEPARTURE: 08/31/22 20:38 Medical Decision Making 22-year-old male presents to the ER with a chief complaint of upper abdominal pain, after presenting to his PCPs office prior to arrival she was concerned due to his CT results which were done here today showing worsening of his acute pancreatitis. Patient was admitted at [facility] [place] was released approximately a week ago. He reports some upper abdominal pain but denies any nausea vomiting fever chills diarrhea. He has not drank any alcohol since 06 August per patient reports. He does not appear to be under the influence at this time. He is alert and oriented x4. Patient reports he originally presented to his PCP for a follow-up appointment and to get a work note stating that he could go back to work. 1820: Work-up ordered to rule out infectious process. Including lipase and lactate, patient is telling the nurses that he will not agree to have blood work drawn or anything done unless he gets a Klonopin first because he is freaking the fuck out. I did discuss this with patient prior to him being brought into the room and he did endorse anxiety and not sleeping for the last 8 nights. 0.5 Clonazepam p.o. ordered. CBC shows no leukocytosis, platelets are 576, absolute neutrophils 0.79, lactate 1.9 CMP is pending at this time. Urinalysis within normal limits. BUN 24 creatinine 1.1, glucose 121 AST is 41 ALT 66 alk phos 145, lipase is 41 which is markedly improved from his previous results. CT results reviewed from [facility] [place]'s last CT on August 14 these are very similar to the CT result from today. Due to patient's overall well-appearing presentation and denying any vomiting fever diarrhea or severe pain I do feel it is appropriate to discharge patient home with follow-up with PCP. Patient was given a liter of normal saline here and instructed to continue his previously prescribed medications. Discussed strict return instructions he verbalized understanding. He remained hemodynamically stable alert and oriented throughout the entire stay. This text was generated using [email or web address] system, please disregard any oddities of phrase or misspellings. Medical Records Medical records reviewed: Yes I reviewed the patient's medical records. Imaging Data Radiologic Study: Imaging: CT Scan Radiologist's impression: CT abdomen pelvis from [facility] [place] [facility] on August 14, 2022 Pancreas results show no significant change from today's imaging. CT result/acute interstitial pancreatitis with acute pancreatitis fluid collections. Extensive peripancreatic inflammation and fluid collections have increased marginally however no overall major change. With a left pleural effusion. Lab Data Lab results reviewed: Yes I reviewed the patient's lab results. Labs: Laboratory Tests Range/Units 08/31/22 08/31/22 08/31/22 18:10 18:31 18:31 WBC (4.4-10.8) 10^3/uL RBC (4.36-5.78) 10^6/uL Hgb (13.5-17.5) g/dL Hct (40.0-50.0) % MCV (80-95) fL MCH (27.0-33.0) pg MCHC (32.0-36.0) % RDW (11.8-14.1) % Plt Count (130-400) 10^3/uL MPV (8.0-11.0) fL Immature Gran % Neutrophils % Lymphocytes % Monocytes % Eosinophils % Basophils % Nucleated RBC % (0.0-0.3) % Absolute Neutrophils (1.2-6.7) 10^3/uL Absolute Lymphocytes (1.2-3.4) 10^3/uL Absolute Monocytes (0.1-0.8) 10^3/uL Absolute Eosinophils (0.0-0.7) 10^3/uL Absolute Basophils (0.0-0.2) 10^3/uL VBG Lactate (0.6-1.4) mmol/L 1.9 H Sodium (136-145) mmol/L 138 Potassium (3.5-5.1) mmol/L 3.8 Chloride (98-107) mmol/L 99 Carbon Dioxide (21.0-32.0) mmol/L 26.8 Anion Gap (3-11) mmol/L 12.2 H BUN (7-18) mg/dL 24 H Creatinine (0.70-1.30) mg/dL 1.1 Est GFR (CKD-EPI 2020) (mL/min/1.73m2) 96.14 Glucose (74-106) mg/dL 121 H Calcium (8.5-10.1) mg/dL 10.5 H Magnesium (1.8-2.4) mg/dL 2.0 Total Bilirubin (0.2-1.0) mg/dL 0.5 AST (15-37) U/L 41 H ALT (16-63) U/L 66 H Alkaline Phosphatase (46-116) U/L 145 H Total Protein (6.4-8.2) g/dL 9.8 H Albumin (3.4-5.0) g/dL 5.3 H Lipase (73-393) U/L 41 Urine Color (Yellow) Yellow Urine Clarity (Clear) Clear Urine pH (5-8) 5.5 Ur Specific [place] (1.005-1.025) <= 1.005 Urine Protein (Negative) mg/dL Negative Urine Ketones (Negative) mg/dL Negative Urine Blood (Negative) Negative Urine Nitrite (Negative) Negative Urine Bilirubin (Negative) Negative Urine Urobilinogen (Up TO 0.2) EU/dL 0.2 Ur Leukocyte Esterase (Negative) Negative Urine Glucose (Negative) mg/dL Negative Range/Units 08/31/22 18:31 WBC (4.4-10.8) 10^3/uL 8.16 RBC (4.36-5.78) 10^6/uL 4.24 L Hgb (13.5-17.5) g/dL 13.5 Hct (40.0-50.0) % 41.2 MCV (80-95) fL 97 H MCH (27.0-33.0) pg 31.8 MCHC (32.0-36.0) % 32.8 RDW (11.8-14.1) % 12.3 Plt Count (130-400) 10^3/uL 576 H MPV (8.0-11.0) fL 9.1 Immature Gran % 0.4 Neutrophils % 54.5 Lymphocytes % 27.0 Monocytes % 7.1 Eosinophils % 9.7 Basophils % 1.3 Nucleated RBC % (0.0-0.3) % 0.0 Absolute Neutrophils (1.2-6.7) 10^3/uL 4.45 Absolute Lymphocytes (1.2-3.4) 10^3/uL 2.20 Absolute Monocytes (0.1-0.8) 10^3/uL 0.58 Absolute Eosinophils (0.0-0.7) 10^3/uL 0.79 H Absolute Basophils (0.0-0.2) 10^3/uL 0.11 VBG Lactate (0.6-1.4) mmol/L Sodium (136-145) mmol/L Potassium (3.5-5.1) mmol/L Chloride (98-107) mmol/L Carbon Dioxide (21.0-32.0) mmol/L Anion Gap (3-11) mmol/L BUN (7-18) mg/dL Creatinine (0.70-1.30) mg/dL Est GFR (CKD-EPI 2020) (mL/min/1.73m2) Glucose (74-106) mg/dL Calcium (8.5-10.1) mg/dL Magnesium (1.8-2.4) mg/dL Total Bilirubin (0.2-1.0) mg/dL AST (15-37) U/L ALT (16-63) U/L Alkaline Phosphatase (46-116) U/L Total Protein (6.4-8.2) g/dL Albumin (3.4-5.0) g/dL Lipase (73-393) U/L Urine Color (Yellow) Urine Clarity (Clear) Urine pH (5-8) Ur Specific [place] (1.005-1.025) Urine Protein (Negative) mg/dL Urine Ketones (Negative) mg/dL Urine Blood (Negative) Urine Nitrite (Negative) Urine Bilirubin (Negative) Urine Urobilinogen (Up TO 0.2) EU/dL Ur Leukocyte Esterase (Negative) Urine Glucose (Negative) mg/dL HPI General Mode of arrival: ambulatory. Date/Time Provider Initiated Documentation: 08/31/22 17:43. Limitations to Documentation: no limitations. Information obtained by: patient, RN notes reviewed and old records reviewed. HPI Narrative: 22-year-old male presents to the ER with a chief complaint of upper abdominal pain, after presenting to his PCPs office prior to arrival she was concerned due to his CT results which were done here today showing worsening of his acute pancreatitis. Patient was admitted at [facility] [place] was released approximately a week ago. He reports some upper abdominal pain but denies any nausea vomiting fever chills diarrhea. He has not drank any alcohol since 06 August per patient reports. He does not appear to be under the influence at this time. He is alert and oriented x4. Patient reports he originally presented to his PCP for a follow-up appointment and to get a work note stating that he could go back to work. With history of allergic rhinitis, mild intermittent asthma, mood disorder, pancreatitis. Related Data Home Medications Medication Instructions Recorded Confirmed clonidine HCl 0.1 mg tablet 0.1 mg PO QHS 02/19/22 08/31/22 gabapentin 300 mg capsule 1,400 mg PO DAILY 02/19/22 08/31/22 mirtazapine 15 mg tablet 15 mg PO HS 08/07/22 08/31/22 clonazepam 0.5 mg tablet See Rx Instructions .Route 08/10/22 08/31/22 .COMPLEX #22 tabs gemfibrozil 600 mg tablet 600 mg PO BID@0730,1630 #60 tabs 08/10/22 08/31/22 thiamine mononitrate (vit B1) 100 100 mg PO QAM #0 tabs 08/10/22 08/31/22 mg tablet (Vitamin B-1 (mononitrate)) celecoxib 200 mg capsule 200 mg PO 2XD 08/31/22 08/31/22 citalopram 40 mg tablet 40 mg PO 1XD 08/31/22 08/31/22 clonazepam 0.5 mg tablet 0.5 mg PO QHS PRN anxiety #3 tabs 08/31/22 Previous Rx's Medication Instructions Recorded clonazepam 0.5 mg tablet See Rx Instructions .Route 08/10/22 .COMPLEX #22 tabs gemfibrozil 600 mg tablet 600 mg PO BID@0730,1630 #60 tabs 08/10/22 thiamine mononitrate (vit B1) 100 100 mg PO QAM #0 tabs 08/10/22 mg tablet (Vitamin B-1 (mononitrate)) clonazepam 0.5 mg tablet 0.5 mg PO QHS PRN anxiety #3 tabs 08/31/22 Allergies Allergy/AdvReac Type Severity Reaction Status Date / Time No Known Allergies Allergy Verified 08/31/22 19:43 General Stated Complaint: Abd Prob HUONG: 3 Review of Systems All systems reviewed & are unremarkable except as noted in HPI and below Constitutional Constitutional: Denies fever(s) and Denies headache(s) ENT Ears, Nose, Mouth, and Throat: Denies headache(s) Cardiovascular Cardiovascular: Denies chest pain and Denies dyspnea Respiratory Respiratory: Denies dyspnea Gastrointestinal Gastrointestinal: Reports abdominal pain, Denies diarrhea, Denies nausea and Denies vomiting Neurologic Neurologic: Denies headache(s) PFSH All Active Problems (Updated 08/31/22 @ 19:34 by Madhuri Leal NP) Acute on chronic pancreatitis (Acute) Hypertriglyceridemia (Acute) Hypercholesteremia (Acute) Hyponatremia (Acute) Transaminitis (Acute) Tinnitus, bilateral (Acute) Genitofemoral neuralgia (Chronic) Medical History Allergic rhinitis Asthma, mild intermittent Mood disorder Surgical History H/O adenoidectomy Family History Father Alcohol use disorder Social History Smoking/Tobacco Use Status: Current every day Tobacco Type: e-cigarettes Smoking risk assessment performed?: Yes Alcohol Intake: former Substance use type: does not use Do you feel safe at home: Yes Do you feel safe in your relationship?: Yes Additional Social history: Lives alone with 2 dogs. Exam Narrative Exam Narrative: Constitutional: Alert and oriented x3. Appears stated age. Normal body habitus. Head: Normocephalic, no trauma. Eyes: Pupils PERRL, Red reflex noted, EOM's intact. Eyelids symmetrical without lesions, discharge, or swelling. ENT: Bilateral TM's WNL, External ear normal to inspection, no mastoid TTP, swelling, or erythema, Nasal turbinates WNL, no nasal discharge. Normal dentition, Posterior pharynx WNL, no exudate. Chest: RRR, Normal S1, S2, distal pulses intact. Resp: Lungs clear to auscultation bilaterally, no wheezes, rales, or rhonchi. Abdomen: Soft, non-distended, Normoactive bowel sounds all 4 quads. Slightly tender to right upper quadrant left upper quadrant with palpation. Musculoskeletal: Normal gait, 5/5 strength to all four extremities. Skin: No suspicious rashes or lesions. Capillary refill less than 2 sec. Neurologic: Cranial nerves II-XII intact. Alert and oriented x 3. Motor: No deficits noted. Sensory: Intact bilaterally all 4 extremities. Hematologic/Lymphatic: No ecchymosis, no lymphadenopathy. Course Vital Signs Vital signs: Vital Signs Temperature 37.1 C 08/31/22 17:34 Pulse 93 H 08/31/22 17:34 Respiratory Rate 18 08/31/22 17:34 Blood Pressure 144/85 H 08/31/22 17:34 Pulse Oximetry 97 08/31/22 17:34 Temperature 37.1 C 08/31/22 17:34 Pulse 93 H 08/31/22 17:34 Respiratory Rate 18 08/31/22 17:34 Respiratory Effort 08/31/22 17:39 Blood Pressure 144/85 H 08/31/22 17:34 Blood Pressure Position Sitting 08/31/22 17:34 Pulse Oximetry 97 08/31/22 17:34 Oxygen Delivery Method Room Air 08/31/22 17:34 Oxygen Flow Rate 0 08/31/22 17:34 Pain Level 3 08/31/22 17:34 PAWSS Have you Been Recently Intoxicated or Drunk Within the Last 30 days?: No Result: 0
[2022-08-31 18:27] LABS: Bilirubin Negative (Negative); Blood Negative (Negative); Clarity Clear (Clear); Glucose Negative (Negative); Ketones Negative (Negative); Leukocyte Esterase Negative (Negative); Nitrite Negative (Negative); Specific Gravity <= 1.005 (1.005-1.025); Urobilinogen 0.2 EU/dL (Up TO 0.2); pH 5.5 (5-8)
[2022-08-31 18:39] LABS: Abs Immature Grans 0.03 10^3/uL (0.0-0.06); Absolute Basophil Count 0.11 10^3/uL (0.0-0.2); Absolute Eosinophil Count 0.79 10^3/uL (0.0-0.7); Absolute Monocyte Count 0.58 10^3/uL (0.1-0.8); Absolute Neutrophil Count 4.45 10^3/uL (1.2-6.7); Basophils % 1.3; Eosinophils % 9.7; HCT 41.2 % (40.0-50.0); HGB 13.5 g/dL (13.5-17.5); Immature Grans % 0.4; MCH 31.8 pg (27.0-33.0); MCHC 32.8 % (32.0-36.0); MCV 97 fL (80-95); MPV 9.1 fL (8.0-11.0); Monocytes % 7.1; Neutrophils % 54.5; Platelet Count 576 10^3/uL (130-400); RBC 4.24 10^6/uL (4.36-5.78); RDW 12.3 % (11.8-14.1); RDW-SD 43.7 fL; WBC 8.16 10^3/uL (4.4-10.8)
[2022-08-31 18:43] LABS: Lactate 1.9 mmol/L (0.6-1.4)
[2022-08-31] MEDS: clonazePAM 0.5 MG TAB PO ×2 (18:51→20:17)
[2022-08-31 19:10] LABS: ALT 66 U/L (16-63); AST 41 U/L (15-37); Albumin 5.3 g/dL (3.4-5.0); Alkaline Phosphatase 145 U/L (46-116); Anion Gap 12.2 mmol/L (3-11); BUN 24 mg/dL (7-18); Bilirubin, Total 0.5 mg/dL (0.2-1.0); CO2 26.8 mmol/L (21.0-32.0); CREATININE 1.1 mg/dL (0.70-1.30); Calcium 10.5 mg/dL (8.5-10.1); Chloride 99 mmol/L (98-107); Estimated GFR 96.14 (mL/min/1.73m2); Glucose 121 mg/dL (74-106); Lipase 41 U/L (73-393); Potassium 3.8 mmol/L (3.5-5.1); Sodium 138 mmol/L (136-145); Total Protein 9.8 g/dL (6.4-8.2)
[2022-08-31] MEDS: Normal Saline 1,000 ML 1000 ML IV (19:11)
[2022-08-31 20:11] VITALS: BP 137/72; PULSE 77; RESP 18; O2SAT 99
== END 2022-08-31 20:38 | disposition home or self-care (01) ==
PROVIDERS: Emergency Provider Registered Nurse Emergency; PCP Family Medicine
DX: K86.1 Other chronic pancreatitis (principal); K85.90 Acute pancreatitis without necrosis or infection, unspecified; J45.909 Unspecified asthma, uncomplicated
CPT/HCPCS: 36415; 80053; 83690; 96360; 99284; 81003; 83605; 83735; 85025

== ENCOUNTER 2023-02-01 15:39 | Outpatient (REF) | payer MEDICAID, SELFPAY ==
[2023-02-01 18:49] LABS: Abs Immature Grans 0.03 10^3/uL (0.0-0.06); Absolute Basophil Count 0.05 10^3/uL (0.0-0.2); Absolute Lymphocyte Count 1.96 10^3/uL (1.2-3.4); Absolute Monocyte Count 0.48 10^3/uL (0.1-0.8); Absolute Neutrophil Count 4.07 10^3/uL (1.2-6.7); Basophils % 0.7; Eosinophils % 4.4; HCT 44.8 % (40.0-50.0); HGB 15.1 g/dL (13.5-17.5); Immature Grans % 0.4; Lymphocytes % 28.4; MCH 29.8 pg (27.0-33.0); MCHC 33.7 % (32.0-36.0); MCV 88 fL (80-95); MPV 9.6 fL (8.0-11.0); Neutrophils % 59.1; Platelet Count 359 10^3/uL (130-400); RBC 5.07 10^6/uL (4.36-5.78); RDW 12.2 % (11.8-14.1); RDW-SD 39.3 fL; WBC 6.89 10^3/uL (4.4-10.8)
[2023-02-01 19:29] LABS: ALT 24 U/L (16-63); AST 23 U/L (15-37); Albumin 4.5 g/dL (3.4-5.0); Alkaline Phosphatase 97 U/L (46-116); Anion Gap 8.2 mmol/L (3-11); BUN 13 mg/dL (7-18); Bilirubin, Total 0.4 mg/dL (0.2-1.0); CO2 28.8 mmol/L (21.0-32.0); CREATININE 0.9 mg/dL (0.70-1.30); Calcium 9.5 mg/dL (8.5-10.1); Chloride 104 mmol/L (98-107); Estimated GFR 122.31 (mL/min/1.73m2); Glucose 126 mg/dL (74-106); Potassium 4.7 mmol/L (3.5-5.1); Sodium 141 mmol/L (136-145); TSH (W/Ref FT4) 0.61 uIU/mL (0.36-3.74); Total Protein 7.6 g/dL (6.4-8.2); Vitamin B12 443 pg/mL (193-986)
[2023-02-04 11:25] LABS: Lyme Ab w Rflx to Lyme Confirm Negative (Negative)
== END 2023-02-01 15:40 | disposition home or self-care (01) ==
LOC: NCHCN 15:39
PROVIDERS: PCP Family Medicine; Visit Provider Nurse Practitioner Family
DX: F41.1 Generalized anxiety disorder (principal); G47.00 Insomnia, unspecified; D47.3 Essential (hemorrhagic) thrombocythemia; R74.01 Elevation of levels of liver transaminase levels; R00.2 Palpitations; Z87.898 Personal history of other specified conditions
CPT/HCPCS: 80053; 82607; 84443; 85025; 86618

== ENCOUNTER 2023-04-17 11:30 | Emergency (ER) | payer MEDICAID, SELFPAY ==
--- NOTE | 2023-04-17 11:30 | DI.RAD_ITS ---
Exam(s) XR THUMB LT EXAM: XR THUMB LT CLINICAL HISTORY: crushed tip with hammer. TECHNIQUE: 2D digital imaging was performed. COMPARISON: No exams were available for comparison FINDINGS: 3 views No evidence of acute fracture or dislocation. No radiopaque foreign body. No osseous lesions. Bone density normal. No erosions. No degenerative changes in the articulations of thumb and other finge rs. IMPRESSION: No acute osseous findings. No radiopaque foreign body. DATA REPOSITORY: RADIATION DOSE DELIVERED:
[2023-04-17 11:33] VITALS: BP 156/100; PULSE 65; RESP 20; TEMP 37; O2SAT 99
--- NOTE | 2023-04-17 11:42 | W.ED.GENAD ---
Discharge Plan Disposition Patient Disposition: Home Discharge Details Clinical Impression: Hematoma, subungual, thumb, left Primary Care Provider: Estuardo Graham ED Provider: John Reis Home Meds and New Rx's Prescriptions: No Action gabapentin 300 mg capsule 1,400 mg PO DAILY clonidine HCl 0.1 mg tablet 0.1 mg PO QHS clonazepam 0.5 mg tablet 0.5 mg PO QHS PRN (Reason: anxiety) Qty: 3 0RF Rx Instructions: administer 30 minutes before bedtime celecoxib 200 mg capsule 200 mg PO 2XD Patient Comments: TAKE ONE CAPSULE BY MOUTH TWICE DAILY WITH MEALS IN PLACE OF IBUPROFEN. DO NOT USE IBUPROPHEN OR ALEVE WITH THIS. MAY TAKE TYLENOL citalopram 40 mg tablet 40 mg PO 1XD Patient Comments: TAKE 1 TABLET BY MOUTH EVERY DAY pantoprazole 20 mg Tablet,Delayed Release (Dr/Ec) 20 mg PO DAILY mirtazapine 15 mg tablet 15 mg PO HS Patient Comments: TAKE 1 TABLET BY MOUTH EVERY DAY AT BEDTIME gemfibrozil 600 mg Tablet 600 mg PO BID@0730,1630 Qty: 60 0RF thiamine mononitrate (vit B1) [Vitamin B-1 (mononitrate)] 100 mg Tablet 100 mg PO QAM Qty: 0 0RF Patient Comments: PT states that he stopped taking it this year. clonazepam 0.5 mg tablet See Rx Instructions .ROUTE .COMPLEX Qty: 22 0RF Rx Instructions: 3 tabs twice a day for 2 days, then 2 tab twice daily for 2 days, then 1 tab twice daily for 2 days Discharge Instructions Instructions: Cephalexin (By mouth), Subungual Hematoma (ED) Additional Instructions: At this time you had a subungual hematoma which was lysed and drained. It may continue to ooze for a little bit. After this when it stops you can place triple antibiotic ointment on it. Please use the brace to prevent any reinjury to the thumb. I would recommend utilizing the brace for the next 1 to 2 weeks as the thumb heals. There is no clear evidence of large fracture, however there may be a small crack and there is definitely a contusion to the bone. Please take the Keflex antibiotic as directed. Take Tylenol and Motrin as needed for pain. If you notice any worsening of your symptoms, or any new symptoms such as vomiting, diarrhea, fever, chills, shortness of breath, chest pain, numbness, weakness, or fainting , please return immediately to the emergency department for reevaluation. Please follow up with your primary care provider as soon as possible for reassessment and reevaluation. As always, it was a pleasure participating in your medical care today. Referrals: Estuardo Graham [Primary Care Provider] - Medical Decision Making This is a very pleasant 22-year-old male with no significant past medical history who presents today for evaluation of trauma to his left thumb. He is right-hand dominant. Few hours ago he was swinging a hammer when he missed and slipped and crushed the end of his left thumb. He had immediate pain. Now there is a notAable vice crystal report developer sensation on the tip with it, he has a bruise underneath the nail, and he came in for evaluation of potential fracture. He admits to tingling on the tip. He denies any other complaints. Pain is made worse with movement and palpation. Improved by nothing. Exam demonstrates a notably tender swollen distal left thumb, subungual hematoma noted. Concern for potential fracture as well as a painful subungual hematoma. Will anesthetize the finger, get an x-ray to rule out fracture, monitor closely and reassess. X-rays negative for fracture per radiology. Nail was trephinated, he had complete resolution of his pain. He feels much better. Patient will be discharged home. We will give 24 hours of antibiotics to cover for any potential infectious component. No indication for treatment of open fracture secondary to the negative x-ray. Discussed red flags for which to return. I have extensively reviewed the treatment plan and discharge instructions with the patient. I have addressed all patient concerns at this time. The patient was made aware of what symptoms to monitor for that would warrant a return to the emergency department. Discussed the plan with the patient, they demonstrate verbal understanding and agreement with our assessment and plan at this time. The documentation in this chart was dictated using [employer] dictation software. Please excuse any dictation errors. FINDINGS: 3 views No evidence of acute fracture or dislocation. No radiopaque foreign body. No osseous lesions. Bone density normal. No erosions. No degenerative changes in the articulations of thumb and other fingers. IMPRESSION: No acute osseous findings. No radiopaque foreign body. HPI General Date/Time Provider Initiated Documentation: 04/17/23 11:32. HPI Narrative: This is a very pleasant 22-year-old male with no significant past medical history who presents today for evaluation of trauma to his left thumb. He is right-hand dominant. Few hours ago he was swinging a hammer when he missed and slipped and crushed the end of his left thumb. He had immediate pain. Now there is a notAable vice crystal report developer sensation on the tip with it, he has a bruise underneath the nail, and he came in for evaluation of potential fracture. He admits to tingling on the tip. He denies any other complaints. Pain is made worse with movement and palpation. Improved by nothing. Related Data Home Medications Medication Instructions Recorded Confirmed clonidine HCl 0.1 mg tablet 0.1 mg PO QHS 02/19/22 04/17/23 gabapentin 300 mg capsule 1,400 mg PO DAILY 02/19/22 04/17/23 mirtazapine 15 mg tablet 15 mg PO HS 08/07/22 04/17/23 clonazepam 0.5 mg tablet See Rx Instructions .Route 08/10/22 04/17/23 .COMPLEX #22 tabs gemfibrozil 600 mg tablet 600 mg PO BID@0730,1630 #60 tabs 08/10/22 04/17/23 thiamine mononitrate (vit B1) 100 100 mg PO QAM #0 tabs 08/10/22 04/17/23 mg tablet (Vitamin B-1 (mononitrate)) celecoxib 200 mg capsule 200 mg PO 2XD 08/31/22 04/17/23 citalopram 40 mg tablet 40 mg PO 1XD 08/31/22 04/17/23 clonazepam 0.5 mg tablet 0.5 mg PO QHS PRN anxiety #3 tabs 08/31/22 04/17/23 pantoprazole 20 mg tablet,delayed 20 mg PO DAILY 04/17/23 04/17/23 release Previous Rx's Medication Instructions Recorded clonazepam 0.5 mg tablet See Rx Instructions .Route 08/10/22 .COMPLEX #22 tabs gemfibrozil 600 mg tablet 600 mg PO BID@0730,1630 #60 tabs 08/10/22 thiamine mononitrate (vit B1) 100 100 mg PO QAM #0 tabs 08/10/22 mg tablet (Vitamin B-1 (mononitrate)) clonazepam 0.5 mg tablet 0.5 mg PO QHS PRN anxiety #3 tabs 08/31/22 Allergies Allergy/AdvReac Type Severity Reaction Status Date / Time No Known Allergies Allergy Verified 04/17/23 11:36 General Stated Complaint: Orthopedic HUONG: 4 Review of Systems All systems reviewed & are unremarkable except as noted in HPI and below PFSH All Active Problems (Updated 04/17/23 @ 12:00 by John Reis DO) Hematoma, subungual, thumb, left (Acute) Hypertriglyceridemia (Acute) Hypercholesteremia (Acute) Hyponatremia (Acute) Transaminitis (Acute) Tinnitus, bilateral (Acute) Genitofemoral neuralgia (Chronic) Medical History Allergic rhinitis Asthma, mild intermittent Mood disorder Surgical History H/O adenoidectomy Family History Father Alcohol use disorder Social History Smoking/Tobacco Use Status: Current every day Tobacco Type: e-cigarettes Smoking risk assessment performed?: Yes Alcohol Intake: former Substance use type: does not use Do you feel safe at home: Yes Do you feel safe in your relationship?: Yes Additional Social history: Lives alone with 2 dogs. Exam Narrative Exam Narrative: 1.Const: Well-nourished, Well-developed, appearing stated age 2.Eyes: PERRL, no conjunctival injection, and symmetrical lids. 3.ENT: Atraumatic external nose and ears. Moist MM. Neck: Symmetric, trachea midline, No thyromegaly. 4.CVS: +S1/S2, No murmurs or gallops. Peripheral pulses 2+ and equal in all extremities. Brisk capillary refill in all extremities. 5.RESP: Unlabored respiratory effort. Clear to auscultation bilaterally. No wheezes rales or rhonchi 6.GI: Soft, Nontender/Nondistended, No hepatosplenomegaly. No guarding or rebound. 7.MSK: Patient's left thumb demonstrates bruising and swelling of the distal tip. There is a subungual hematoma. Tenderness at the distal tip, pain with movement. No tenderness over the proximal phalanges of the left thumb. Patient is able to flex and extend well. Capillary refill is 2 seconds. 8.Skin: Warm, Dry. No rashes or lesions. 9.Neuro: lunchroom mother II-XII grossly intact. Sensation grossly intact, no focal neurologic deficits. 10.Psych: (AAO) x3. Appropriate mood and affect Course Vital Signs Vital signs: Vital Signs Temperature 37.0 C 04/17/23 11:33 Pulse 65 04/17/23 11:33 Respiratory Rate 20 04/17/23 11:33 Blood Pressure 156/100 H 04/17/23 11:33 Pulse Oximetry 99 04/17/23 11:33 Temperature 37.0 C 04/17/23 11:33 Pulse 65 04/17/23 11:33 Respiratory Rate 20 04/17/23 11:33 Respiratory Effort Normal 04/17/23 11:40 Blood Pressure 156/100 H 04/17/23 11:33 Blood Pressure Position Supine 04/17/23 11:33 Pulse Oximetry 99 04/17/23 11:33 Oxygen Delivery Method Room Air 04/17/23 11:33 Oxygen Flow Rate 0 04/17/23 11:33 Pain Level 8 04/17/23 11:33 Procedures Nail Trephination Time out: Yes Location (finger): left Sterile prep: other (etoh) Method of drainage: nail cautery Procedure successful: Yes Patient tolerated procedure: well and no complications Nerve Block Nerve Block 1: Time out performed: Yes Local Anesthetic: Lidocaine 1% Amount of anesthesia used (mL): 2 Side: left Nerve Blocks: other (Left thumb) Procedure Successful: Yes Patient Tolerated Procedure: well and no complications Complications: none
[2023-04-17] MEDS: Cephalexin 500 MG CAP, 4 CAPS/BTL PO (12:08)
[2023-04-17] MEDS: Ibuprofen 800 MG TAB PO (12:08)
== END 2023-04-17 12:09 | disposition home or self-care (01) ==
PROVIDERS: Emergency Provider Student in an Organized Health Care Education/Training Program; PCP Family Medicine
DX: S60.112A Contusion of left thumb with damage to nail, initial encounter (principal); W22.8XXA Striking against or struck by other objects, initial encounter; F17.210 Nicotine dependence, cigarettes, uncomplicated
CPT/HCPCS: 11740; 73140

== ENCOUNTER 2024-01-10 21:29 | Emergency (ER) | payer MEDICAID, SELFPAY ==
[2024-01-10 21:35] VITALS: BP 156/104; PULSE 89; RESP 24; TEMP 36.3; O2SAT 97
--- NOTE | 2024-01-10 21:45 | DI.RAD_ITS ---
Exam(s) XR CHEST 2V PA LATERAL EXAM: XR CHEST 2V PA LATERAL CLINICAL HISTORY: Shoulder pain, SOB. TECHNIQUE: 2D digital imaging was performed. COMPARISON: CT CT ABDOMEN PELVIS W from 08/31/2022 FINDINGS: 2 views: Heart size is normal. The mediastinum is not widened. Lungs are clear. No infiltrates nor pleural effusions. IMPRESSION: No acute pulmonary findings. DATA REPOSITORY: RADIATION DOSE DELIVERED:
--- NOTE | 2024-01-10 21:45 | DI.RAD_ITS ---
Exam(s) XR SHOULDER LT COMPLETE 2+V EXAM: XR SHOULDER LT COMPLETE 2+V CLINICAL HISTORY: Left shoulder pain. TECHNIQUE: 2D digital imaging was performed. COMPARISON: No exams were available for comparison FINDINGS: Four views. There is no evidence of fracture or dislocation nor abnormal soft tissue calcifications. Subacromial space is not diminished. Bone density normal. No osseous lesions. There is a nondisplaced fracture of the left 1st rib seen on the Grashey view. Left clavicle and AC joint appear unremarkable. IMPRESSION: No acute osseous findings in the left shoulder but there is a nondisplaced fracture of the ipsilatera l left 1st rib. DATA REPOSITORY: RADIATION DOSE DELIVERED:
--- NOTE | 2024-01-10 21:49 | ED.GENADUL_ITS ---
Discharge Plan Disposition Patient Disposition: Home Condition: Stable Discharge Details Clinical Impression: Muscle spasm of back, Closed fracture of one rib of left side Primary Care Provider: BROOK ESTEVES ED Provider: Madhuri Leal Home Meds and New Rx's Prescriptions: New cyclobenzaprine 10 mg tablet 10 mg PO TID PRN (Reason: muscle spasm) Qty: 10 0RF No Action gabapentin 300 mg capsule 1,600 mg PO DAILY clonidine HCl 0.1 mg tablet 0.1 mg PO QHS citalopram 40 mg tablet 40 mg PO 1XD Patient Comments: TAKE 1 TABLET BY MOUTH EVERY DAY saffron extract 176.5 mg tablet 176.5 mg PO DAILY Discharge Instructions Instructions: Rib Fracture (ED), Muscle Spasm (ED) Additional Instructions: Alternate with ice and heat. You may apply Biofreeze or similar topical such as IcyHot which you can get [id number]. At this time it appears you have a first rib fracture. No bony abnormalities noted to your left shoulder other than the rib fracture. Rest ice compression elevation. You may consider a sling if that feels better. Do not lift anything heavy. Return to the ER for any worsening shortness of breath, worsening pain not relieved by Tylenol or ibuprofen or concerns. Stand Alone Forms: Work Release Referrals: BROOK ESTEVES, BRIDGE MAINTAINER [Primary Care Provider] - 3 days HPI General Mode of arrival: ambulatory . Date/Time Provider Initiated Documentation: 01/10/24 21:30 . Limitations to Documentation: no limitations . Information obtained by: patient, RN notes reviewed and old records reviewed . HPI Narrative: 23-year-old male presents to the ER with chief complaint left posterior shoulder pain after stretching. Patient reports approximately an hour and a half ago he lifted his arms above his head and felt a pop has severe pain in the posterior left scapular area. He reports pain worse on inhalation. He does have lung sounds bilaterally on initial exam, O2 sat is 97% room air. He is a daily smoker. He did take ibuprofen 8 or milligrams this a.m. Did not take any medications prior to arrival. No obvious deformity noted on palpation he does have posterior scapular muscle pain with palpation. Past medical history includes asthma mood disorder allergic rhinitis history of adenoidectomy. Denies any previous surgeries. Family reports that he has broken his arm as a child. Denies any other trauma. He did see physical therapy for the last 2 to 3 months. Related Data Home Medications Medication Instructions Recorded Confirmed clonidine HCl 0.1 mg tablet 0.1 mg PO QHS 02/19/22 01/10/24 gabapentin 300 mg capsule 1,600 mg PO DAILY 02/19/22 01/10/24 citalopram 40 mg tablet 40 mg PO 1XD 08/31/22 01/10/24 cyclobenzaprine 10 mg tablet 10 mg PO TID PRN muscle spasm #10 01/10/24 tabs saffron extract 176.5 mg tablet 176.5 mg PO DAILY 01/10/24 01/10/24 Previous Rx's Medication Instructions Recorded cyclobenzaprine 10 mg tablet 10 mg PO TID PRN muscle spasm #10 01/10/24 tabs Allergies Allergy/AdvReac Type Severity Reaction Status Date / Time No Known Allergies Allergy Verified 04/17/23 11:36 General Stated Complaint: Orthopedic HUONG: 3 Review of Systems All systems reviewed & are unremarkable except as noted in HPI and below Cardiovascular Cardiovascular: Reports dyspnea Respiratory Respiratory: Reports as per HPI and Reports dyspnea Musculoskeletal Musculoskeletal: Reports as per HPI and Reports back pain Exam Resp Effort & Inspection: abnormal respiratory pattern (shallow breathing due to pain), no stridor, no tracheal deviation, tripod positioning and No prolonged expiratory phase Auscultation: clear to auscultation bilaterally and no wheezes Back/Spine/Pelvis Cervical Spine: normal cervical lordosis Thoracic/Lumbar Spine: thoracic and lumbar spine normal to inspection and paraspinal tenderness Back/spine/pelvis image: 2 1. Pain with palpation Extrem Right upper extremity: normal to inspection Left upper extremity: normal to inspection and shoulder/upper arm Details: inspection abnormal, tenderness Location: of the scapula and abnormal ROM Details: pain with active ROM Details: in ABduction and in extension Course Vital Signs Vital signs: Vital Signs Temperature 36.3 C L 01/10/24 21:35 Pulse 89 01/10/24 21:35 Respiratory Rate 01/10/24 21:35 Blood Pressure 156/104 H 01/10/24 21:35 Pulse Oximetry 97 01/10/24 21:35 Temperature 36.3 C L 01/10/24 21:35 Temperature Source Temporal Artery Scan 01/10/24 21:35 Pulse 89 01/10/24 21:35 Respiratory Rate 01/10/24 21:35 Respiratory Effort Normal, Non-Labored 01/10/24 21:43 Blood Pressure 156/104 H 01/10/24 21:35 Blood Pressure Position Sitting 01/10/24 21:35 Pulse Oximetry 97 01/10/24 21:35 Oxygen Delivery Method Room Air 01/10/24 21:35 Oxygen Flow Rate 0 01/10/24 21:35 Pain Level 10 01/10/24 21:43 Medical Decision Making 23-year-old male presents to the ER with chief complaint left posterior shoulder pain after stretching. Patient reports approximately an hour and a half ago he lifted his arms above his head and felt a pop has severe pain in the posterior left scapular area. He reports pain worse on inhalation. He does have lung sounds bilaterally on initial exam, O2 sat is 97% room air. He is a daily smoker. He did take ibuprofen 8 or milligrams this a.m. Did not take any medications prior to arrival. No obvious deformity noted on palpation he does have posterior scapular muscle pain with palpation. Past medical history includes asthma mood disorder allergic rhinitis history of adenoidectomy. Denies any previous surgeries. Family reports that he has broken his arm as a child. Denies any other trauma. He did see physical therapy for the last 2 to 3 months. Patient reports that his pain in his left shoulder increases with moving his right shoulder. There is some trigger point noted to the rhomboid area and tenderness with palpation. X-ray of left shoulder, chest x-ray ordered Flexeril lidocaine patch and ibuprofen. Differential diagnosis includes not limited to muscle strain, pneumothorax, tendon rupture, X-ray shows nondisplaced left first rib fracture. I did discuss this with patient and family he is unaware of any recent trauma. Chest x-ray within normal limits. Will give him 2.5 mg of Valium IM and discharge with instructions to alternate Tylenol ibuprofen by ice I did discuss using a sling with him however patient declined. Patient discharged in hemodynamically stable condition with family. Given instructions on home care and strict return instructions. This text was generated using [employer]-Doorsation system, please disregard any oddities of phrase or misspellings. Quality:SDOH Health Related Social Needs: 2 No Data to Display PFSH All Active Problems (Updated 01/10/24 @ 22:40 by Madhuri Leal NP) Closed fracture of one rib of left side (Acute) Muscle spasm of back (Acute) Hypertriglyceridemia (Acute) Hypercholesteremia (Acute) Hyponatremia (Acute) Transaminitis (Acute) Tinnitus, bilateral (Acute) Genitofemoral neuralgia (Chronic) Medical History Allergic rhinitis Asthma, mild intermittent Mood disorder Surgical History H/O adenoidectomy Family History Father Alcohol use disorder Social History Smoking/Tobacco Use Status: Current every day Tobacco Type: cigarettes and e- cigarettes Smoking risk assessment performed?: Yes Alcohol Intake: former Drug use: Occasionally Substance use type: prescription drug Details: Occasionally takes Adderall not prescribed to him. Pt states he is 'working on getting a regular rx for it' for his ADHD Housing: house Do you feel safe at home: Yes Do you feel safe in your relationship?: Yes Additional Social history: Lives alone with 2 dogs.
[2024-01-10] MEDS: Lidocaine 5% Patch 1 PATCH TP (21:50)
[2024-01-10] MEDS: Ibuprofen 800 MG TAB PO (21:50)
[2024-01-10] MEDS: Cyclobenzaprine 10 MG TAB PO (21:50)
--- NOTE | 2024-01-10 22:15 | DI.VRAD_ITS ---
PROCEDURE INFORMATION: Exam: XR Chest Exam date and time: 01/10/2024 9:59 PM Age: 23 years old Clinical indication: Shortness of breath TECHNIQUE: Imaging protocol: Radiologic exam of the chest. Views: 2 views. COMPARISON: CT ABDOMEN PELVIS W 08/31/2022 3:17 PM FINDINGS: Lungs: Unremarkable. No consolidation. Pleural spaces: Unremarkable. No pleural effusion. No pneumothorax. Heart/Mediastinum: Unremarkable. No cardiomegaly. Bones/joints: Unremarkable. IMPRESSION: No acute findings. Dictated and Authenticated by: Walker Oseguera MD. Ordering:CASPER Dhaliwal MD
--- NOTE | 2024-01-10 22:18 | DI.VRAD_ITS ---
PROCEDURE INFORMATION: Exam: XR Left Shoulder Exam date and time: 01/10/2024 10:01 PM Age: 23 years old Clinical indication: Pain; Shoulder; Left; Additional info: Left shoulder pain TECHNIQUE: Imaging protocol: Radiologic exam of the left shoulder. Views: 2 or more views. COMPARISON: CR XR CHEST 2V PA LATERAL 01/10/2024 9:59 PM FINDINGS: Bones/joints: Nondisplaced fracture of the left 1st rib. No other acute fracture. Osseous alignment is normal. No significant arthritic change Soft tissues: Normal. IMPRESSION: Normal appearance of the left shoulder. Nondisplaced left 1st rib fracture noted. Dictated and Authenticated by: Wlaker Oseguera MD. Ordering:CASPER Dhaliwal MD
[2024-01-10] MEDS: diazePAM 10 MG/2 ML SYR 2.5 MG IM (22:46)
[2024-01-10 22:59] VITALS: BP 140/78; PULSE 78; RESP 22; TEMP 36.7; O2SAT 99
== END 2024-01-10 22:59 | disposition home or self-care (01) ==
PROVIDERS: Emergency Provider Registered Nurse Emergency; PCP Nurse Practitioner Family
DX: M62.830 Muscle spasm of back (principal); S22.32XA Fracture of one rib, left side, initial encounter for closed fracture; E78.1 Pure hyperglyceridemia; E78.00 Pure hypercholesterolemia, unspecified; F17.210 Nicotine dependence, cigarettes, uncomplicated; F17.290 Nicotine dependence, other tobacco product, uncomplicated; X50.9XXA Other and unspecified overexertion or strenuous movements or postures, initial encounter; Y93.B9 Activity, other involving muscle strengthening exercises
CPT/HCPCS: 96372; 99284; 71046; 73030; 99283; J3360

== ENCOUNTER 2024-05-26 12:47 | Outpatient (CLI) | payer MEDICAID, SELFPAY ==
--- OUTSIDE RECORDS SUMMARY | 2024-05-26 12:49 | XMS_ITS | Clinical Summary ---
Author Organization [facility] Address [facility] [place] [address] Care Team Providers Care Geoint Analyst Name Role Phone None Primary Care Provider Unavailabl e Allergies No known active allergies Medications Medication Sig Dispensed Refills Start Date End Date Status citalopram (CeleXA) 20 mg Tablet Take 20 mg by mouth nightly. 07/10/2022 Active cloNIDine (Catapres) 0.1 mg Tablet Take 0.1 mg by mouth 3 times daily as needed. 07/23/2022 Active gabapentin (NEURONTIN) 600 mg Tablet Take 600 mg by mouth every morning. 07/31/2022 Active gabapentin (NEURONTIN) 800 mg Tablet Take 800 mg by mouth nightly. 07/31/2022 Active mirtazapine (Remeron) 15 mg Tablet Take 15 mg by mouth nightly. 08/02/2022 Active LORazepam (Ativan) 0.5 mg Tablet Take 0.5 mg by mouth daily as needed for Anxiety. Active pantoprazole EC (Protonix) 40 mg Tablet, Delayed Release (E.C.) Take 1 tablet by mouth daily. 30 tablet 08/15/2022 Active HYDROmorphone (Dilaudid) 2 mg Tablet Take 1 tablet by mouth every 6 hours as needed for Pain (for mild pain (1-3)). 12 tablet 08/14/2022 Active Active Problems Problem Noted Date Diagnosed Date Acute pancreatitis 08/11/2022 Social History Tobacco Use Types Packs/Day Years Used Date Smoking Tobacco: Every Day Cigarettes Smokeless Tobacco: Never Tobacco Cessation:Ready to Q uit: Not Asked; Counseling Given: Not Answered Alcohol Use Standard Drinks/Week Comments Not Currently 0 (1 standard drink = 0.6 oz pur e alcohol) last used 1/2/23 Sex and Gender Information Value Date Recorded Sex Assigned at Not on file Gender Identity Not on file Sexual Orientation Not on file Last Filed Vital Signs Vital Sign Reading Time Taken Comments Blood Pressure 159/105 08/14/2022 4:37 PM EST recheck - RN notified Pulse 92 08/13/2022 7:25 PM EST Temperature 37 ??C (98.6 ??F) 08/14/2022 4:3 7 PM EST Respiratory Rate 18 08/14/2022 3:27 PM EST Oxygen Saturation 98% 08/14/2022 4:3 7 PM EST Inhaled Oxygen Concentration - - Weight 78 kg (171 lb 15.3 oz) 08/14/2022 8:48 AM EST Height 165 cm (5' 4.96) 08/14/2022 8:4 8 AM EST Body Mass Index 28.65 08/14/2022 8:48 AM EST Plan of Treatment Health Maintenance Due Date Last Done Comments Pneumococcal Vaccine: At-Risk 5-64yrs (1 of 2 - PCV) 1 08/16/2003 HPV vaccine (1 - Male 3-dose series) 2013 HIV screen 2016 Hepatitis C Screening 2016 Lipid Screening 2016 Hepatitis B vaccine (0-59 yrs) (1) 2017 Tetanus/Diphtheria/Pertussis Vaccines (1 - Tdap) 06/16 Covid-19 Vaccine (1 - 2022-24 season) 2024 Influenza (Flu) vaccine (1 o f 1 - Influenza standard series) 04/05/2024 Advance Directives * Attempt Cardiopulmonary Resuscitation - Inpatient (Latest Code Status on File) Date Activated Date Inactivated Comments 08/11/2022 8:29 PM 08/14/2022 8:30 PM Question Answer Comments Code Status decision made by: Patient Content of discussion: alternate decision maker is his mom Care Teams Geoint Analyst Relationship Specialty Start Date End Date None None PCP - General 08/11/22
--- OUTSIDE RECORDS SUMMARY | 2024-05-26 12:49 | XMS_ITS | Encounter Summary ---
Author Organization [facility] [place] [address] Care Team Providers Care Jet Piercer Operator Name Role Phone None Primary Care Provider Unavailabl e Reason for Visit * Reason Comments Medication Refill Encounter Details Date Type Department Care Team (Late st Contact Info) Description 10/13/2022 Refill [place] [address] [place] [address] Social History Tobacco Use Types Packs/Day Years Used Date Smoking Tobacco: Every Day Cigarettes Smokeless Tobacco: Never Alcohol Use Standard Drinks/Week Comments Not Currently 0 (1 standard drink = 0.6 oz pur e alcohol) last used 08/06/22 Sex and Gender Information Value Date Recorded Sex Assigned at Not on file Gender Identity Not on file Sexual Orientation Not on file documented as of this encounter Plan of Treatment Not on file documented as of this encounter Visit Diagnoses Not on filedocumented in this encounter Care Teams Jet Piercer Operator Relationship Specialty Start Date End Date None None PCP - General 08/11/22 documented as of this encounter
--- OUTSIDE RECORDS SUMMARY | 2024-05-26 12:50 | XMS_ITS | Encounter Summary ---
Author Organization [facility] Address [address] [place] [address] Care Team Providers Care Medical Director Of Hospice Name Role Phone Unknown, Provider Primary Care Provider [phone] Encounter Details Date Type Department Care Team (Late st Contact Info) Description 01/31/2018 Results Only [facility] [phone] Imer Castañeda MD [address] [place] [address] [place] [address] Social History Tobacco Use Types Packs/Day Years Used Date Smoking Tobacco: Never Assessed Sex and Gender Information Value Date Recorded Sex Assigned at Not on file Gender Identity Not on file Sexual Orientation Not on file documented as of this encounter Plan of Treatment Not on file documented as of this encounter Procedures Procedure Name Priority Date/Time Associated Diagnosis Comments SURGICAL PATHOLOGY Routine 01/31/2018 9:38 EDT documented in this encounter Results * SURGICAL PATHOLOGY (01/31/2018 9:38 EDT) Pathology Report: SURGICAL PATHOLOGY REPORT Reports generated via electronic interface contain original data; however they are lacking the format of the original report. Caution should be taken when reading/interpreti ng unformatted reports. Name: ? LEROY LEWIS ? Accession #: ? [id number] ? : ? 2000 (Age: 17) ??M ? Collect Date: ? 01/31/2018 ? Location: ? [facility] ? Receive Date: ? 01/31/2018 ? Provider: IMER CASTAÑEDA MD Copy to: TAYO MARTEL MD ? Final Pathologic Diagnosis: SUBMITTED EPIDIDYMAL CYST, LATERALITY NOT SPECIFIED, EXCISION: - Benign epididymal cyst. Document reviewed and electronically signed by: YURY ERICKSON MD Report ??Date: 02/10/2018 09:01 By the signature above, the attending physician certifies that he/she has personally conducted a gross and/or microscopic examination of the described specimens and rendered or confirmed the above diagnosis. Specimen(s) Received: Epididymal cyst Clinical History: Epididymal cyst Gross Description: ? Received in formalin labelled with proper patient identification (initials N, C) and epididymal cyst is a francois-white fibromembranous cystic structure (2.0 x 1.8 x 1.1 cm). The specimen contains clear fluid and has a smooth kelly-white inner lining without excrescences. The wall is translucent and less than 0.1 cm in thickness with no nodules present. Pantry Goods Worker sections are submitted as [address] Dow 02/03/2018 2:42 PM End of Report [facility] 01/31/2018 9:38 EDT 01/31/2018 9:38 EDT Imer Castañeda MD PATHOLOGY ORDERAB LES [facility] [address] [place] [address] documented in this encounter Visit Diagnoses Not on filedocumented in this encounter Care Teams Medical Director Of Hospice Relationship Specialty Start Date End Date Unknown, Provider, PCP - General 06/16/15 02/03/18 documented as of this encounter
--- OUTSIDE RECORDS SUMMARY | 2024-05-26 12:50 | XMS_ITS | Encounter Summary ---
Author Organization [facility] [place] [address] Care Team Providers Care Claim Review Medical Director Name Role Phone None Primary Care Provider Unavailabl e Reason for Visit * Reason Comments Alcohol Problem * Auth/Cert (Routine) Specialty Diagnoses / Procedures Referred By Pablo t Referred To Contact Diagnoses Acute pancreatitis Procedures EMERGENCY IPI [place] [address] [facility] Referral ID Status Reason Start Date Expiration Date Visits Re quested Visits Authorized [id number] 1 1 Encounter Details Date Type Department Care Team (Latest Contact Info) Description 08/11/2022 3:05 PM EST - 08/14/2022 6:24 PM EST Hospital Encounter [address] [place] [address] [place] [address] Kaye Yao MD [facility] [place] [address] [place] [address] Acute pancreatitis (Primary Dx) Discharge Disposition: Home Social History Tobacco Use Types Packs/Day Years [...] on file documented as of this encounter Last Filed Vital Signs Vital Sign Reading Time Taken Comments Blood Pressure 159/105 08/14/2022 4:37 PM EST recheck - RN notified Pulse 92 08/13/2022 7:25 PM EST Temperature 37 ??C (98.6 ??F) 08/14/2022 4:3 7 PM EST Respiratory Rate 18 08/14/2022 3:27 PM EST Oxygen Saturation 98% 08/14/2022 4:3 7 PM EST Inhaled Oxygen Concentration - - Weight 78.9 kg (174 lb) 08/11/2022 11:4 7 AM EST Height 165.1 cm (5' 5) 08/11/2022 11:4 7 AM EST Body Mass Index 28.96 08/11/2022 11:47 AM EST documented in this encounter Discharge Summaries * Bc Cunningham MD - 08/14/2022 5:54 PM EST Images from the original note were not included. Discharge Summary Patient Name: Matthew Lewis Patient Age: 22 y.o. Language: Namibian Race: White Ethnicity: Not nor Admit date: 08/11/2022 Discharge date and time: 08/14/2022 6:00 PM Attending Physician: Bc Cunningham MD Discharge Physician: Bc Cunningham MD Follow-up Recommendations for Providers: - ongoing support with alcohol abstinence. We deferred starting naltrexone while the patient was taking opiate pain medication for pancreatitis. Could discuss this further once patient is off opiates - ongoing monitoring of abdominal pain. He had abdominal fluid collections on CT imaging, likely due to peripancreatic inflammation - continue to monitor anemia: stable in the 10-11 range during this hospitalization Inpatient Provider Contact Information: For questions regarding this document or issues relating to this hospitalization on the Medical Service, please contact your inpatient physician through the [facility] . Issues afterhours and on weekends will be handled by the Hospitalist staff on-call. Discharge Diagnoses (Hospital Problems) and Secondary Diagnoses (Chronic Problems): Active Hospital Problems Diagnosis ??? Acute pancreatitis Resolved Hospital Problems No resolved problems to display. There are no active non-hospital problems to display for this patient. Operations/Major Procedures: Operations: Other Major Procedures: none History of Presentation: Matthew Lewis is a 22 y.o. male with hx of HTN, generalized anxiety and recent admission to [facility] for acute pancreatitis due to alcohol and hypertriglyceridemia [facility]om[facility] and CT findings of ongoing acute pancreatitis. History obtained from patient and chart review. ?? Patient relates that he had been drinking more heavily that usual for about two weeks when he developed abd pain, N/V and presented to [facility] on 08/07. On arrival there his labs showed elevated lipase [id number], WBC of 21,000, Hgb of 18 and triglycerides of 1400. He was treated for acute pancreatitis with IV fluids and an insulin drip as well as a CIWA scale with lorazepam for alcohol withdrawal. Unfortunately patient was unable to remain in hospital due to his anxiety and left AMA on 08/10. He was discharged on a clonazepam taper, as well as thiamine and given a prescription for gemfibrozil which hehasn't filled. Since discharge home he has not been able to tolerate any food or drink and was not able to take his AM meds due to nausea. He had ongoing severe abdominal pain as well which led him to present to the [facility] ED for further eval and treatment. ?? In regards to his alcohol use patients states that he has been drinking most of his life and his dad is a nasty alcoholic and he doesn't want to that to be his future. After this event he states aarti longer wants to drink anymore and wants help staying sober. His reasons for drinking are his anxiety and his insomnia (trouble falling asleep due to generalized worry about all things), both of which he says worsened when he had a mental breakdown at the end 2019 (this was not explored any further during this interview). He has been treated with multiple meds for his insomnia for the past6 months none of which have been very helpful (ambien, trazodone, quetiapine and recently restartedon mirtazapine). He has never tried cognitive behavioral therapy for insomnia or anxiety because hedoesn't have insurance and cannot afford it. He is willing to try anything to help his anxiety, insomnia and alcohol use. He uses nicotine in the form of a vape pen. He had previously smoked but has stopped due to cigarettes making him nauseous. He is interested in nicotine replacement patch while admitted. He denies fevers, chills, nasal congestion, chest pain, new rash, LE edema or difficulty breathing. He does relate diarrhea since yesterday 3 x, large volume, racing to the toilet. ?? In the ED patient was tachycardic and hypertensive, WBC elevated to 13.9, anemia with Hgb of 10.9, mild hyponatremia of 134 and hypokalemia of 3.2 and nl lipase and liver enzymes with the exception of slightly elevated AST of 66. Urine drug screen positive for barbiturates and urinalysis significant for ketones >80. Ethanol level <100. CT abd/pelvis obtained showing acute interstitial edematous pancreatitis with peripancreatic fluid collection. Given his inability to tolerate PO, intractable abdominal pain, nausea and vomiting and clear signs of dehydration on labs hospital medicine wascalled to admit Hospital Course: #acute pancreatitis: secondary to alcohol use disorder; no signs on CT abdomen to suggest gallstonedisease. His lipase was normal on admission, but he had persistent classic epigastric pain and CT imaging findings consistent with pancreatitis. There were no signs of complications on CT imaging. Wecontinued IV fluids with LR at 150 cc/hr and slowly advanced his diet until he was tolerating a full diet by the time of discharge. He requested an abdominal binder, which we found helpful for pain control. His pain was controlled with PRN PO Dilaudid, which was weaned down to 2 mg every four hoursby the time of discharge. On the day of discharge, he was noted to have a slight elevated in WBC and platelets despite ongoing clinical improvement. A repeat CT scan did not show new complication andthe patient was feeling well enough to go home. He was discharged with a short course of Dilaudid and will follow up with his primary care doctor within the week. #suspected etOH gastritis: he reported several months of abdominal pain preceding this acute event,in the setting of ongoing heavy alcohol use. He was prescribed one month of pantoprazole to allow his stomach lumen to heal from presumed etOH gastritis. #alcohol use disorder: he was motivated to remain abstinent from alcohol after this hospitalization. He met with ARVIND, who provided resources for counseling in the area. He and I discussed MAT for AUDand decided that he would address naltrexone with his PCP once he is no longer using opiate pain medication. No evidence of alcohol withdrawal during this admission. Vital Signs at Discharge: BP: (!) 159/105 (recheck - RN notified), Heart Rate: 92, Temp: 37 ??C (98.6 ??F), Resp: 18, BMI (Calculated): 28.95 Height: 165.1 cm (5' 5) (08/11/22 1147) Weight: 78.9 kg (174 lb) (08/11/22 1147) Important Studies and Lab Data: Labs: Last 3 wbc, hgb, hct plt Recent Labs 08/14/22 0636 08/13/22 0649 08/12/22 0055 WBC 15.9* 14.5* 12.0* HGB 11.5* 10.7* 10.2* HCT 34.4* 31.7* 29.1* PLATELET 533* 410* 271 Last 3 Lytes Recent Labs 08/14/22 0921 08/14/22 0636 08/13/22 0649 08/12/22 0055 NA -- 136 134* 133* K 4.3 Not Perf 3.6 3.0* CL -- 101 97* 97* CO2 -- 27 24 BUN -- 5* 4* 3* CREATININE -- 0.45* 0.52* 0.53* Last 3 LFTs Recent Labs 08/13/22 0649 08/11/22 1633 AST 37 66* ALT 33 49 ALKPHOS 94 118 BILITOT 0.4 0.7 BILIDIR 0.1 -- Studies: Results for orders placed or performed during the hospital encounter of 08/11/22 CT Abdomen & Pelvis w Contrast (Exam End: 08/11/2022 5:49 PM) Impression Acute interstitial edematous pancreatitis with acute peripancreatic fluid collection. Thank you for letting us participate in the care of this patient. If you are a health care provider and have any questions regarding this report, please contact the number below. For patients who have questions please contact the health assurance services manager health care that requested your imaging first. Electronically signed by: Sanam Ahumada MD, [facility] ([phone]), at 08/11/2022 6:[address] Abdomen & Pelvis w Contrast (Exam End: 08/14/2022 3:09 PM) Impression 1. Acute interstitial pancreatitis with acute peripancreatic fluid collections. Extensive peripancreatic inflammation and fluid collections have increased marginally, however overall no major change. 2. Enlarging left pleural effusion and worsening left lower lobe atelectasis. 3. Hepatomegaly with diffuse hepatic steatosis. Thank you for letting us participate in the care of this patient. If you are a health care provider and have any questions regarding this report, please contact the number below. For patients who have questions please contact the health assurance services manager health care that requested your imaging first. Electronically signed by: Brionna Ribera MD, [facility] ([phone]), at 08/14/2022 5:08 PM Pending Studies and Lab Data: none Discharge to: home Updated Allergies/ADRs: No Known Allergies Immunizations Given this Hospitalization: There is no immunization history on file for this patient. Discharge Medications: Your Medications New Medications Dose Details HYDROmorphone 2 mg Tab Commonly known as: Dilaudid Take 1 tablet by mouth every 6 hours as needed for Pain (for mild pain (1-3)). 2 mg Quantity: 12 tablet Refills: 0 pantoprazole EC 40 mg Tbec Commonly known as: Protonix Take 1 tablet by mouth daily. Start taking on: August 15, 2022 40 mg Quantity: 30 tablet Refills: 0 Continued medications, unchanged Dose Details citalopram 20 mg Tab Commonly known as: CeleXA Take 20 mg by mouth nightly. 20 mg Refills: 0 cloNIDine 0.1 mg Tab Commonly known as: Catapres Take 0.1 mg by mouth 3 times daily as needed. 0.1 mg Refills: 0 * gabapentin 600 mg Tab Commonly known as: NEURONTIN Take 600 mg by mouth every morning. 600 mg Refills: 0 * gabapentin 800 mg Tab Commonly known as: NEURONTIN Take 800 mg by mouth nightly. 800 mg Refills: 0 LORazepam 0.5 mg Tab Commonly known as: Ativan Take 0.5 mg by mouth daily as needed for Anxiety. 0.5 mg Refills: 0 mirtazapine 15 mg Tab Commonly known as: Remeron Take 15 mg by mouth nightly. 15 mg Refills: 0 * This list has 2 medication(s) that are the same as other medications prescribed for you. Read thedirections carefully, and ask your doctor or other care provider to review them with you. Smoking Status at Discharge: Social History Tobacco Use Smoking Status Every Day ??? Types: Cigarettes Smokeless Tobacco Never Instructions Given to Patient at Discharge: Patient Instructions Instruction after leaving the hospital Why you were hospitalized: You came into the hospital for abdominal pain due to acute pancreatitis.During your hospitalization, your pain improved and you were able to tolerate food without difficulty. You may continue to use Dilaudid sparingly for severe pain. You may also continue to use Tylenoland ibuprofen for additional pain control. Please do not take lorazepam while taking Dilaudid, as taking these medications together can be dangerous. Please being taking the medication pantoprazole to decrease acid reflux. This will help your stomach heal from any damage caused by heavy alcohol use. For your alcohol use, please follow up with the resources provided below. Please discuss medications that can be used to decrease cravings with your primary doctor. Call your doctor or seek medical attention if you develop the following: Call your doctor or seek medical attention if you experience any alarming symptoms. This may include, but is not limited to, fever, chest pain, severe shortness of breath, nausea with vomiting, persistent decrease in your urinary output, severe pain, or any other concerning symptoms. Activity level: As tolerated. Diet: No new restrictions. Driving: Please do not drive if you feel lightheaded, dizzy, faint, or taking any opioids/narcotics(i.e oxycodone). It is advisable that you do not drive till you follow-up with your primary care physician. Shower/Bath: No new restrictions. Home Oxygen therapy: N/A Changes in Your Medications: New Medications: Dilaudid 2 mg every 6 hours as needed, pantoprazole 40 mg daily Medication dose changes: none Stop these medications: none Follow-Up Appointments Follow up with your primary doctor as previously scheduled Date and Time Provider and Specialty Location Need to be scheduled None , PCP None None Your Inpatient Doctor(s) at [facility]: Bc Cunningham MD Your Primary Care Provider: None None None For questions regarding this document or issues relating to this hospitalization on the Medical Service, please contact your inpatient physician through the [facility] . Issues afterhours and on weekends will be handled by the Hospitalist staff on-call. General Instructions Online Out Patient Treatment [facility] Online substance abuse counseling. Individual & group [phone] Local Recovery resources [place] [address] [facility] [address] [place] [address] Peer Support Groups Alcoholics Anonymous (AA) [place]: , www.Ansiraaa.net Narcotics Anonymous (NA) [place]: , www.Silenseedana.org Online AA and NA Meetings AA, NA, Refuge Recovery, SMART Recovery www.Ask.com AA Video Meetings www.aa-intergroup.org/directory_audio-video.php AA Text Chat Meetings www.aa.intergroup.org/directory.php NA Video Meetings www.Fuelzeena.org/meetings NA Text Chat Meetings Www.Nauboaloneclub.org SMART Recovery Meetings via Zoom 5:00-6:00pm, free and open to all To join Zoom meetin. Visit www.Authentix 2. Click on calendar on top of toolbar 3. Find the correct meeting date and time 4. 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 For more information about receiving supplies: including syringe exchange, fentanyl test strips, and naloxone, or to schedule an appointment: [place] clients call and leave a message for Isa (ext. 105) or Venkat Swain (ext. 104). [place] clients call to speak with Venkat Sanches Warning Illicit drugs do not come with an ingredients list. Many illicit drugs are laced with fentanyl and other drugs. Powdered fentanyl looks just like many other drugs. It is commonly mixed with drugs like heroin, cocaine, and methamphetamine and made into pills that are made to resemble other prescription opioids.Fentanyl-laced drugs are extremely dangerous, and many people may be unaware that their drugs are laced with fentanyl. Fentanyl itself is often laced with benzodiazepines (depressant) and Xylazine (seadative) ???benzo dope?tranq?? blackout dope which increases the risk of overdose and . Suboxone Emergency Override There is an emergency override requirement on all medications that require prior insurance authorization. If you experience any issues picking up your suboxone prescription at the pharmacy you may request an override. They are required to provide the quantity of suboxone sufficient for 72 hours while the prior insurance authorization is being approved. Online Stress Reduction Resources www.[employer]ne [employer]/videos-features/videos/rjgtdibid-obvlkvujo-4-7-8-breath/ www.WTFast.org/2013/qalhqllwy-kreeanpum-ektazmp-moment/ www.headsKaryopharm Therapeutics.Facio/ www.mindful.org/ www.freemindfulness.org/ Employment Agency Working [employer] [address] [place] [address] [address] [place] [address] [email or web address] Providing an opportunity for successful employment and recovery by empowering individuals to managechallenges because of substance use addiction and past convictions. Discharge References/Attachments None documented in this encounter Discharge Instructions * Discharge Instructions* Manisha Amezcua - 08/13/2022 1:30 PM EST Online Out Patient Treatment [facility] Online substance abuse counseling. Individual & group [phone] Local Recovery resources [place] [address] [facility] [address] [place] [address] Peer Support Groups Alcoholics Anonymous (AA) [place]: , www.nhaa.net Narcotics Anonymous (NA) [place]: , www.Silenseedana.org Online AA and NA Meetings AA, NA, Refuge Recovery, SMART Recovery www.Ask.com AA Video Meetings www.aaQingCloudintergroup.org/directory_audio-video.php AA Text Chat Meetings www.aaLogoneXintergroup.org/directory.php NA Video Meetings www.Fuelzeena.org/meetings NA Text Chat Meetings Www.Synchronicity.co.org SMART Recovery Meetings via Zoom 5:00-6:00pm, free and open to all To join Zoom meeting: Visit wwwDomo Safety Click on calendar on top of toolbar Find the correct meeting date and time Click the zoom link and enter password provided Additional Substance Use Treatment Resources https://www.smartrecovery.org/ Www.vtaddictionservices.org www.health[place].gov/alcohol-drugs www.[place] [address].org/ (Search for Substance Use) www.Tinselvision.Facio/ Www.rethinkingdrinking.niaaa.nih.gov/ www.samhsa.gov/bpytueoqfw-tctzezgp-dsvcflrux/tvdfvqqtrovx-ipiqhvy-ypej/treatment -practitioner-wafer polishing worker Mental Health Crisis National Mental [facility] Crisis Line: Dial 988 www.samhsa.gov/find-help/988 Harm-Reduction Resources Mobile SumAll. For more information about receiving supplies: including syringe exchange, fentanyl test strips, and naloxone, or to schedule an appointment: [place] clients call and leave a message for Isa (ext. 105) or Venkat Swain (ext. 104). [place] clients call to speak with Venkat Sanches Warning Illicit drugs do not come with an ingredients list. Many illicit drugs are laced with fentanyl and other drugs. Powdered fentanyl looks just like many other drugs. It is commonly mixed with drugs like heroin, cocaine, and methamphetamine and made into pills that are made to resemble other prescription opioids.Fentanyl-laced drugs are extremely dangerous, and many people may be unaware that their drugs are laced with fentanyl. Fentanyl itself is often laced with benzodiazepines (depressant) and Xylazine (seadative) ???benzo dope?tranq?? blackout dope which increases the risk of overdose and . Suboxone Emergency Override There is an emergency override requirement on all medications that require prior insurance authorization. If you experience any issues picking up your suboxone prescription at the pharmacy you may request an override. They are required to provide the quantity of suboxone sufficient for 72 hours while the prior insurance authorization is being approved. Online Stress Reduction Resources www.[employer]/videos-features/videos/myjqtxpqn-zzmyfriyh-5-7-8-breath/ www.WTFast.U.S. TrailMaps/2013/muarrmwqo-tuyixxpmh-aubfynz-moment/ www.Gdd Hcanalytics/ www.mindful.org/ www.CoDa Therapeutics.org/ Employment Agency Working [address] [place] [address] [phone] [email or web address] Providing an opportunity for successful employment and recovery by empowering individuals to managechallenges because of substance use addiction and past convictions. * Patient Instructions* Bc Cunningham MD - 08/14/2022 5:54 PM EST Instruction after leaving the hospital Why you were hospitalized: You came into the hospital for abdominal pain due to acute pancreatitis.During your hospitalization, your pain improved and you were able to tolerate food without difficulty. You may continue to use Dilaudid sparingly for severe pain. You may also continue to use Tylenoland ibuprofen for additional pain control. Please do not take lorazepam while taking Dilaudid, as taking these medications together can be dangerous. Please being taking the medication pantoprazole to decrease acid reflux. This will help your stomach heal from any damage caused by heavy alcohol use. For your alcohol use, please follow up with the resources provided below. Please discuss medications that can be used to decrease cravings with your primary doctor. Call your doctor or seek medical attention if you develop the following: Call your doctor or seek medical attention if you experience any alarming symptoms. This may include, but is not limited to, fever, chest pain, severe shortness of breath, nausea with vomiting, persistent decrease in your urinary output, severe pain, or any other concerning symptoms. Activity level: As tolerated. Diet: No new restrictions. Driving: Please do not drive if you feel lightheaded, dizzy, faint, or taking any opioids/narcotics(i.e oxycodone). It is advisable that you do not drive till you follow-up with your primary care physician. Shower/Bath: No new restrictions. Home Oxygen therapy: N/A Changes in Your Medications: New Medications: Dilaudid 2 mg every 6 hours as needed, pantoprazole 40 mg daily Medication dose changes: none Stop these medications: none Follow-Up Appointments Follow up with your primary doctor as previously scheduled Date and Time Provider and Specialty Location Need to be scheduled None , PCP None None Your Inpatient Doctor(s) at [facility]: Bc Cunningham MD Your Primary Care Provider: None None None For questions regarding this document or issues relating to this hospitalization on the Medical Service, please contact your inpatient physician through the [facility] . Issues afterhours and on weekends will be handled by the Hospitalist staff on-call. documented in this encounter Medications at Time of Discharge Medication Sig Dispensed Refills Start Date End Date citalopram (CeleXA) 20 mg Tablet Take 20 mg by mouth nightly. 07/10/2022 cloNIDine (Catapres) 0.1 mg Tablet Take 0.1 mg by mouth 3 times daily as needed. 07/23/2022 gabapentin (NEURONTIN) 600 mg Tablet Take 600 mg by mouth every morning. 07/31/2022 gabapentin (NEURONTIN) 800 mg Tablet Take 800 mg by mouth nightly. 07/31/2022 mirtazapine (Remeron) 15 mg Tablet Take 15 mg by mouth nightly. 08/02/2022 LORazepam (Ativan) 0.5 mg Tablet Take 0.5 mg by mouth daily as needed for Anxiety. pantoprazole EC (Protonix) 40 mg Tablet, Delayed Release (E.C.) Take 1 tablet by mouth daily. 30 tablet 08/15/2022 HYDROmorphone (Dilaudid) 2 mg Tablet Take 1 tablet by mouth every 6 hours as needed for Pain (for mild pain (1-3)). 12 tablet 08/14/2022 documented as of this encounter Progress Notes * Brenna Mendoza RN - 08/14/2022 6:03 PM EST Matthew Lewis discharged to Home by private car with Family member. All belongings sent with patient. CARLOS removed, skin free from pressure ulcers. Discharge instructions, medications, and follow-up appointments reviewed, education provided on appendicitis, e-scripts sent, all questions answered. Jose reyes instructed to call with concerns. * Bc Cunningham MD - 08/14/2022 5:45 PM EST Hospital Medicine - Attending Day of Discharge Documentation Discharge diagnosis Active Hospital Problems Diagnosis ??? Acute pancreatitis Resolved Hospital Problems No resolved problems to display. Secondary Issues There are no active non-hospital problems to display for this patient. I have personally seen and examined the patient and they are ready for discharge. I spent >30 minutes (Day of Discharge Code 47874) involved in the final examination of the patient, discussion of the hospital stay, instructions for continuing care to all relevant caregivers, and preparation of discharge records, prescriptions and referral forms. Plans ? Discharge to home ? Follow-up scheduled with PCP ? Please see the Discharge Summary for complete details of any medication changes and additional plans. * Bc Cunningham MD - 08/13/2022 4:15 PM EST Hospital Medicine Attending Daily Progress Note Admit Date: 08/11/2022 Hospital Day 1 day Active Hospital Problems Diagnosis ??? Acute pancreatitis Resolved Hospital Problems No resolved problems to display. PM There are no active non-hospital problems to display for this patient. Inpatient Medications: Scheduled ? ? potassium, sodium phosphates 1.5 g Oral 4 Times Daily WC & HS ??? pantoprazole EC 40 mg Oral Daily ??? acetaminophen 975 mg Oral Q8H ??? citalopram 20 mg Oral Nightly ??? cloNIDine 0.1 mg Oral Nightly ??? mirtazapine 15 mg Oral Nightly ??? gabapentin 600 mg Oral Daily ??? gabapentin 800 mg Oral Nightly ??? sodium chloride 0.9 % (flush) 5 mL Intravenous BID ??? enoxaparin 40 mg Subcutaneous Nightly ??? melatonin 6 mg Oral Nightly ??? thiamine 100 mg Oral Daily ??? folic acid 1,000 mcg Oral Daily ??? nicotine 1 patch Transdermal Daily And ??? Patch Verification 1 patch Transdermal BID Continuous infusions: ??? lactated Ringers 150 mL/hr (08/13/22 1223) PRN: ibuprofen, HYDROmorphone OR HYDROmorphone OR HYDROmorphone, nicotine polacrilex, sodium chloride 0.9 % (flush), lidocaine, ondansetron OR ondansetron, prochlorperazine OR prochlorperazine, cloNIDine, hydrOXYzine Interval History: - no acute overnight events - he notes ongoing abdominal pain that is severe with movement and focused primary around his left flank. This pain is not worse with eating. He has been tolerating foods and denies any nausea or vomiting. He last had a bowel movement the morning of 08/12 ROS: negative except as noted above Physical Exam Vitals Range last 24 hrs Temperature Temp: [36.6 ??C (97.9 ??F)-37.1 ??C (98.8 ??F)] Heart Rate Heart Rate: [87-92] Blood Pressure BP: (135-149)/(83-103) Respiratory Rate Resp: [16-18] SpO2 SpO2: [95 %-98 %] Intake/Output Summary (Last 24 hours) at 08/13/2022 1615 Last data filed at 08/13/2022 1230 Gross per 24 hour Intake 3512.5 ml Output -- Net 3512.5 ml Patient Vitals for the past 168 hrs: Weight 08/11/22 1147 78.9 kg (174 lb) Body mass index is 28.96 kg/m??. GEN: well nourished man, no acute distress, lying in bed HEENT: MMM CARDS: RRR, no murmur PULM: CTAB posterior lung cosme without wheeze or rales ABD: soft throughout. Tenderness worst in the epigastrium with mild tenderness in the LUQ and LLQ EXT: no LE edema SKIN: no rash NEURO: awake and alert with logical answers to questions. No visible tremor Studies reviewed in eDH. Remarkable for the following: LABS: Last 3 wbc, hgb, hct plt Recent Labs 08/13/22 0649 08/12/22 0055 08/11/22 1633 WBC 14.5* 12.0* 13.9* HGB 10.7* 10.2* 10.9* HCT 31.7* 29.1* 30.9* PLATELET 410* 271 289 Last 3 Lytes Recent Labs 08/13/22 0649 08/12/22 0055 08/11/22 1633 NA 134* 133* 134* K 3.6 3.0* 3.2* CL 97* 97* 96* CO2 27 24 25 BUN 4* 3* 5* CREATININE 0.52* 0.53* 0.61* Last 3 LFTs Recent Labs 08/13/22 0649 08/11/22 1633 AST 37 66* ALT 33 49 ALKPHOS 94 118 BILITOT 0.4 0.7 BILIDIR 0.1 -- FSBG Trend No results for input(s): POCGLU in the last 72 hours. MICRO: No results for input(s): URINECULTURE in the last 720 hours. No results for input(s): GRAMSTAIN, BFCX, LOWERRESPCX, TISSUECX in the last 720 hours. No results for input(s): BLOODCX in the last 720 hours. ECG: Recent Labs 08/11/22 1602 DIAGLINE Normal sinus rhythm Nonspecific T wave abnormality Abnormal ECG No previous ECGs available Confirmed by Chriss Xiao MD ([id number]) on 08/12/2022 2:07:30 PM QTCCALC 442 VASCULAR: No results for input(s): VBTEXTRPT in the last 720 hours. IMAGING: Results for orders placed or performed during the hospital encounter of 08/11/22 CT Abdomen & Pelvis w Contrast (Exam End: 08/11/2022 5:49 PM) Impression Acute interstitial edematous pancreatitis with acute peripancreatic fluid collection. Thank you for letting us participate in the care of this patient. If you are a health care provider and have any questions regarding this report, please contact the number below. For patients who have questions please contact the health assurance services manager health care that requested your imaging first. Assessment: Matthew Lewis is a 22 year old man with hx of HTN, generalized anxiety and recent admission to [facility] for acute pancreatitis due to alcohol and hypertriglyceridemia who presented for [place] [facility] [place]/nausea/vomiting and was found to have CT findings of ongoing acute pancreatitis. ?? #acute pancreatitis: as his symptoms started nearly a week ago and there are no obvious signs of complications on CT imaging from 08/11/22, his ongoing symptoms are most likely to represent slow to resolve pancreatitis rather than a new process. His risk of worsening clinical status is low and he appears euvolemic on exam. Triglycerides < 500 on 08/12/22 - continue LR at 150 ml/hr today. Monitor volume status and urine output - continue PO dilaudid, standing Tylenol. Add PRN ibuprofen today - zofran/compazine PRN for nausea - full liquid diet for now - hold gemfibrozil for now, would restart at discharge #suspicion for alcohol-related gastritis: he reports several months of burning abdominal pain and reflux prior to his acute presentation - continue PPI ?? #alcohol use disorder: last drink Sunday 08/06; s/p detox at [facility]; patient denies any feeling of withdrawal at this time - consider BIT team consult for resources for substance use disorder; also may benefit from formal psych consult regarding anxiety/insomnia medications - will discuss resources for alcohol use disorder once abdominal pain improves - continue folate and thiamine PO daily #generalized anxiety and insomnia - continue citalopram daily - continue mirtazapine 15 mg nightly - continue clonidine nightly - hold home lorazepam 0.5 mg PO PRN for now - start hydroxyzine 25 mg TID PRN for anxiety #tobacco use: nicotine patch #history of post-operative testicular nerve damage: continue gabapentin 600 mg in AM and 800 mg nightly #anemia: stable, mild. Iron studies difficult to interpret in the setting of systemic inflammation from pancreatitis - ensure outpatient follow up DIET: full liquid ACCESS: PIV LINES/TUBES: none Ppx: LMWH CODE: full LABS: daily DISPO: home pending improvement in abdominal pain, ability to take PO Team Pager(MD Coverage 25/02): #[phone] PCP: None None Attestation: IPI Certification I certify that I am a D-H credentialed attending provider with admitting privileges and that the patient meets or has met medical necessity to require an inpatient IPI level of care meeting a minimumof two midnights or is on the [facility] inpatient only procedure list (status C) due to: monitoring of fluid status given an inability to regulate fluid balance and the need for administration or restriction of fluids, inability to take in food or drink by mouth requiring IV fluids and anti-emetics Bc Cunningham MD 08/13/2022 * Vanita Fields RN - 08/13/2022 2:11 AM EST OUTCOME EVALUATION NOTE: OUTCOME SUMMARY: Patient A&Ox4, able to make needs known, pain managed with prn dilaudid. Independent in room. Showered. PRN atarax given for anxiety. IVF running. Patient resting in bed with call light in reach. PLAN MOVING FORWARD: Manage pain Advance diet DC planning INDIVIDUALIZED FALL PREVENTION INTERVENTIONS: Patient-specific fall risk factors per assessment: [current deficits]: Hospital environment, pain, IV pole Assistance [level of assistance required for transfers and ambulation]: SBA Supervision [direct monitoring required during toileting and ADLs]: Eyes on Surveillance [continuous indirect monitoring]: purposeful roundingalono Patient-specific fall prevention interventions for sensory deficits provided, if applicable:NA CARE PLAN GOAL OUTCOME EVALUATION: * Bc Cunningham MD - 08/12/2022 8:57 AM EST Hospital Medicine Attending Daily Progress Note Admit Date: 08/11/2022 Hospital Day 0 days Active Hospital Problems Diagnosis ??? Acute pancreatitis Resolved Hospital Problems No resolved problems to display. PMH There are no active non-hospital problems to display for this patient. Inpatient Medications: Scheduled ? ? potassium, sodium phosphates 1.5 g Oral 4 Times Daily WC & HS ??? pantoprazole EC 40 mg Oral Daily ??? citalopram 20 mg Oral Nightly ??? cloNIDine 0.1 mg Oral Nightly ??? mirtazapine 15 mg Oral Nightly ??? gabapentin 600 mg Oral Daily ??? gabapentin 800 mg Oral Nightly ??? sodium chloride 0.9 % (flush) 5 mL Intravenous BID ??? enoxaparin 40 mg Subcutaneous Nightly ??? melatonin 6 mg Oral Nightly ??? thiamine 100 mg Oral Daily ??? folic acid 1,000 mcg Oral Daily ??? nicotine 1 patch Transdermal Daily And ??? Patch Verification 1 patch Transdermal BID Continuous infusions: ??? lactated Ringers 150 mL/hr (08/11/222222) PRN: HYDROmorphone, sodium chloride 0.9 % (flush), lidocaine, acetaminophen, ondansetron OR ondansetron, prochlorperazine OR prochlorperazine, cloNIDine, hydrOXYzine Interval History: - admitted to hospital medicine overnight - this morning he reports that his abdominal pain remains present but is overall improved. The painis worse in the LLQ and is not worse with eating. He has been urinating his normal volume without difficulty and denies vomiting ROS: negative except as noted above Physical Exam Vitals Range last 24 hrs Temperature Temp: [36.8 ??C (98.2 ??F)-37.4 ??C (99.4 ??F)] Heart Rate Heart Rate: [92-105] Blood Pressure BP: (129-172)/(69-107) Respiratory Rate Resp: [18-40] SpO2 SpO2: [96 %-100 %] Intake/Output Summary (Last 24 hours) at 08/12/2022 0899 Last data filed at 08/12/2022 0525 Gross per 24 hour Intake 2890 ml Output -- Net 2890 ml Patient Vitals for the past 168 hrs: Weight 08/11/22 1147 78.9 kg (174 lb) Body mass index is 28.96 kg/m??. GEN: well nourished man, no acute distress, lying in bed HEENT: MMM CARDS: mildly tachycardic, RRR, no murmur PULM: CTAB posterior lung cosme without wheeze or rales ABD: soft throughout. Tenderness worst in the epigastrium with mild tenderness in the LUQ and LLQ EXT: no LE edema SKIN: no rash NEURO: awake and alert with logical answers to questions. No visible tremor Studies reviewed in eDH. Remarkable for the following: LABS: Last 3 wbc, hgb, hct plt Recent Labs 08/12/22 0055 08/11/22 1633 WBC 12.0* 13.9* HGB 10.2* 10.9* HCT 29.1* 30.9* PLATELET 271 289 Last 3 Lytes Recent Labs 08/12/22 0055 08/11/22 1633 NA 133* 134* K 3.0* 3.2* CL 97* 96* CO2 24 25 BUN 3* 5* CREATININE 0.53* 0.61* Last 3 LFTs Recent Labs 08/11/22 1633 AST 66* ALT 49 ALKPHOS 118 BILITOT 0.7 FSBG Trend No results for input(s): POCGLU in the last 72 hours. MICRO: No results for input(s): URINECULTURE in the last 720 hours. No results for input(s): GRAMSTAIN, BFCX, LOWERRESPCX, TISSUECX in the last 720 hours. No results for input(s): BLOODCX in the last 720 hours. ECG: Recent Labs 08/11/22 1602 DIAGLINE Normal sinus rhythm Nonspecific T wave abnormality Abnormal ECG No previous ECGs available QTCCALC 442 VASCULAR: No results for input(s): VBTEXTRPT in the last 720 hours. IMAGING: Results for orders placed or performed during the hospital encounter of 08/11/22 CT Abdomen & Pelvis w Contrast (Exam End: 08/11/2022 5:49 PM) Impression Acute interstitial edematous pancreatitis with acute peripancreatic fluid collection. Thank you for letting us participate in the care of this patient. If you are a health care provider and have any questions regarding this report, please contact the number below. For patients who have questions please contact the health assurance services manager health care that requested your imaging first. Electronically signed by: Sanam Ahumada MD, [facility] ([phone]), at 08/11/2022 6:18 PM Assessment: Matthew Lewis is a 22 year old man with hx of HTN, generalized anxiety and recent admission to [facility] for acute pancreatitis due to alcohol and hypertriglyceridemia who presented for [place] [facility] [place]vomiting and was found to have CT findings of ongoing acute pancreatitis. ? #acute pancreatitis: as his symptoms started nearly a week ago and there are no obvious signs of complications on CT imaging from 08/11/22, his ongoing symptoms are most likely to represent slow to resolve pancreatitis rather than a new process. His risk of worsening clinical status is low and he appears euvolemic on exam. Triglycerides < 500 on 08/12/22 - continue LR at 150 ml/hr today. Monitor volume status and urine output - replace SQ dilaudid with PO dilaudid and tylenol - zofran/compazine PRN for nausea - clear liquid diet advance as tolerated - hold gemfibrozil for now, would restart at discharge #suspicion for alcohol-related gastritis: he reports several months of burning abdominal pain and reflux prior to his acute presentation - continue PPI ?? #alcohol use disorder: last drink Sunday 08/06; s/p detox at [facility]; patient denies any feeling of withdrawal at this time - consider BIT team consult for resources for substance use disorder; also may benefit from formal psych consult regarding anxiety/insomnia medications - will discuss resources for alcohol use disorder once abdominal pain improves - continue folate and thiamine PO daily #generalized anxiety and insomnia - continue citalopram daily - continue mirtazapine 15 mg nightly - continue clonidine nightly - hold home lorazepam 0.5 mg PO PRN for now - start hydroxyzine 25 mg TID PRN for anxiety #tobacco use: nicotine patch #history of post-operative nerve damage: continue gabapentin 600 mg in AM and 800 mg nightly #anemia: stable, mild. Iron studies difficult to interpret in the setting of systemic inflammation from pancreatitis - ensure outpatient follow up DIET: clear liquid ACCESS: PIV LINES/TUBES: none Ppx: LMWH CODE: full LABS: daily DISPO: home pending improvement in abdominal pain, ability to take PO Team Pager(MD Coverage 25/02): #[phone] PCP: None None Attestation: IPI Certification I certify that I am a D-H credentialed attending provider with admitting privileges and that the patient meets or has met medical necessity to require an inpatient IPI level of care meeting a minimumof two midnights or is on the [facility] inpatient only procedure list (status C) due to: monitoring of fluid status given an inability to regulate fluid balance and the need for administration or restriction of fluids, inability to take in food or drink by mouth requiring IV fluids and anti-emetics Bc Cunningham MD 08/12/2022 documented in this encounter H&P Notes * Ludivina Foss MD - 08/11/2022 6:53 PM EST Images from the original note were not included. Hospital Medicine Admission History and Physical Patient Name: MATTHEW LEWIS Date of : 2000 Age: 22 y.o. Hospital Admit Date: 08/11/2022 Inpatient Attending: Ludivina Foss MD PCP: None Presenting Diagnosis/Chief Complaint: abd pain and n/v/acute pancreatitis History of Present Illness: Matthew Lewis is a 22 y.o. male with hx of HTN, generalized anxiety and recent admission to [facility] for acute pancreatitis due to alcohol and hypertriglyceridemia [facility] [place] [facility] and CT findings of ongoing acute pancreatitis. History obtained from patient and chart review. Patient relates that he had been drinking more heavily that usual for about two weeks when he developed abd pain, N/V and presented to [facility] on 08/07. On arrival there his labs showed elevated lipase [id number], WBC of 21,000, Hgb of 18 and triglycerides of 1400. He was treated for acute pancreatitis with IV fluids and an insulin drip as well as a CIWA scale with lorazepam for alcohol withdrawal. Unfortunately patient was unable to remain in hospital due to his anxiety and left AMA on 08/10. He was discharged on a clonazepam taper, as well as thiamine and given a prescription for gemfibrozil which hehasn't filled. Since discharge home he has not been able to tolerate any food or drink and was not able to take his AM meds due to nausea. He had ongoing severe abdominal pain as well which led him to present to the [facility] [place] for further eval and treatment. In regards to his alcohol use patients states that he has been drinking most of his life and his dad is a nasty alcoholic and he doesn't want to that to be his future. After this event he states heno longer wants to drink anymore and wants help staying sober. His reasons for drinking are his anxiety and his insomnia (trouble falling asleep due to generalized worry about all things), both of which he says worsened when he had a mental breakdown at the end 2019 (this was not explored any further during this interview). He has been treated with multiple meds for his insomnia for the past6 months none of which have been very helpful (ambien, trazodone, quetiapine and recently restartedon mirtazapine). He has never tried cognitive behavioral [facility] for insomnia or [facility]. He is willing to try anything to help his anxiety, insomnia and alcohol use. He uses nicotine in the form of a vape pen. He had previously smoked but has stopped due to cigarettes making him nauseous. He is interested in nicotine replacement patch while admitted. He denies fevers, chills, nasal congestion, chest pain, new rash, LE edema or difficulty breathing. He does relate diarrhea since yesterday 3 x, large volume, racing to the toilet. In the ED patient was tachycardic and hypertensive, WBC elevated to 13.9, anemia with Hgb of 10.9, mild hyponatremia of 134 and hypokalemia of 3.2 and nl lipase and liver enzymes with the exception of slightly elevated AST of 66. Urine drug screen positive for barbiturates and urinalysis significant for ketones >80. Ethanol level <100. CT abd/pelvis obtained showing acute interstitial edematous pancreatitis with peripancreatic fluid collection. Given his inability to tolerate PO, intractable abdominal pain, nausea and vomiting and clear signs of dehydration on labs hospital medicine wascalled to admit. Review of Systems(Positives in Bold): General: fevers, chills, night sweats; recent weight changes; fatigue EENT: changes in vision; changes in hearing; rhinorrhea, congestion, sinus pain, sore throat Cardiovascular: chest pain; palpitations; dizziness or lightheadedness, edema Respiratory: SOB, LOPEZ , cough,wheeze GI: abdominal pain; nausea, vomiting, diarrhea, or constipation, blood in stool : dysuria; urgency, frequency, hesitancy Musculoskeletal: muscle or joint pain Endocrine: heat or cold intolerace; polyuria/polydipsia Heme: easy bruising or bleeding Neuro: headaches; numbness or tingling; weakness;incoordination Psych: mood good Past Medical History: History reviewed. No pertinent past medical history. There is no problem list on file for this patient. Past Surgical History: History reviewed. No pertinent surgical history. Social History: Social History Socioeconomic History ??? Marital status: Single Spouse name: Not on file ??? Number of children: Not on file ??? Years of education: Not on file ??? Highest education level: Not on file Occupational History ??? Not on file Tobacco Use ??? Smoking status: Not on file ??? Smokeless tobacco: Not on file Substance and Sexual Activity ??? Alcohol use: Not on file ??? Drug use: Not on file ??? Sexual activity: Not on file Other Topics Concern ??? Not on file Social History Narrative ??? Not on file Social Determinants of Health Financial Resource Strain: Not on file Food Insecurity: Not on file Transportation Needs: Not on file Physical Activity: Not on file Housing Stability: Not on file Family History: Alcohol abuse- father (and several of relatives on father's side of family). No family history or pancreatitis Allergies: No Known Allergies Medications: Gabapentin PHYSICAL EXAM: Last value Range last 24 hrs Temperature Temp: 37.4 ??C (99.4 ??F) Temp: [37.4 ??C (99.4 ??F)] Heart Rate Heart Rate: 99 Heart Rate: [97-103] Blood Pressure BP: (!) 157/99 BP: (156-157)/(88-99) Respiratory Rate Resp: 18 Resp: [18] SpO2 SpO2: 99 % SpO2: [96 %-100 %] No intake/output data recorded. Gen: Alert & oriented x3, uncomfortable, anxious HEENT: EOMI, anicteric, dry lips and MM CV: Regular, tachycardic, no appreciable murmurs; Pulm: Normal respiratory effort, CTA with good air entery bilaterally, no rales/rhonchi/wheezes Abd: +BS, distended, tender to light palpation throough Ext: No pedal edema Neuro: Grossly intact, moving all four extremities. Skin: Warm, dry, no rashes Psych: Anxious, speech clear with normal tone LABS: Recent Labs 08/11/22 1633 WBC 13.9* HGB 10.9* HCT 30.9* PLATELET 289 Recent Labs 08/11/22 1633 NA 134* K 3.2* CL 96* CO2 25 BUN 5* CREATININE 0.61* Recent Labs 08/11/22 1633 CALCIUM 8.6 No results for input(s): PT, PTT, FIBRINOGEN, DDIMER in the last 168 hours. Invalid input(s): THROMBIN TIME No results for input(s): INR in the last 168 hours. Recent Labs 08/11/22 1633 AST 66* ALT 49 ALKPHOS 118 BILITOT 0.7 No results for input(s): CK, TROPONINT in the last 168 hours. No results for input(s): LDH, URICACID in the last 168 hours. No results for input(s): TSH in the last 7068 hours. No results for input(s): HA1C in the last 7068 hours. Imaging/Diagnostics: CT Abdomen & Pelvis w Contrast Result Date: 08/11/2022 EXAMINATION: CT ABDOMEN AND PELVIS W CONTRAST CLINICAL HISTORY: Abdominal pain, acute, nonlocalized; Pancreatitis, acute, severe TECHNIQUE: Helical CT of the abdomen and pelvis was performed following the intravenous administration of contrast. Administered 105.0 ml of OMNIPAQUE 350.00 mg/ml. COMPARISON: None FINDINGS: Lower chest: Small simple bilateral pleural effusions. Liver: Hepatomegaly anddiffuse hepatic steatosis. Bile ducts: Not dilated. Gallbladder: Hypodense material within an otherwise normal distended gallbladder likely represents vicarious excretion of contrast. Pancreas: Enhancing engorged pancreas with extensive peripancreatic fluid that extends into the retroperitoneum andpelvis. No duct dilation. Spleen: Normal. Adrenals: Normal. Kidneys: Symmetric enhancement. No hydronephrosis. Vasculature: Normal abdominal aorta. No pseudoaneurysm. Patent splenic SMV and portal veins. Lymph Nodes: No enlarged lymph nodes. Bowel: No abnormal bowel dilation, wall thickening or surr ounding inflammatory change. Peritoneum: No free air. Moderate ascites. Abdominal wall: Normal. Urinary Bladder: Decompressed and normal. Reproductive organs: Normal. Osseous structures: No acute osseous findings. Acute interstitial edematous pancreatitis with acute peripancreatic fluid collection. Thank you forletting us participate in the care of this patient. If you are a health care provider and have any questions regarding this report, please contact the number below. For patients who have questions please contact the health assurance services manager health care that requested your imaging first. Electronically signed by: Sanam Ahumada MD, [facility] ([phone]), at 08/11/2022 6:18 PM ASSESSMENT and PLAN: Matthew Lewis is a 22 y.o. male with hx of HTN, generalized anxiety and recent admission to [facility] for acute pancreatitis due to alcohol and hypertriglyceridemia [facility] and CT findings of ongoing acute pancreatitis #acute pancreatitis #intractable nausea/vomiting - s/p 1 L NS bolus and some maintenance. Will stop NS given risk of NAGMA in high doses of IV NS. Bolus additional 1 L of LR now then start LR at 150 ml/hr. - SC hydromorphone 0.5 mg every 2 hours PRN overnight; if nausea improves overnight will start PO dosing in AM - zofran/compazine PRN for nausea - clear liquid diet advance as tolerated - recheck triglycerides with AM labs - hold gemfibrozil for now #alcohol use disorder #generalized anxiety #insomnia #tobacco use -last drink Sunday 08/06; s/p detox at [facility]; patient denies any feeling of withdrawal at this time - BIT team consult for resources for substance use disorder; also may benefit from formal psych consult regarding anxiety/insomnia medications - 1x IV lorazepam 1 mg now for ongoing nausea, significant anxiety while boarding in ED - continue citalopram daily - continue mirtazapine 15 mg nightly - continue gabapentin 600 mg in AM and 800 mg nightly - continue clonidine nightly - continue folate and thiamine PO daily - hold home lorazepam 0.5 mg PO PRN for now - nicotine patch daily - start melatonin 6 mg nightly prn - start hydroxyzine 25 mg TID PRN for anxiety #anemia - iron, tibc, ferritin, B12 and folate levels with AM labs #Housekeeping: - DVT PPx: enoxaparin starting 08/13 if still admitted - GI PPx: not indicated - Tobacco: if smoker advised to quit and provided with smoking cessation education and medications per patient preference - Diet: clear liquid - Level of care: wards - Vitals: every 4 hours - Code Satus: Full Code Ludivina Foss MD Hospital Medicine Pager [phone] documented in this encounter ED Notes * Gabby Black RN - 08/12/2022 6:08 AM EST Report given to Lewis LANG * Gabby Black RN - 08/12/2022 4:26 AM EST Pt is resting eyes closed, RR is unlabored at this time. Pt is appreciative and thankful for his care. Tearful at times discussing his history with drugs and alcohol. Pt given ample time to discuss his feelings which appeared to help. Pt would benefit from counseling. * Gabby Black RN - 08/12/2022 3:25 AM EST Hospital Medicine team provider at bedside assessing patient. * Gabby Black RN - 08/12/2022 3:15 AM EST Hospital Medicine team paged: concerns for increased pain, wheezing, and increased RR. * Gabby Black RN - 08/12/2022 2:31 AM EST Patient awoke with 10/10 abdominal pain, respirations are grunting with expiratory wheeze. RR 40. 02 99% on room air, BP 157/96, pt reports it feels like its going to explode pt medicated at this time with Dilaudid. * Gabby Black RN - 08/12/2022 2:16 AM EST Admitting team paged again: 1. Critical Lab results. 2. Elevated BP. No response from previous pageat [phone]. If no response will notify scheduled attending. * Gabby Black RN - 08/12/2022 12:32 AM EST Admitting team paged to make aware of elevated BP 129/107 * Isaak Murphy NRP - 08/11/2022 5:54 PM EST Patient back from CT now vomiting * Jono Carballo PA - 08/11/2022 3:26 PM EST ED Provider Note HPI: Matthew Lewis is a 22 y.o. male who presents emergency department with his mother. History is obtained both from the patient and his mother. He has a history of alcohol abuse. Reports he had been drinking very heavily over the past few weeks. Sometimes drinking 1/5 of hard liquor or multiple beers. He went into [facility] on August 07 because he was having increasing abdominal pains. He had diffuse abdominal pain at that time and nausea and vomiting. He was found tohave acute pancreatitis and evidence for alcohol withdrawal and was admitted to the hospital. His blood work was reviewed he had a initial white blood cell count of 21,000, hemoglobin of 18. His lipase was 3200. Subsequently was treated in their hospital with fluids and supportive care. CT scan also showed evidence of acute pancreatitis. Unfortunately he signed himself out AMA on August 10. He was discharged with clonazepam and vitamins and thiamine. Today his mother convinced him that he needed to go back to the emergency department. He has continued to have nausea and vomiting, reporting multiple episodes of vomiting today. He has been moving his bowels which also have been loose. Has diffuse abdominal pain more in the upper abdomen. This is been constant. He denies any fevers. He has been urinating. Has been taking some of the Klonopin occasionally for withdrawal symptoms. He denies any chest pains or trouble breathing. He does smoke cigarettes 1 pack daily, significant alcohol use as outlined above, history of oxycodone abuse in the past but not currently Patient's records from [facility] were reviewed ROS as per HPi Vitals: ED Triage Vitals [08/11/22 1147] BP: 157/88 Heart Rate: 97 Resp: 18 Temp: 37.4 ??C (99.4 ??F) Temp src: Tympanic SpO2: 96 % O2 Device: RA O2 Flow Rate (L/min): n/a Physical Exam Vitals and nursing note reviewed. Constitutional: General: He is not in acute distress. Comments: Mildly disheveled appearing young male HENT: Head: Normocephalic and atraumatic. Mouth/Throat: Pharynx: Oropharynx is clear. Comments: Speech is fluent Cardiovascular: Rate and Rhythm: Normal rate and regular rhythm. Heart sounds: No murmur heard. No friction rub. No gallop. Pulmonary: Effort: Pulmonary effort is normal. Breath sounds: Normal breath sounds. No wheezing, rhonchi or rales. Chest: Chest wall: No tenderness. Abdominal: General: Bowel sounds are normal. Comments: Abdomen is mildly distended, diffusely tender mostly in the upper abdomen with some guarding in the upper abdomen. Musculoskeletal: General: No swelling. Normal range of motion. Cervical back: Normal range of motion and neck supple. Skin: General: Skin is warm and dry. Findings: No rash. Neurological: General: No focal deficit present. Mental Status: He is alert and oriented to person, place, and time. Motor: No weakness. Coordination: Coordination normal. Comments: No significant tremors Psychiatric: Mood and Affect: Mood normal. ED Course: I have reviewed labs and imaging, images and available reports, CT Abdomen & Pelvis w Contrast (Results Pending) ED Course as of 08/11/22 1723 Sat Aug 11, 2022 1631 EKG was done at 4:02 PM and reviewed. This shows a sinus rhythm at 96. Normal axis. Normal intervals. Some nonspecific T wave abnormalities. No evidence for STEMI. No prior EKG available for comparison 1650 WBC(!): 13.9 1650 Hemoglobin(!): 10.9 1650 Platelets: 289 1709 Color UA: Yellow 1709 Appearance UA: Clear 1709 Leukocytes UA: Negative 1709 Nitrite UA: Negative 1709 Blood UA(!): Moderate 1709 RBC UA(!): 45 1709 WBC UA: 1 1709 Ethanol Lvl: <100 1713 Sodium(!): 134 1713 Chloride(!): 96 1713 CO2: 25 1713 Creatinine(!): 0.61 1713 BUN(!): 5 1713 Glucose Lvl: 120 1713 AST(!): 66 1713 ALT: 49 1713 Alk Phos: 118 1713 Total Bilirubin: 0.7 1713 Lipase: 46 1723 U Barbiturates Screen(!): Presumptive Pos 1723 U Methadone Metabolites Screen: None Detected 1723 U Cocaine Screen: None Detected 1723 U Oxycodone Screen: None Detected Assessment and Plan: 22 y.o. male with history of alcohol abuse. He admits that he drinks beer or hard liquor up to 1/5 of hard liquor daily. Is been going on for some time. Unfortunately he developed abdominal pain and nausea and vomiting presented to [facility] August 07. He was admitted there with evidence for alcohol withdrawal as well as pancreatitis by CT and elevated lipase. He subsequently stayed in the hospital until August 10 when he signed out AMA. He has been home. His mother convinced him to come to today for reevaluation. Here in the emergency department he reports he is vomited multiple times today. He has been taking the Klonopin which they gave him for withdrawal symptoms. His vital signs are actually quite stable. He does not show signs of significant tremors. He does however have significant abdominal pain on my exam. He seems somewhat distended and tender mostly in the upper abdomen. We will get repeat labs, lipase, CT abdomen. We will give him someIV fluids and Zofran. We will also get an EKG we will reevaluate following this but I am concerned he will likely need to be admitted 5:20 PM-patient was reevaluated he is still complaining significant pain in the abdomen. Is still nauseous but has not vomited here. He was told his blood work actually looks pretty good. His white blood cell count is elevated but his liver functions and lipase are normal. His alcohol level is negative as well. CT scan is still pending. We will give him some more nausea medicine, Reglan and some p ain medicine. CT scan is still pending. 5:35 PM-patient be signed out to my colleague at change of my shift JOSE Nixon Final diagnosis #1 abdominal pain #2 recent pancreatitis #3 alcohol abuse [address] pending CT and reevaluation Jono Carballo PA 08/11/22 1737 documented in this encounter Miscellaneous Notes * Care Management Discharge - Yessi Glass RN - 08/14/2022 12:31 PM EST CARE MANAGEMENT FINAL DISCHARGE NOTE Chart reviewed, care reviewed with primary team and at interdisciplinary rounds. Patient is medically ready for discharge to home. Needs for Transition of Care: Plan for discharge is: Home w/o Services Outpatient Agency/Support Group Needs: Substance abuse treatment Agency Referrals & Follow-up Care:N/A Transportation: family or friend will provide Wheelchair van/Ambulance? No Functional status prior to admission: Independent Home Environment: Others in the home: pet(s) (Dog). Current Living Arrangements: home/apartment/condo. Accessibility Concerns:No concerns. Current Functional Ability: Independent DME used at home: none DME Needed at Discharge: N/A Patient is insured through: Primary Insurance: [place] Payor[place] / Plan: [place] / Product Type: *No Product type* / Secondary Insurance: N/A Prescription Coverage: This plan was formulated with input from patient and team. All are in agreement with plan. Yessi Glass RN, BSN, ZAKIA Manager Of Training And Development Pager [phone] * Consult Note - Manisha Amezcua - 08/14/2022 10:50 AM EST BIT Evaluation Referral source: Follow up Reason for referral: Recovery support Relevant history: Matthew was sitting up in bed when RC arrived in his room. He explained that he was feeling a lot better today and is hoping to DC to his mothers house today. RC dropped off a packet for SMART recovery paperwork. During their conversation Matthew was able to identify a few more support people, some of whom have reached out to him while he has been in the hospital. He planning on connecting with a friend who has 6 years of sobriety from alcohol when he returns home. He is also planning on taking with his PCP about managing his anxiety at his appointment on Saturday. He maintains that he is confident he will no drink again, but was thankful for the resources. He is also starting to think about therapy, but not quite ready to take the next step at this time. RC left some resources in DC summary for when he is ready. Assessment: Matthew was welcoming and friendly. He was thankful for the support he has received throughout this hospitalization. He plans to look into the SMART recovery program and attend online AA/NA/recovery meetings when he returns home. He was able to identify multiple supports, and states he is motivated tonever drink again. He plans to take down RC number and reach out if he needs any other resources after DC. Interventions delivered: Other: Peer Support Plan: RC will continue to follow patient for duration of admission. RC will continue to be available to patient via phone after DC Time spent with the patient (min):30 minutes Time spent on case coordination (min): 15 minutes * Plan of Care - Blake Gibbs RN - 08/14/2022 4:15 AM EST OUTCOME EVALUATION NOTE: OUTCOME SUMMARY: VSS, pain still high, medicating with ibuprofen, tylenol and Dilaudid 4mg. Pt tolerated toast overnight. Reg diet ordered. No c/o GI/. Ind in room. PLAN MOVING FORWARD: LR @150. Trial Regular diet today Possible d/c home INDIVIDUALIZED FALL PREVENTION INTERVENTIONS: Patient-specific fall risk factors per assessment: [current deficits]: PIV attached to IV pole Assistance [level of assistance required for transfers and ambulation]: Ind Supervision [direct monitoring required during toileting and ADLs]: Bed in low position, call lightwithin reach, proactive rounding Surveillance [continuous indirect monitoring]: Eyes on Patient-specific fall prevention interventions for sensory deficits provided, if applicable: [X] N/A * Plan of Care - Brenna Mendoza RN - 08/13/2022 6:06 PM EST OUTCOME EVALUATION NOTE: OUTCOME SUMMARY: Pt remains A&Ox4, VSS, RA. Reports abdominal pain -03/14, educated pt on taking lower does of dilaudid as pain improves and utilizing ibuprofen, pt verbalized understanding. Pt remains on LR @ 150. Will continue to monitor. PLAN MOVING FORWARD: Q4 Vitals Pain management D/C planning INDIVIDUALIZED FALL PREVENTION INTERVENTIONS: Patient-specific fall risk factors per assessment: IV fluids/line, hospital environment, pain Assistance: Independent Supervision: Independent Surveillance: Bed locked in low position, call mcghee within reach, purposeful hourly rounding, clutter free environment, bed/chair alarm on, family at bedside Patient-specific fall prevention interventions for sensory deficits provided: N/A CPG GOAL OUTCOME EVALUATION: Continue care plan as documented. * Initial Assessments - Jigna Espinoza MSW - 08/13/2022 3:35 PM EST Office of Care Management Initial Assessment BRYANNA Mukherjee reviewed record and discussed patient with Care Team. Source of Information: Team, bedside nurse, medical record, and Patient Introduced self/reviewed role; services accepted. Reason for Hospitalization: Pancreantitis Covid Vaccination Status: Last COVID test: Past medical History: History reviewed. No pertinent past medical history. Hospitalizations Within the Past 30 Days: no previous admission in last 30 days Current Decision-Making Capacity: Self If AD's have not been completed the following surrogate would be surrogate decision maker per [place] surrogate decision making law. (Only good for 180 days) Elba Hawkins Any patient receiving care in [place] must abide by [place] law. The hierarchy for surrogate decision making is: (a) Patient???s spouse, or civil union partner or common law spouse unless there is a divorce proceeding, separation agreement, or restraining order limiting that person???s relationship with the patient. (b) Any adult son or daughter of the patient. (c) Either parent of the patient. (d) Any adult brother or sister of the patient. (e) Any adult grandchild of the patient. (f) Any grandparent of the patient. (g) Any adult aunt, uncle, niece, or nephew of the patient. (h) A close friend of the patient. (i) The agent with financial power of criminal defense attorney or a conservator appointed in accordance with RSA 464-A. (j) The guardian of the patient???s estate. Advance Care Planning: Attempt Cardiopulmonary Resuscitation - Inpatient <no information> -Advanced Directive: No, need to discuss Current Coping/Education/Information Needs: Pt is able to make needs known Current Functional Ability: Independent Functional Status Prior to Admission: Independent Prior ADLs & IADLs: Independent with all ADLs & IADLs Home Environment: Others in the home: pet(s) (Dog). Current Living Arrangements: home/apartment/condo. Accessibility Concerns:No concerns. Resource / Environmental Concerns: Resource/Environmental Concerns: financial Financial Concerns: other (see comments) (Pt has concerns regarding medical bills; states Medicaidis expensive. Has information on financial assistance/payment plans through . Inquired if pt hadapplied for food stamps and/or fuel assistance; pt declines resources at this time.) Current DME: none Home Address confirmed as: [address] [facility] [address] Social & Family Supports: All names listed below confirmed with patient as current and correct Extended Emergency Contact Information Primary Emergency Contact: Elba Hawkins Mobile Relation: Mother Secondary Emergency Contact: Hoa Lewis Mobile Relation: Father Current Care Provided by: self Provides Primary Care For: no one Caregiver if needed: parent(s) Quality of Family relationships: helpful, involved, supportive (Mother and aunt very supportive) Community Resources being provided currently: none Behavioral Health History: Hx of JORDAN Substance Use/Abuse confirmed: Social History Tobacco Use Smoking Status Every Day ??? Types: Cigarettes Smokeless Tobacco Never In the past year have you used an illegal drug or used a prescription medication for non-medical reasons?: No 0 No problems reported 1-2 Low level 3-5 Moderate level 6-8 Substantial level 9- 10 Severe level In the past year have you had 5 or more drinks a day containing alcohol?: Yes Audit Score (Male): 27 0 to 7 points: Low risk 8 to 15 points: Medium risk 16 to 19 points: High risk 20 to 40 points: Addiction likely Other Pertinent/Service Specific Information: Pt met with BIT team; BIT provided substance abuse treatment/alcohol treatment resources. Health/Prescription Coverage: Primary Insurance: [place] Pay[place] / Plan[place] / Product Type: *No Product type* / Secondary Insurance: N/A ; Prescription Coverage: Preferred Pharmacy: No Pharmacies Listed Status: Patient is a : No Primary Care Provider confirmed: None None Patient/Caregiver Goals of Treatment: Recover and return home. Pt states I'm never going to drink again. Potential Needs for Transition of Care: outpatient care (Pt to meet with PCP on Saturday this week; to discuss mental health treatment/meds with PCP) Agency Referrals: Not Applicable Transportation: no concerns Transportation Anticipated: family or friend will provide Concerns to be Addressed: denies needs/concerns at this time Assessment: Patient is admitted to hospital medicine service for acute pancreatitis Plan: Pt is a pleasant and cooperative 22 year old male who presented [facility] with ongoing severe abdominal pain and symptoms of alcohol withdrawal. Pt is motivated to address his alcohol use; states I'm never drinking again. Pt met with BIT team and was provided with treatment resources. INSIDE SALES ADVERTISING EXECUTIVE also directed pt to [facility] for financial resources. Pt aware that INSIDE SALES ADVERTISING EXECUTIVE and Care Management team are available to address any needs or concerns as they arise. A member of the Care Management team will continue to monitor progress, follow for continuity of care and assist with transition of care planning. BRYANNA Reilly, SUPERVISOR MOLD CLEANING AND STORAGE [employer] Office of Care Management Pager #[phone] * Consult Note - Manisha Amezcua - 08/13/2022 11:10 AM EST BIT Evaluation Referral source: Admission screening Reason for referral: Other: Follow up of AUDIT score Relevant history: Matthew was resting in bed when RC arrived. He woke when his name was called. RC introduced herself and her role. Matthew was open to taking. He states I know for a fact I will never drink again. He is feeling motivated by his health issues to not drink anymore and feels that now that he has made it through Detox he is confident in his sobriety. He has attended IOP, and AA meetings in the past but feels that he doesn't have tome for IOP or inpatient rehab at this time. He is interested in local andZoom recovery meetings. RC talked with him about SMART recovery and he is interested in the programas it is a more evidence/sience based approach to recovery. He was also interested in getting med re commendations for his anxiety. He does have a PCP appointment on Saturday and RC encouraged him to start that conversation with his PCP as they could help him on an outpatient level with his medications. He said that made sense and that he work with PCP on these issues. Assessment: Stephen was welcoming and friendly. He is highly motivated to pursue recovery. He plans to attend in person and Zoom recovery meetings. He was able to identify some personal supports. Interventions delivered: Other: Peer Support Plan: RC will continue to follow patient for duration of admission. RC will continue to be available to patient via phone after DC. Outstanding Discharge Needs: Not at this time Time spent with the patient (min):30 minutes Time spent on case coordination (min): 15 minutes * Plan of Care - Belkis Carver RN - 08/12/2022 5:56 PM EST Patient is AAOx4, BP and HR are a slightly elevated, medications given as ordered, see MAR. Complaints of acute pain to the left side of the abdomen. PO Dilaudid given however patient states it is not really helping and he doesn't like how he feels on it when he is sleeping or trying to sleep. Patient has been calm and cooperative. * Consult Note - Krissy Diaz RPH - 08/11/2022 9:01 PM EST TelePharmacy Home Medication List Update for Medication Reconciliation 08/11/22 9:01 PM Matthew Rick [place] 2000 No Known Allergies ??? Person Interviewed: patient ??? Quality of Interview/accuracy of medication list: good ??? Sources used to compile medication list: [x] Epic medication list [x] SureScripts [] PCP/Specialist list [] Retail pharmacy [] Patient list [] MAR [] Other ??? Changes made to home medication list: o Additions: - Lorazepam 0.5 mg po qday prn o Deletions: - None o Changes: - None ??? Additional Notes: Pt reports that he takes clonazepam 0.5 mg prn. Dispense hx and PDMP indicatethat pt actually takes lorazepam 0.5 mg. ??? Recommended changes: None. The home medication list is now updated to the best of my knowledge and is ready to be reconciled by the provider. Please contact the TelePharmacy Medication Reconciliation Pharmacist at for any questions. Krissy Diaz RPH documented in this encounter Plan of Treatment Not on file documented as of this encounter Procedures Procedure Name Priority Date/Time Associated Diagnosis Comments CT ABDOMEN AND PELVIS W CONTRAST Routine 08/14/2022 3:09 PM EST HC VENIPUNCTURE Routine 08/14/2022 9:21 AM EST DIFFERENTIAL, MANUAL Routine 08/14/2022 6:36 AM EST HEMOGRAM Routine 08/14/2022 6:36 AM EST HC CBC,PLT & AUTO DIFF Routine 6:36 AM EST BASIC METABOLIC PANEL Routine 08/14/2022 6:36 AM EST HEMOGRAM Routine 08/13/2022 6:49 AM EST DIFFERENTIAL, AUTOMATED Routine 08/13/2022 6:49 AM EST HC CBC,PLT & AUTO DIFF Routine 6:49 AM EST HEPATIC FUNCTION PANEL Routine 6:49 AM EST BASIC METABOLIC PANEL Routine 08/13/2022 6:49 AM EST HEMOGRAM Routine 08/12/2022 12:55 AM EST DIFFERENTIAL, AUTOMATED Routine 08/12/2022 12:55 AM EST HC IRON BINDING CAPACITY Routine 08/12/2022 12:55 AM EST HC CBC,PLT & AUTO DIFF Routine 12:55 AM EST HC TRIGLYCERIDES Routine 08/12/2022 12:5 5 AM EST HC PHOSPHORUS, SERUM Routine 08/12/2022 12:55 AM EST HC MAGNESIUM, SERUM Routine 08/12/2022 1 2:55 AM EST HC FOLATE, SERUM Routine 08/12/2022 12:5 5 AM EST HC FERRITIN, SERUM Routine 08/12/2022 12 :55 AM EST HC VITAMIN B12 SERUM Routine 08/12/2022 12:55 AM EST BASIC METABOLIC PANEL Routine 08/12/2022 12:[address] ABDOMEN AND PELVIS W CONTRAST STAT 08/11/2022 5:49 PM EST URINALYSIS MICROSCOPIC EXAM STAT 08/11/2022 4:35 PM EST RAPID DRUG SCREEN, URINE STAT 08/11/2022 4:35 PM EST RAPID DRUG SCREEN W/O CONFIRMATION, URINE STAT 08/11/2022 4:35 PM EST URINALYSIS WITH REFLEX CULTURE STAT 08/11/2022 4:35 PM EST SCAN, PERIPHERAL BLOOD STAT 4:33 PM EST HEMOGRAM STAT 08/11/2022 4:33 PM EST DIFFERENTIAL, AUTOMATED STAT 08/11/2022 4:33 PM EST HC CBC,PLT & AUTO DIFF STAT 4:33 PM EST HC LIPASE STAT 08/11/2022 4:33 PM EST HC ALCOHOL, BLOOD STAT 08/11/2022 4:3 3 PM EST COMPREHENSIVE METABOLIC PANEL STAT 08/11/2022 4:33 PM EST EKG 12-LEAD STAT 08/11/2022 4:02 PM EST documented in this encounter Results * CT Abdomen & Pelvis w Contrast (08/14/2022 3:09 PM EST) Anatomical Region Laterality Modality Abdomen, Pelvis Computed Tomogra phy Impressions 08/14/2022 5:08 PM EST 1. ??Acute interstitial pancreatitis with acute peripancreatic fluid collections. Extensive peripancreatic inflammation and fluid collections have increased marginally, however overall no major change. 2. ??Enlarging left pleural effusion and worsening left lower lobe atelectasis. 3. ??Hepatomegaly with diffuse hepatic steatosis. Thank you for letting us participate in the care of this patient. ??If you are a health care provider and have any questions regarding this report, please contact the number below. ??For patients who have questions please contact the health assurance services manager health care that requested your imaging first. ? Electronically signed by: Brionna Ribera MD, [facility] ([phone]), at 08/14/2022 5:08 PM Narrative 08/14/2022 5:08 PM EST EXAMINATION: CT ABDOMEN AND PELVIS W CONTRAST CLINICAL HISTORY: Pancreatitis, acute, severe acute pancreatitis with persistent pain and rising inflammatory markers. Eval for complication of acute pancreatitis TECHNIQUE: Helical CT of the abdomen and pelvis was performed following the intravenous administration of contrast. Administered 94.0 ml of OMNIPAQUE 350.00 mg/ml. Water was used for oral contrast. Dual phase imaging of the abdomen was performed. COMPARISON: 08/11/2022 FINDINGS: Lower chest: Trace right pleural effusion is unchanged. Small left pleural effusion has enlarged and there is worsening left lower lobe atelectasis. No basilar pericardial effusion. Liver: Enlarged to 21.4 cm with diffuse low-attenuation (40 Hounsfield units). The hepatic and portal veins are widely patent. No focal lesions. Bile ducts: No intrahepatic biliary dilatation. Poor visualization of common bile duct. Gallbladder: Decompressed. No calcified stones. No adjacent inflammation. Pancreas: The gland enhances throughout, with slight diffuse heterogeneity. No nonenhancing, necrotic segment. There is extensive peripancreatic fat stranding and fluid filling the lesser sac and extending throughout the left anterior pararenal space. This also extends into the root of the mesentery, surrounding mesenteric vascular structures. Slight interval increased extent of acute pancreatic fluid collections, however no major change. The fluid extends throughout the anterior pararenal space and into both paracolic gutters. Small volume free fluid located within the pelvic cul-de-sac is unchanged. Vasculature: No arterial pseudoaneurysm. Mild stenosis of the central splenic vein. Widely patent portal vein and SMV. Spleen: Normal. Adrenals: Normal. Kidneys: Normal. Urinary Bladder: Normal. Lymph Nodes: No enlarged lymph nodes. Bowel: Borderline dilated proximal small bowel may represent a sentinel ileus. No focal transition point. Normal terminal ileum. No colonic dilatation or wall thickening. Peritoneum and mesentery: No free intraperitoneal air. No loculated collection. Peripancreatic fluid collections as described above. Abdominal wall: Small fat-containing left inguinal hernia is unchanged. Reproductive organs: Normal. Osseous structures: No suspicious lytic or sclerotic osseous lesion. Procedure Note Brionna Ribera MD - 08/14/2022 EXAMINATION: CT ABDOMEN AND PELVIS W CONTRAST CLINICAL HISTORY: Pancreatitis, acute, severe acute pancreatitis with persistent pain and rising inflammatory markers.Eval for complication of acute pancreatitis TECHNIQUE: Helical CT of the abdomen and pelvis was performed followingthe intravenous administration of contrast. Administered 94.0 ml of FNNALNFLE399.00 mg/ml. Water was used for oral contrast. Dual phase imaging of the abdomenwas performed. COMPARISON: 08/11/2022 FINDINGS: Lower chest: Trace right pleural effusion is unchanged. Small leftpleural effusion has enlarged and there is worsening left lower lobe atelectasis.No basilar pericardial effusion. Liver: Enlarged to 21.4 cm with diffuse low-attenuation (40 Hounsfieldunits). The hepatic and portal veins are widely patent. No focal lesions. Bile ducts: No intrahepatic biliary dilatation. Poor visualization ofcommon bile duct. Gallbladder: Decompressed. No calcified stones. No adjacentinflammation. Pancreas: The gland enhances throughout, with slight diffuseheterogeneity. No nonenhancing, necrotic segment. There is extensive peripancreatic fatstranding and fluid filling the lesser sac and extending throughout the leftanterior pararenal space. This also extends into the root of the mesentery,surrounding mesenteric vascular structures. Slight interval increased extent ofacute pancreatic fluid collections, however no major change. The fluid extends throughout the anterior pararenal space and into both paracolic gutters.Small volume free fluid located within the pelvic cul-de-sac is unchanged. Vasculature: No arterial pseudoaneurysm. Mild stenosis of the centralsplenic vein. Widely patent portal vein and SMV. Spleen: Normal. Adrenals: Normal. Kidneys: Normal. Urinary Bladder: Normal. Lymph Nodes: No enlarged lymph nodes. Bowel: Borderline dilated proximal small bowel may represent a sentinelileus. No focal transition point. Normal terminal ileum. No colonic dilatation orwall thickening. Peritoneum and mesentery: No free intraperitoneal air. No loculatedcollection. Peripancreatic fluid collections as described above. Abdominal wall: Small fat-containing left inguinal hernia is unchanged. Reproductive organs: Normal. Osseous structures: No suspicious lytic or sclerotic osseous lesion. IMPRESSION 1. Acute interstitial pancreatitis with acute peripancreatic fluidcollections. Extensive peripancreatic inflammation and fluid collections haveincreased marginally, however overall no major change. 2. Enlarging left pleural effusion and worsening left lower lobeatelectasis. 3. Hepatomegaly with diffuse hepatic steatosis. Thank you for letting us participate in the care of this patient. If youare a health care provider and have any questions regarding this report,please contact the number below. For patients who have questions please contactthe health assurance services manager health care that requested your imaging first. Electronically signed by: Brionna Ribera MD, [facility]([phone]), at 08/14/2022 5:08 PM Bc Cunningham MD IMG CT ORDERABLES * Potassium (08/14/2022 9:21 AM EST) Pathologist [facility] [place] Potassium 4.3 3.5 - 5.0 mmol/L [facility] Comment: Please note: ??Patients with WBC >100,000 may have falsely elevated Potassium levels. ??For accurate Potassium quantification in these patients send serum separator tube (gold top) for subsequent determinations. ??Contact the Clinical Chemistry Laboratory if there are any questions. Blood 08/14/2022 9:21 AM EST 08/14/2022 9:31 AM EST Narrative Resulting Agency Comment Spec In Lab Bc Cunningham MD CHEMISTRY ORDERABLES [facility] [place] [address] * (ABNORMAL) Differential, Manual (08/14/2022 6:36 AM EST) Neutrophil % Manual 77 % [facility] Lymphocyte Manual 11 % [facility] Monocyte Manual 5 % [facility] Eosinophil Manual 4 % [facility] Metamyelocyte Manual 2 % [facility] Myelocyte Manual 1 % [facility] Neutrophil Absolute (ANC) - Manual 12.2(H) 1.7 - 6.1 x10(3)/mc L [facility] Neutrophil Absolute (ANC) - Automated 12.23(H) 1.70 - 6.10 x10(3)/mc L [facility] Lymph Absolute Manual 1.8 0.9 - 3.2 x10(3)/mc L [facility] Monocyte Absolute Manual 0.8 0.3 - 0.9 x10(3)/mc L [facility] Eos Absolute Manual 0.6(H) 0.0 - 0.4 x10(3)/ L [facility] [place] Absolute Manual 0.3(H) 0.0 - 0.0 x10(3)/mc L [facility] Myelo Absolute Manual 0.2(H) 0.0 - 0.0 x10(3)/mc L [facility] Total Cells Ct 100 [facility] Plat estimate Increased [facility] RBC Morphology Abnormal [facility] Tear Cell 1-5 /HPF [facility] Toxic Granulation Present [facility] Dohle Bodies Present [facility] Blood 08/14/2022 6:36 AM EST 08/14/2022 6:44 AM EST Narrative Resulting Agency Comment Spec In Lab Ludivina Foss MD HEMATOLOGY ORDERABLE S Performing Organization Address City/State/[facility] Co de Phone Number [facility] [place] [address] * (ABNORMAL) Hemogram (08/14/2022 6:36 AM EST) White Blood Cell 15.9(H) 4.0 - 9.5 x10(3)/mc L [facility] Red Blood Cell 3.48(L) 4.58 - 5.54 x10(6)/mc L [facility] Hemoglobin 11.5(L) 13.7 - 16.5 g/dL [facility] Hematocrit 34.4(L) 40.5 - 48.5 % [facility] Mean Cell Volume 98.9(H) 82.9 - 93.1 fL [facility] Mean Cell Hemoglobin 33.0(H) 27.5 - 32.1 pg [facility] Mean Cell Hemoglobin Concentration 33.4 32.0 - 35.7 g/dL [facility] Platelet 533(H) 145 - 357 x10(3)/mc L [facility] RDW Standard Deviation 46.9(H) 36.0 - 45.0 fL [facility] RDW coefficient of variation 13.2 11.4 - 13.8 % [facility] Mean Platelet Volume 9.2 7.6 - 12.9 fL [facility] NRBC% auto 0.0 % [facility] NRBC Absolute 0.000 0.000 - 0.000 x10(3)/mc L [facility] Blood 08/14/2022 6:36 AM EST 08/14/2022 6:44 AM EST Narrative Resulting Agency Comment Spec In Lab Ludivina Foss MD HEMATOLOGY ORDERABLE S [facility] [place] [address] * (ABNORMAL) Basic Metabolic Panel (non-fasting) (08/14/2022 6:36 AM EST) Glucose 111 65 - 199 mg/dL [facility] Comment:Diabetes: >=200 mg/d L plus symptoms Blood Urea Nitrogen 5(L) 10 - 20 mg/dL [facility] Creatinine 0.45(L) 0.80 - 1.50 mg/dL [facility] Sodium 136 135 - 145 mmol/L [facility] Potassium Not Perf 3.5 - 5.0 [facility] Comment: Unable to quantitate due to sample hemolysis. ??Sample redraw suggested. Called by: taryn, Read back by: Brenna Mendoza, Date/Time:08/14/22 07:23. Please note: ??Patients with WBC >100,000 may have falsely elevated Potassium levels. ??For accurate Potassium quantification in these patients send serum separator tube (gold top) for subsequent determinations. ??Contact the Clinical Chemistry Laboratory if there are any questions. Chloride 101 98 - 107 mmol/L [facility] Carbon Dioxide 23 22 - 31 mmol/L [facility] Anion Gap 12 5 - 15 mmol/L [facility] Calcium 8.9 8.5 - 10.5 mg/dL [facility] Est Glomerular Filtration Rate 151 >=60 mL/min/1. 73 m?? [facility] Comment: This patient's estimated GFR was calculated using the 2020 CKD-EPI equation. The estimated GFR can vary from the measured GFR by up to 30% in the absence of rapidly changing kidney function. Assessment of the estimated GFR is not appropriate when creatinine concentrations are rapidly changing. For clinical situations in which a more precise estimate of GFR is necessary, consider alternative methods of GFR estimation such as a 24-hour urine creatinine clearance. Assignment of CKD stage 1-5 for patients with an eGFR near the transition point between stages may be based on clinical assessment of muscle mass and symptoms in addition to eGFR. Blood 08/14/2022 6:36 AM EST 08/14/2022 6:44 AM EST Narrative Resulting Agency Comment Spec In Lab Ludivina Foss MD CHEMISTRY ORDERABLES [facility] [place] [address] * (ABNORMAL) Differential, Automated (08/13/2022 6:49 AM EST) Neutrophil % 54.4 % [facility] Neutrophil Absolute 7.88(H) 1.70 - 6.10 x10(3)/mc L [facility] Lymph % 15.5 % [facility] Lymphocytes Abs 2.2 0.9 - 3.2 x10(3)/mc L [facility] Monocyte % 15.1 % [facility] Monocyte Abs 2.2(H) 0.3 - 0.9 x10(3)/mc L [facility] Eos % 3.9 % [facility] Eosinophils Abs 0.6(H) 0.0 - 0.4 x10(3)/mc L [facility] Basophil % 1.0 % [facility] Baso Absolute 0.1 0.0 - 0.1 x10(3)/mc L [facility] Immature Gran % 10.10 % [facility] Comment: Immature granulocytes(IG's)percentage and absolute count will include metamyelocytes, myelocytes, and promyelocytes. Blood smears from CBCs yielding IG's will be scanned manually for concordance. If this scan disagrees with the automated IG or if promyelocytes are noted, a manual differential will be performed. Immature Gran Absolute 1.46(H) 0.00 - 0.04 x10(3)/ L [facility] Blood 08/13/2022 6:49 AM EST 08/13/2022 7:25 AM EST Narrative Resulting Agency Comment Spec In Lab Ludivina Foss MD HEMATOLOGY ORDERABLE S [facility] [place] [address] * (ABNORMAL) Hemogram (08/13/2022 6:49 AM EST) White Blood Cell 14.5(H) 4.0 - 9.5 x10(3)/mc L [facility] Red Blood Cell 3.30(L) 4.58 - 5.54 x10(6)/mc L [facility] Hemoglobin 10.7(L) 13.7 - 16.5 g/dL [facility] Hematocrit 31.7(L) 40.5 - 48.5 % [facility] Mean Cell Volume 96.1(H) 82.9 - 93.1 fL [facility] Mean Cell Hemoglobin 32.4(H) 27.5 - 32.1 pg [facility] Mean Cell Hemoglobin Concentration 33.8 32.0 - 35.7 g/dL [facility] Platelet 410(H) 145 - 357 x10(3)/mc L [facility] RDW Standard Deviation 45.4(H) 36.0 - 45.0 fL [facility] RDW coefficient of variation 13.0 11.4 - 13.8 % [facility] Mean Platelet Volume 9.1 7.6 - 12.9 fL [facility] NRBC% auto 0.0 % [facility] NRBC Absolute 0.000 0.000 - 0.000 x10(3)/mc L [facility] Blood 08/13/2022 6:49 AM EST 08/13/2022 7:25 AM EST Narrative Resulting Agency Comment Spec In Lab Ludivina Foss MD HEMATOLOGY ORDERABLE S Performing Organization Address [facility] de Phone Number [facility] [place] [address] * Hepatic Function Panel (08/13/2022 6:49 AM EST) Protein, Total 6.2 6.1 - 8.0 g/dL [facility] Albumin 3.4 3.2 - 5.2 g/dL [facility] Aspartate Aminotransferase 37 0 - 39 unit/L [facility] Alanine Aminotransferase 33 0 - 55 unit/L [facility] Alkaline Phosphatase 94 40 - 130 unit/L [facility] Bilirubin, Total 0.4 0.2 - 1.3 mg/dL [facility] Bilirubin, Direct 0.1 0.0 - 0.3 mg/dL [facility] Blood 08/13/2022 6:49 AM EST 08/13/2022 7:25 AM EST Narrative Resulting Agency Comment Spec In Lab Bc Cunningham MD CHEMISTRY ORDERABLES Performing Organization Address [facility] de Phone Number [facility] [place] [address] * (ABNORMAL) Basic Metabolic Panel (non-fasting) (08/13/2022 6:49 AM EST) Glucose 113 65 - 199 mg/dL [facility] Comment:Diabetes: >=200 mg/d L plus symptoms Blood Urea Nitrogen 4(L) 10 - 20 mg/dL [facility] Creatinine 0.52(L) 0.80 - 1.50 mg/dL [facility] Sodium 134(L) 135 - 145 mmol/L [facility] Potassium 3.6 3.5 - 5.0 mmol/L [facility] Comment: Please note: ??Patients with WBC >100,000 may have falsely elevated Potassium levels. ??For accurate Potassium quantification in these patients send serum separator tube (gold top) for subsequent determinations. ??Contact the Clinical Chemistry Laboratory if there are any questions. Chloride 97(L) 98 - 107 mmol/L [facility] Carbon Dioxide 27 22 - 31 mmol/L [facility] Anion Gap 10 5 - 15 mmol/L [facility] Calcium 8.8 8.5 - 10.5 mg/dL [facility] Est Glomerular Filtration Rate 144 >=60 mL/min/1. 73 m?? [facility] Comment: This patient's estimated GFR was calculated using the 2020 CKD-EPI equation. The estimated GFR can vary from the measured GFR by up to 30% in the absence of rapidly changing kidney function. Assessment of the estimated GFR is not appropriate when creatinine concentrations are rapidly changing. For clinical situations in which a more precise estimate of GFR is necessary, consider alternative methods of GFR estimation such as a 24-hour urine creatinine clearance. Assignment of CKD stage 1-5 for patients with an eGFR near the transition point between stages may be based on clinical assessment of muscle mass and symptoms in addition to eGFR. Blood 08/13/2022 6:49 AM EST 08/13/2022 7:25 AM EST Narrative Resulting Agency Comment Spec In Lab Ludivina Foss MD CHEMISTRY ORDERABLES [facility] [place] [address] * (ABNORMAL) Differential, Automated (08/12/2022 12:55 AM EST) Neutrophil % 46.1 % [facility] Neutrophil Absolute 5.52 1.70 - 6.10 x10(3)/mc L [facility] Lymph % 15.5 % [facility] Lymphocytes Abs 1.8 0.9 - 3.2 x10(3)/mc L [facility] Monocyte % 20.9 % [facility] Monocyte Abs 2.5(H) 0.3 - 0.9 x10(3)/mc L [facility] Eos % 3.8 % [facility] Eosinophils Abs 0.5(H) 0.0 - 0.4 x10(3)/mc L [facility] Basophil % 1.2 % [facility] Baso Absolute 0.1 0.0 - 0.1 x10(3)/mc L [facility] Immature Gran % 12.50 % [facility] Comment: Immature granulocytes(IG's)percentage and absolute count will include metamyelocytes, myelocytes, and promyelocytes. Blood smears from CBCs yielding IG's will be scanned manually for concordance. If this scan disagrees with the automated IG or if promyelocytes are noted, a manual differential will be performed. Immature Gran Absolute 1.49(H) 0.00 - 0.04 x10(3)/mc L [facility] Blood 08/12/2022 12:5 5 AM EST 08/12/2022 1:30 AM EST Narrative Resulting Agency Comment Spec In Lab Ludivina Foss MD HEMATOLOGY ORDERABLE S Performing Organization Address City/State/[facility] Co de Phone Number [facility] [place] [address] * (ABNORMAL) Hemogram (08/12/2022 12:55 AM EST) White Blood Cell 12.0(H) 4.0 - 9.5 x10(3)/mc L [facility] Red Blood Cell 3.12(L) 4.58 - 5.54 x10(6)/mc L [facility] Hemoglobin 10.2(L) 13.7 - 16.5 g/dL [facility] Hematocrit 29.1(L) 40.5 - 48.5 % [facility] Mean Cell Volume 93.3(H) 82.9 - 93.1 fL [facility] Mean Cell Hemoglobin 32.7(H) 27.5 - 32.1 pg [facility] Mean Cell Hemoglobin Concentration 35.1 32.0 - 35.7 g/dL [facility] Platelet 271 145 - 357 x10(3)/mc L [facility] RDW Standard Deviation 42.4 36.0 - 45.0 fL [facility] RDW coefficient of variation 12.7 11.4 - 13.8 % [facility] Mean Platelet Volume 9.1 7.6 - 12.9 fL [facility] NRBC% auto 0.3 % [facility] NRBC Absolute 0.030(H) 0.000 - 0.000 x10(3)/mc L [facility] Blood 08/12/2022 12:5 5 AM EST 08/12/2022 1:30 AM EST Narrative Resulting Agency Comment Spec In Lab Ludivina Foss MD HEMATOLOGY ORDERABLE S Performing Organization Address City/[facility]/ZIP Co de Phone Number [facility] [place] [address] * (ABNORMAL) Vitamin B12 (08/12/2022 12:55 AM EST) Vitamin B12 1,927(H) 232 - 1,245 pg/mL [facility] Blood 08/12/2022 12:5 5 AM EST 08/12/2022 1:30 AM EST Narrative Resulting Agency Comment Spec In Lab Ludivina Foss MD CHEMISTRY ORDERABLES Performing Organization Address [facility] Co de Phone Number [facility] [place] [address] * Folate, serum (08/12/2022 12:55 AM EST) Pathologist [facility] [place] Folate 9.3 4.8 - 24.2 ng/mL [facility] Blood 08/12/2022 12:5 5 AM EST 08/12/2022 1:30 AM EST Narrative Resulting Agency Comment Spec In Lab Ludivina Foss MD CHEMISTRY ORDERABLES Performing Organization Address [facility] Co de Phone Number [facility] [place] [address] * (ABNORMAL) Ferritin (08/12/2022 12:55 AM EST) Pathologist [facility] [place] Ferritin 2,531(H) 30 - 400 ng/mL [facility] Comment: result rechecked-[place] Pediatric reference ranges not [place] [facility] interpret with caution. Reference ranges for females greater than 50 years of age approach values for men, i.e., 30-400 ng/mL. Blood 08/12/2022 12:5 5 AM EST 08/12/2022 1:30 AM EST Narrative Resulting Agency Comment Spec In Lab Ludivina Foss MD CHEMISTRY ORDERABLES Performing Organization Address [facility] Co de Phone Number [facility] [place] [address] * (ABNORMAL) Iron and TIBC (08/12/2022 12:55 AM EST) Iron 22(L) 45 - 160 mcg/dL [facility] TIBC 174(L) 250 - 450 mcg/dL [facility] Iron Saturation 13(L) 20 - 50 % [facility] Blood 08/12/2022 12:5 5 AM EST 08/12/2022 1:30 AM EST Narrative Resulting Agency Comment Spec In Lab Ludivina Foss MD CHEMISTRY ORDERABLES Performing Organization Address [facility] Co de Phone Number [facility] [place] [address] * (ABNORMAL) Phosphorus (08/12/2022 12:55 AM EST) Phosphorus 1.5(L) 2.5 - 4.5 mg/dL [facility] Blood 08/12/2022 12:5 5 AM EST 08/12/2022 1:30 AM EST Narrative Resulting Agency Comment Spec In Lab Ludivina Foss MD CHEMISTRY ORDERABLES Performing Organization Address [facility] de Phone Number [facility] [place] [address] * Magnesium (08/12/2022 12:55 AM EST) Magnesium 0.85 0.69 - 1.07 mmol/L [facility] Blood 08/12/2022 12:5 5 AM EST 08/12/2022 1:30 AM EST Narrative Resulting Agency Comment Spec In Lab Ludivina Foss MD CHEMISTRY ORDERABLES Performing Organization Address City/[facility]/ZIP Co de Phone Number [facility] [place] [address] * Triglyceride (08/12/2022 12:55 AM EST) Triglyceride 264 mg/dL [facility] Comment: Average Risk/Lower Risk: <150 mg/dL Borderline High Risk: 150-199 mg/dL High Risk: 200-499 mg/dL Very High Risk: >ro=965 mg/dL Blood 08/12/2022 12:5 5 AM EST 08/12/2022 1:30 AM EST Narrative Resulting Agency Comment Spec In Lab Ludivina Foss MD CHEMISTRY ORDERABLES Performing Organization Address [facility] Co de Phone Number [facility] [place] [address] * (ABNORMAL) Basic Metabolic Panel (non-fasting) (08/12/2022 12:55 AM EST) Glucose 157 65 - 199 mg/dL [facility] Comment:Diabetes: >=200 mg/d L plus symptoms Blood Urea Nitrogen 3(L) 10 - 20 mg/dL [facility] Creatinine 0.53(L) 0.80 - 1.50 mg/dL [facility] Sodium 133(L) 135 - 145 mmol/L [facility] Potassium 3.0(Criti catrachita) 3.5 - 5.0 mmol/L [facility] Comment: called by ARIELA /read back by Emely Khan/ 08/12/22 0208 Please note: ??Patients with WBC >100,000 may have falsely elevated Potassium levels. ??For accurate Potassium quantification in these patients send serum separator tube (gold top) for subsequent determinations. ??Contact the Clinical Chemistry Laboratory if there are any questions. Chloride 97(L) 98 - 107 mmol/L [facility] Carbon Dioxide 24 22 - 31 mmol/L [facility] Anion Gap 12 5 - 15 mmol/L [facility] Calcium 8.4(L) 8.5 - 10.5 mg/dL [facility] Est Glomerular Filtration Rate 144 >=60 mL/min/1. 73 m?? [facility] Comment: This patient's estimated GFR was calculated using the 2020 CKD-EPI equation. The estimated GFR can vary from the measured GFR by up to 30% in the absence of rapidly changing kidney function. Assessment of the estimated GFR is not appropriate when creatinine concentrations are rapidly changing. For clinical situations in which a more precise estimate of GFR is necessary, consider alternative methods of GFR estimation such as a 24-hour urine creatinine clearance. Assignment of CKD stage 1-5 for patients with an eGFR near the transition point between stages may be based on clinical assessment of muscle mass and symptoms in addition to eGFR. Blood 08/12/2022 12:5 5 AM EST 08/12/2022 1:30 AM EST Narrative Resulting Agency Comment Spec In Lab Ludivina Foss MD CHEMISTRY ORDERABLES [facility] [place] [address] * CT Abdomen & Pelvis w Contrast (08/11/2022 5:49 PM EST) Anatomical Region Laterality Modality Abdomen, Pelvis Computed Tomogra phy Impressions 08/11/2022 6:18 PM EST Acute interstitial edematous pancreatitis with acute peripancreatic fluid collection. Thank you for letting us participate in the care of this patient. ??If you are a health care provider and have any questions regarding this report, please contact the number below. ??For patients who have questions please contact the health assurance services manager health care that requested your imaging first. ? Electronically signed by: Sanam Ahumada MD, [facility] ([phone]), at 08/11/2022 6:18 PM Narrative 08/11/2022 6:18 PM EST EXAMINATION: CT ABDOMEN AND PELVIS W CONTRAST CLINICAL HISTORY: Abdominal pain, acute, nonlocalized; Pancreatitis, acute, severe TECHNIQUE: Helical CT of the abdomen and pelvis was performed following the intravenous administration of contrast. Administered 105.0 ml of OMNIPAQUE 350.00 mg/ml. COMPARISON: None FINDINGS: Lower chest: Small simple bilateral pleural effusions. Liver: Hepatomegaly and diffuse hepatic steatosis. Bile ducts: Not dilated. Gallbladder: Hypodense material within an otherwise normal distended gallbladder likely represents vicarious excretion of contrast. Pancreas: Enhancing engorged pancreas with extensive peripancreatic fluid that extends into the retroperitoneum and pelvis. No duct dilation. Spleen: Normal. Adrenals: Normal. Kidneys: Symmetric enhancement. No hydronephrosis. Vasculature: Normal abdominal aorta. No pseudoaneurysm. Patent splenic SMV and portal veins. Lymph Nodes: No enlarged lymph nodes. Bowel: No abnormal bowel dilation, wall thickening or surrounding inflammatory change. ?? Peritoneum: No free air. Moderate ascites. Abdominal wall: Normal. Urinary Bladder: Decompressed and normal. Reproductive organs: Normal. Osseous structures: No acute osseous findings. Procedure Note Sanam Ahumada MD - 08/11/2022 EXAMINATION: CT ABDOMEN AND PELVIS W CONTRAST CLINICAL HISTORY: Abdominal pain, acute, nonlocalized; Pancreatitis,acute, severe TECHNIQUE: Helical CT of the abdomen and pelvis was performed followingthe intravenous administration of contrast. Administered 105.0 ml ofOMNIPAQUE 350.00 mg/ml. COMPARISON: None FINDINGS: Lower chest: Small simple bilateral pleural effusions. Liver: Hepatomegaly and diffuse hepatic steatosis. Bile ducts: Not dilated. Gallbladder: Hypodense material within an otherwise normal distendedgallbladder likely represents vicarious excretion of contrast. Pancreas: Enhancing engorged pancreas with extensive peripancreatic fluidthat extends into the retroperitoneum and pelvis. No duct dilation. Spleen: Normal. Adrenals: Normal. Kidneys: Symmetric enhancement. No hydronephrosis. Vasculature: Normal abdominal aorta. No pseudoaneurysm. Patent splenic SMVand portal veins. Lymph Nodes: No enlarged lymph nodes. Bowel: No abnormal bowel dilation, wall thickening or surroundinginflammatory change. Peritoneum: No free air. Moderate ascites. Abdominal wall: Normal. Urinary Bladder: Decompressed and normal. Reproductive organs: Normal. Osseous structures: No acute osseous findings. IMPRESSION Acute interstitial edematous pancreatitis with acute peripancreaticfluid collection. Thank you for letting us participate in the care of this patient. If youare a health care provider and have any questions regarding this report,please contact the number below. For patients who have questions please contactthe health assurance services manager health care that requested your imaging first. Tobias Crabtree MD IMG CT ORDERABLES * (ABNORMAL) Urinalysis Microscopic Exam (08/11/2022 4:35 PM EST) RBC, Urine 45(H) 0 - 3 /HPF [facility] WBC, Urine 1 0 - 3 /HPF [facility] Squamous Epithelial Cells Raw Data, Urine 1 <=4 /HPF [facility] Hyaline Casts, Urine 2 0 - 2 /LPF [facility] Clean Catch Urine Urine / Unknown 08/11/2022 4:35 PM EST 08/11/2022 4:55 PM EST Narrative Resulting Agency Comment Spec In Lab Jono DOMIGNUEZ URINE ORDERABLES [facility] [place] [address] * (ABNORMAL) Urinalysis with reflex Culture (08/11/2022 4:35 PM EST) Glucose, Urine Dipstick Negative Negative mg/dL [facility] Protein, Urine Dipstick 100(A) Negative mg/dL [facility] Bilirubin, Urine Dipstick Negative Negative mg/dL [facility] Comment: Clinical correlation required for positive Urine Bilirubin results as false positive may occur with some drugs and drug related products. If a false positive is suspected a serum total bilirubin should be considered if clinically indicated. Urobilinogen, Urine Dipstick Normal Normal mg/dL [facility] pH, Urn (dipstick) 8.5(H) 5.0 - 8.0 [facility] Blood, Urine Dipstick Moderate(A) Negative mg/dL [facility] Ketone, Urine Dipstick >=80(Critica l) Negative mg/dL [facility] Comment: Urinalysis result NOT critical without a combination of Glucose greater than or equal to 500 mg/dL AND Ketones greater than or equal to 80 mg/dL Nitrite, Urine Dipstick Negative Negative [facility] Leukocytes, Urine Dipstick Negative Negative mcL [facility] Appearance, Urine Dipstick Clear Clear [facility] Specific [place] Urine Automated 1.017 1.005 - 1.030 [facility] Color, Urine Dipstick Yellow Yellow [facility] Reflex to Culture No [facility] Clean Catch Urine Urine / Unknown 08/11/2022 4:35 PM EST 08/11/2022 4:55 PM EST Narrative Resulting Agency Comment Spec In Lab Jono DOMINGUEZ URINE ORDERABLES Performing Organization Address City/State/[facility] Co de Phone Number [facility] [place] [address] * (ABNORMAL) Rapid Drug Screen w/o Confirmation, Urine (08/11/2022 4:35 PM EST) Barbiturates Screen, Urine Presumptive Pos(A) None Detected [facility] Comment: The barbiturate screen detects barbiturates at concentrations >200 ng/mL. Note: Not all barbiturates cross-react equally with antibody used in this screen. A ? Presumptive Positive? result indicates that the screening result was positive but has not yet been confirmed by a highly-specific method. As with any screen, occasional false positive results from cross-reacting substances may occur. Not for Medico-Legal Purposes. Benzodiazepines Screen, Urine None Detected None Detected [facility] Comment: The benzodiazepines screen detects benzodiazepines at concentrations >100 ng/mL. Not all benzodiazepines cross-react equally with antibody used in this screen. Due to the low dosage of clonazepam, false negatives may be obtained due to low concentration of clonazepam metabolites. A ? Presumptive Positive? result indicates that the screening result was positive but has not yet been confirmed by a highly-specific method. As with any screen, occasional false positive results from cross-reacting substances may occur. Not for Medico-Legal Purposes. Cocaine Screen, Urine None Detected None Detected [facility] Comment: The cocaine metabolites screen detects benzoylecgonine (Cocaine Metabolite) at concentrations >150 ng/mL. A ? Presumptive Positive? result indicates that the screening result was positive but has not yet been confirmed by a highly-specific method. As with any screen, occasional false positive results from cross-reacting substances may occur. Not for Medico-Legal Purposes. Methadone Metabolites Screen, Urine None Detected None Detected [facility] Comment: The methadone metabolite screen detects EDDP (major methadone metabolite) at concentrations >100 ng/mL. A ? Presumptive Positive? result indicates that the screening result was positive but has not yet been confirmed by a highly-specific method. As with any screen, occasional false positive results from cross-reacting substances may occur. Not for Medico-Legal Purposes. Opiate Screen, Urine None Detected None Detected [facility] Comment: The opiates screen detects opiates at concentrations >300 ng/mL. Please note that oxycodone, oxymorphone, fentanyl, tramadol, and other synthetic opioids are not detected by the opiate screen. A ? Presumptive Positive? result indicates that the screening result was positive but has not yet been confirmed by a highly-specific method. As with any screen, occasional false positive results from cross-reacting substances may occur. Not for Medico-Legal Purposes. Cannabinoid Screen, Urine None Detected None Detected [facility] Comment: The marijuana metabolites screen detects the THC metabolite (36-vit-1-carboxy-delta 9-THC) at concentrations >20 ng/mL. A ? Presumptive Positive? result indicates that the screening result was positive but has not yet been confirmed by a highly-specific method. As with any screen, occasional false positive results from cross-reacting substances may occur. Not for Medico-Legal Purposes. Oxycodone Screen, Urine None Detected None Detected [facility] Comment: The oxycodone screen detects oxycodone and oxymorphone at concentrations >100 ng/mL. A ? Presumptive Positive? result indicates that the screening result was positive but has not yet been confirmed by a highly-specific method. As with any screen, occasional false positive results from cross-reacting substances may occur. Not for Medico-Legal Purposes. Buprenorphine Screen, Urine None Detected None Detected [facility] Comment: The buprenorphine screen detects buprenorphine at concentrations >=5 ng/mL. A ? Presumptive Positive? result indicates that the screening result was positive but has not yet been confirmed by a highly-specific method. As with any screen, occasional false positive results from cross-reacting substances may occur. Not for Medico-Legal Purposes. This test has not been cleared by the [place] FDA. Performance characteristics of this test were determined by [facility] in accordance with CLIA requirements. This laboratory is qualified under CLIA to perform high-complexity testing. Fentanyl Screen, Urine None Detected None Detected [facility] Comment: The fentanyl screen detects fentanyl at concentrations >=2 ng/mL. A ? Presumptive Positive? result indicates that the screening result was positive but has not yet been confirmed by a highly-specific method. As with any screen, occasional false positive results from cross-reacting substances may occur. Not for Medico-Legal Purposes. This test has not been cleared by the [place] FDA. Performance characteristics of this test were determined by [facility] in accordance with CLIA requirements. This laboratory is qualified under CLIA to perform high-complexity testing. Tricyclics Screen, Urine None Detected None Detected [facility] Comment: The tricyclics screen detects tricyclic antidepressants at concentrations >=150 ng/mL. Not all tricyclics cross-react equally with the antibody used in this screen. A ? Presumptive Positive? result indicates that the screening result was positive but has not yet been confirmed by a highly-specific method. As with any screen, occasional false positive results from cross-reacting substances may occur. Not for Medico-Legal Purposes. This test has not been cleared by the [place] FDA. Performance characteristics of this test were determined by [facility] in accordance with CLIA requirements. This laboratory is qualified under CLIA to perform high-complexity testing. Ethanol Screen, Urine None Detected None Detected [facility] Comment:This urine ethanol a ssay detects ethanol at concentrations >/= 100 mg/L. Amphetamines Screen, Urine None Detected None Detected [facility] Comment: The amphetamine screen detects d-amphetamine and d-methamphetamine at concentrations >300 ng/mL. A ? Presumptive Positive? result indicates that the screening result was positive but has not yet been confirmed by a highly-specific method. As with any screen, occasional false positive results from cross-reacting substances may occur. Not for Medico-Legal Purposes. Adulterants Screen, Urine None Detected None Detected [facility] Comment: No adulteration or dilution of this urine sample was detected. All urine samples submitted for urine drugs of abuse analysis are tested for creatinine concentration, pH, and for the presence of oxidants, nitrites, and chromate. Urine 08/11/2022 4:35 PM EST 08/11/2022 4:43 PM EST Narrative Resulting Agency Comment Spec In Lab Jono DOMINGUEZ CHEMISTRY ORDERABLE S Performing Organization Address City/[facility]/ZIP Co de Phone Number [facility] [place] [address] * Rapid Drug Screen, Urine (SUSI Request) (08/11/2022 4:35 PM EST) SUSI Conf Requested No [facility] Comment: Collection date/time has been modified to: 16:35:00. ??Previous collection date/time: 16:15:00. Corrected from No [NA] on 08/11/22 16:44:06 EST by Elisabeth Monique SUSI Requested See Comment [facility] Comment: Refer to Rapid Drug Screen w/o Confirmation, Urine for results. Collection date/time has been modified to: 16:35:00. ??Previous collection date/time: 16:15:00. Corrected from See Comment [NA] on 08/11/22 16:44:06 EST by Elisabeth Monique Urine 08/11/2022 4:35 PM EST 08/11/2022 4:43 PM EST Narrative Resulting Agency Comment Spec In Lab Tobias Crabtree MD URINE ORDERABLES Performing Organization Address City/[facility]/ZIP Co de Phone Number [facility] [place] [address] * Scan, Peripheral Blood (08/11/2022 4:33 PM EST) Plat estimate Normal [facility] RBC Morphology Normal [facility] Blood Venous Draw / Unknown 08/11/2022 4:33 PM EST 08/11/2022 4:43 PM EST Narrative Resulting Agency Comment Spec In Lab Jono DOMINGUEZ HEMATOLOG[place] [address] * (ABNORMAL) Differential, Automated (08/11/2022 4:33 PM EST) Neutrophil % 51.0 % [facility] Neutrophil Absolute 7.09(H) 1.70 - 6.10 x10(3)/mc L [facility] Lymph % 11.7 % [facility] Lymphocytes Abs 1.6 0.9 - 3.2 x10(3)/mc L [facility] Monocyte % 21.4 % [facility] Monocyte Abs 3.0(H) 0.3 - 0.9 x10(3)/mc L [facility] Eos % 2.9 % [facility] Eosinophils Abs 0.4 0.0 - 0.4 x10(3)/mc L [facility] Basophil % 0.9 % [facility] Baso Absolute 0.1 0.0 - 0.1 x10(3)/mc L [facility] Immature Gran % 12.10 % [facility] Comment: Immature granulocytes(IG's)percentage and absolute count will include metamyelocytes, myelocytes, and promyelocytes. Blood smears from CBCs yielding IG's will be scanned manually for concordance. If this scan disagrees with the automated IG or if promyelocytes are noted, a manual differential will be performed. Immature Gran Absolute 1.68(H) 0.00 - 0.04 x10(3)/mc L [facility] Blood 08/11/2022 4:33 PM EST 08/11/2022 4:43 PM EST Narrative Resulting Agency Comment Spec In Lab Jono DOMINGUEZ HEMATOLOGY ORDERABL ES Performing Organization Address City/[facility]/ZIP [place] [address] * (ABNORMAL) Hemogram (08/11/2022 4:33 PM EST) White Blood Cell 13.9(H) 4.0 - 9.5 x10(3)/mc L [facility] Red Blood Cell 3.24(L) 4.58 - 5.54 x10(6)/mc L [facility] Hemoglobin 10.9(L) 13.7 - 16.5 g/dL [facility] Hematocrit 30.9(L) 40.5 - 48.5 % [facility] Mean Cell Volume 95.4(H) 82.9 - 93.1 fL [facility] Mean Cell Hemoglobin 33.6(H) 27.5 - 32.1 pg [facility] Mean Cell Hemoglobin Concentration 35.3 32.0 - 35.7 g/dL [facility] Platelet 289 145 - 357 x10(3)/mc L [facility] RDW Standard Deviation 44.2 36.0 - 45.0 fL [facility] RDW coefficient of variation 13.1 11.4 - 13.8 % [facility] Mean Platelet Volume 8.8 7.6 - 12.9 fL [facility] NRBC% auto 0.3 % [facility] NRBC Absolute 0.040(H) 0.000 - 0.000 x10(3)/mc L [facility] Blood 08/11/2022 4:33 PM EST 08/11/2022 4:43 PM EST Narrative Resulting Agency Comment Spec In Lab Jono DOMINGUEZ HEMATOLOGY ORDERABL ES Performing Organization Address City/State/[facility] Co de Phone Number [facility] [place] [address] * Ethanol Level (08/11/2022 4:33 PM EST) Ethanol <100 <=99 mg/L [facility] Comment: Greater than 800 mg/L (0.08%) should be considered intoxicated. 3400 to 4500 mg/L (0.34 - 0.45%) is considered severe intoxication. Greater than 5500 mg/L (0.55%) is usually fatal. Blood 08/11/2022 4:33 PM EST 08/11/2022 4:43 PM EST Narrative Resulting Agency Comment Spec In Lab Tobias Crabtree MD CHEMISTRY ORDERABL ES Performing Organization Address City/[facility]/ZIP Co de Phone Number [facility] [place] [address] * Lipase (08/11/2022 4:33 PM EST) Lipase 46 0 - 60 unit/L [facility] Blood 08/11/2022 4:33 PM EST 08/11/2022 4:43 PM EST Narrative Resulting Agency Comment Spec In Lab Tobias Crabtree MD CHEMISTRY ORDERABL ES Performing Organization Address [facility] Co de Phone Number [facility] [place] [address] * (ABNORMAL) Comprehensive metabolic panel (non-fasting) (08/11/2022 4:33 PM EST) Glucose 120 65 - 199 mg/dL [facility] Comment:Diabetes: >=200 mg/d L plus symptoms Blood Urea Nitrogen 5(L) 10 - 20 mg/dL [facility] Creatinine 0.61(L) 0.80 - 1.50 mg/dL [facility] Sodium 134(L) 135 - 145 mmol/L [facility] Potassium 3.2(L) 3.5 - 5.0 mmol/L [facility] Comment: Please note: ??Patients with WBC >100,000 may have falsely elevated Potassium levels. ??For accurate Potassium quantification in these patients send serum separator tube (gold top) for subsequent determinations. ??Contact the Clinical Chemistry Laboratory if there are any questions. Chloride 96(L) 98 - 107 mmol/L [facility] Carbon Dioxide 25 22 - 31 mmol/L [facility] Anion Gap 13 5 - 15 mmol/L [facility] Calcium 8.6 8.5 - 10.5 mg/dL [facility] Protein, Total 6.8 6.1 - 8.0 g/dL [facility] Albumin 3.7 3.2 - 5.2 g/dL [facility] Aspartate Aminotransferase 66(H) 0 - 39 unit/L [facility] Alanine Aminotransferase 49 0 - 55 unit/L [facility] Alkaline Phosphatase 118 40 - 130 unit/L [facility] Bilirubin, Total 0.7 0.2 - 1.3 mg/dL [facility] Est Glomerular Filtration Rate 138 >=60 mL/min/1. 73 m?? [facility] Comment: This patient's estimated GFR was calculated using the 2020 CKD-EPI equation. The estimated GFR can vary from the measured GFR by up to 30% in the absence of rapidly changing kidney function. Assessment of the estimated GFR is not appropriate when creatinine concentrations are rapidly changing. For clinical situations in which a more precise estimate of GFR is necessary, consider alternative methods of GFR estimation such as a 24-hour urine creatinine clearance. Assignment of CKD stage 1-5 for patients with an eGFR near the transition point between stages may be based on clinical assessment of muscle mass and symptoms in addition to eGFR. Blood 08/11/2022 4:33 PM EST 08/11/2022 4:43 PM EST Narrative Resulting Agency Comment Spec In Lab Tobias Crabtree MD CHEMISTRY ORDERABL ES Performing Organization Address City/[facility] Co de Phone Number [facility] [place] [address] * EKG 12 Lead (08/11/2022 4:02 PM EST) Ventricular rate 96 BPM MUSE SYSTEM Atrial Rate 96 BPM MUSE SYSTEM P-R Interval 130 ms MUSE SYSTEM QRS Duration 84 ms MUSE SYSTEM Q-T Interval 350 ms MUSE SYSTEM QTC Calculated (Bezet) 442 ms MUSE SYSTEM Calculated P Parker 46 degrees MUSE SYSTEM Calculated R Parker 48 degrees MUSE SYSTEM Calculated T Parker 21 degrees MUSE SYSTEM INTERPRETATION Normal sinus rhythm Nonspecific T wave abnormality Abnormal ECG No previous ECGs available Confirmed by Chriss Xiao MD ([id number]) on 08/12/2022 2:07:30 PM MUSE SYSTEM 08/11/2022 4:02 PM EST 08/12/2022 2:07 PM EST Tobias Crabtree MD ECG ORDERABLES Performing Organization Address City/[facility]/ZIP Co de Phone Number MUSE SYSTEM documented in this encounter Visit Diagnoses Diagnosis Acute pancreatitis- Primary Acute pancreatitis documented in this encounter Admitting Diagnoses Diagnosis Acute pancreatitis documented in this encounter Administered Medications Inactive Administered Medications - up to 3 most recent administrations Medication Order MAR Action Action Date Dose Rate Site acetaminophen (Tylenol) tablet 975 mg 975 mg, Oral, EVERY 8 HOURS, First dose (after last modification) on Sat08/12/22 at 1415, Until Discontinued, Administer for temperature greater than or equal to 38.2 degrees celsius. Maximum daily dose of acetaminophen from all sources not to exceed 4,000 mg. When ordered for pain, acetaminophen should be given even when other ordered pain medications are indicated., Routine Given 08/14/2022 2:44 PM EST 975 mg Given 08/14/2022 6:25 AM EST 975 mg Given 08/13/2022 10:03 PM EST 975 mg citalopram (CeleXA) tablet 20 mg 20 mg, Oral, NIGHTLY, First dose on 08/11/22 at 2130, Until Discontinued, Routine Given 08/13/2022 9:52 PM EST 20 mg Given 08/12/2022 9:30 PM EST 20 mg Given 08/11/2022 10:03 PM EST 20 mg cloNIDine (Catapres) tablet 0.1 mg 0.1 mg, Oral, NIGHTLY, First dose on 08/11/22 at 2145, Until Discontinued, Routine Given 08/13/2022 9:[address] 0.1 mg Given 08/12/2022 9:28 PM EST 0.1 mg Given 08/11/2022 10:03 PM EST 0.1 mg cloNIDine (Catapres) tablet 0.1 mg 0.1 mg, Oral, 3 TIMES DAILY PRN, Starting on Sat08/11/22 at 2039, Until Sat08/14/22 at 2024, anxiety, Routine Given 08/14/2022 3:35 PM EST 0.1 mg folic acid (Folvite) tablet 1,000 mcg 1,000 mcg, Oral, DAILY, First dose on Sat08/12/22 at 0900, Until Discontinued, Routine Given 08/14/2022 8:47 AM EST 1,000 mcg Given 08/13/2022 8:39 AM EST 1,000 mcg Given 08/12/2022 9:05 AM EST 1,000 mcg gabapentin (Neurontin) capsule 600 mg 600 mg, Oral, DAILY, First dose on Sat08/12/22 at 0900, Until Discontinued, Routine Given 08/14/2022 8:46 AM EST 600 mg Given 08/13/2022 8:38 AM EST 600 mg Given 08/12/2022 9:05 AM EST 600 mg gabapentin (Neurontin) capsule 800 mg 800 mg, Oral, NIGHTLY, First dose on 08/11/22 at 2145, Until Discontinued, Routine Given 08/13/2022 9:[address] 800 mg Given 08/12/2022 9:30 PM EST 800 mg Given 08/11/2022 10:03 PM EST 800 mg HYDROmorphone (Dilaudid) (0.5 mg/0.5 mL) injection syringe 0.5 mg 0.5 mg, Intravenous, ONCE, 1 dose, On 08/11/22 at 1723, Routine Given 08/11/2022 6:42 PM EST 0.5 mg HYDROmorphone (Dilaudid) (0.5 mg/0.5 mL) injection syringe 0.5 mg 0.5 mg, Subcutaneous, EVERY 2 HOURS PRN, Starting on 08/11/22 at 2040, Until 08/12/22 at 0857, Pain, Routine Given 08/12/2022 6:32 AM EST 0.5 mg Given 08/12/2022 2:36 AM EST 0.5 mg Given 08/12/2022 12:45 AM EST 0.5 mg L eft Arm HYDROmorphone (Dilaudid) (1 mg/mL) injection syringe 0.6 mg 0.6 mg, Intravenous, ONCE, 1 dose, On 08/12/22 at 0348, STAT Given 08/12/2022 4:14 AM EST 0.6 mg HYDROmorphone (Dilaudid) tablet 2 mg 2 mg, Oral, EVERY 4 HOURS PRN, Starting on 08/12/22 at 0855, Until 08/12/22 at 1327, Pain, May give an additional 2 mg once if pain not relieved in 30-60 minutes., Routine Given 08/12/2022 10:35 AM EST 2 mg Given 08/12/2022 9:05 AM EST 2 mg HYDROmorphone (Dilaudid) tablet 2 mg 2 mg, Oral, EVERY 4 HOURS PRN, Starting on 08/12/22 at 1326, Until Sat08/14/22 at 2024, Pain, for mild pain (1-3), May give an additional 2 mg once if pain not relieved in 30-60 minutes., Routine Given 08/14/2022 2:44 PM EST 2 mg Given 08/14/2022 10:31 AM EST 2 mg Given 08/14/2022 6:29 AM EST 2 mg HYDROmorphone (Dilaudid) tablet 4 mg 4 mg, Oral, EVERY 4 HOURS PRN, Starting on 08/12/22 at 1326, Until Sat08/14/22 at 2024, Pain, for moderate pain (4-6), May give an additional 2 mg once if pain not relieved in 30-60 minutes., Routine Given 08/14/2022 3:40 AM EST 4 mg Given 08/13/2022 9:52 PM EST 4 mg Given 08/12/2022 1:38 PM EST 4 mg HYDROmorphone (Dilaudid) tablet 6 mg 6 mg, Oral, EVERY 4 HOURS PRN, Starting on 08/12/22 at 1326, Until Sat08/14/22 at 2024, Pain, for severe pain (7-10), May give an additional 2 mg once if pain not relieved in 30-60 minutes., Routine Given 08/13/2022 4:34 PM EST 6 mg Given 08/13/2022 11:49 AM EST 6 mg Given 08/13/2022 6:52 AM EST 6 mg hydrOXYzine (Atarax) tablet 25 mg 25 mg, Oral, 3 TIMES DAILY PRN, Starting on 08/11/22 at 2040, Until Sat08/14/22 at 2024, Anxiety, Routine Given 08/12/2022 9:30 PM EST 25 mg ibuprofen (Advil) tablet 600 mg 600 mg, Oral, EVERY 6 HOURS PRN, Starting on 08/13/22 at 1203, Until Sat08/14/22 at 2024, Pain, Administer orally with milk or food to minimize GI irritation. Maximum dose of 3,200 mg from all sources in 24 hours, Routine Given 08/14/2022 12:25 PM EST 600 mg Given 08/14/2022 3:41 AM EST 600 mg Given 08/13/2022 6:53 PM EST 600 mg iohexoL (Omnipaque) (350 mg/mL) solution 0-200 mL 0-200 mL, Intravenous, ONCE PRN, 1 dose, Starting on 08/11/22 at 1749, Until Sat08/11/22 at 1749, Per Protocol, Warning Vesicant/Irritant Medication , Radiology Contrast, Routine Given 08/11/2022 5:49 PM EST 105 mLs iohexoL (Omnipaque) (350 mg/mL) solution 0-200 mL 0-200 mL, Intravenous, ONCE PRN, 1 dose, Starting on Sat08/14/22 at 1509, Until Sat08/14/22 at 1509, Per Protocol, Warning Vesicant/Irritant Medication , Radiology Contrast, Routine Given 08/14/2022 3:09 PM EST 94 mLs lactated Ringers 1,000 mL IV bolus at 500 mL/hr, Intravenous, ONCE, 1 dose, On 08/11/22 at 1918 New Bag 08/11/2022 8:15 PM EST 5 00 mL/hr lactated ringers infusion 150 mL/hr, Intravenous, CONTINUOUS, Starting on Sat08/11/22 at 2200, Until Sat08/13/22 at 0855 New Bag 08/13/2022 8:39 AM EST 150 mL/hr 150 mL/hr New Bag 08/12/2022 6:48 PM EST 150 mL/hr 150 mL/hr New Bag 08/12/2022 12:49 PM EST 150 mL/hr 150 mL/hr lactated ringers infusion 150 mL/hr, Intravenous, CONTINUOUS, Starting on Sat08/13/22 at 1300, Until Sat08/14/22 at 1259 New Bag 08/14/2022 3:41 AM EST 150 mL/hr 150 mL/hr Continued Bag 08/13/2022 10:00 PM EST 150 mL/hr 150 mL/hr New Bag 08/13/2022 6:55 PM EST 150 mL/hr 150 mL/hr LORazepam (Ativan) (2 mg/mL) injection 1 mg 1 mg, Intravenous, ONCE, 1 dose, On 08/11/22 at 2045, Routine Given 08/11/2022 8:51 PM EST 1 mg melatonin tablet 6 mg 6 mg, Oral, NIGHTLY, First dose on 08/11/22 at 2130, Until Discontinued, Routine Given 08/13/2022 9:52 PM EST 6 mg Given 08/12/2022 9:30 PM EST 6 mg Given 08/11/2022 10:05 PM EST 6 mg metoclopramide (Reglan) (5 mg/mL) injection 10 mg 10 mg, Intravenous, ONCE, 1 dose, On 08/11/22 at 1740, Doses greater than 10mg should be diluted into 50ml NS., STAT Given 08/11/2022 6:42 PM EST 10 mg mirtazapine (Remeron) tablet 15 mg 15 mg, Oral, NIGHTLY, First dose on 08/11/22 at 2145, Until Discontinued, Routine Given 08/13/2022 9:52 PM EST 15 mg Given 08/12/2022 9:28 PM EST 15 mg Given 08/11/2022 10:03 PM EST 15 mg nicotine (Nicoderm CQ) 21 mg/24 hr patch 21 mg 21 mg (1 patch), Transdermal, Administer over 24 Hours, DAILY, First dose on 08/11/22 at 2354, Until Discontinued, Apply new patch to clean, dry, hair-free skin on the upper body or upper outer arm; each patch should be applied to a different site. , Routine Patch Applied 08/14/2022 8:46 AM EST 21 mg 10- Arm Upper (Right) Patch Applied 08/13/2022 10:54 PM EST 21 mg 09- Arm Upper (Left) Patch Applied 08/13/2022 2:34 AM EST 21 mg 03- Shoulder (Left) nicotine (Nicoderm CQ) 21 mg/24 hr patch Patch Verification Transdermal, 2 TIMES DAILY, First dose on 08/12/22 at 1153, Until Discontinued, Verify nicotine 21 mg/24 hr patch nicotine polacrilex (Nicorette) gum 2 mg 2 mg, Buccal, EVERY 4 HOURS PRN, Starting on 08/12/22 at 1833, Until 08/14/22 at 2024, Smoking cessation, Chew gum slowly. Do not swallow. Maximum of 48 mg/day., Routine Given 08/12/2022 6:45 PM EST 2 mg ondansetron (pf) (Zofran) (2 mg/mL) injection 4 mg 4 mg, Intravenous, ONCE, 1 dose, On 08/11/22 at 1523, STAT Given 08/11/2022 4:59 PM EST 4 mg ondansetron (pf) (Zofran) (2 mg/mL) injection 4-8 mg 4-8 mg, Intravenous, EVERY 8 HOURS PRN, Starting on 08/11/22 at 2040, Until 08/14/22 at 2024, Nausea, Start with 4mg and if ineffective in 30 minutes, give an additional 4mg If multiple antiemetics are ordered, give ondansetron first. Given 08/12/2022 12:25 AM EST 4 mg ondansetron (Zofran) tablet 4-8 mg 4-8 mg, Oral, EVERY 8 HOURS PRN, Starting on 08/11/22 at 2040, Until Tu08/14/22 at 2024, Nausea, Vomiting, If multiple antiemetics are ordered, use ondansetron first. PO Preferred. If patient unable to take PO, may give IV if ordered. Start with 4mg and if ineffective in 45 minutes, give an additional 4mg. If unable to take PO, may give IV., Routine pantoprazole EC (Protonix) tablet 40 mg 40 mg, Oral, DAILY, First dose on Sat08/12/22 at 0348, Until Discontinued, DO NOT CRUSH OR OPEN Given 08/14/2022 8:47 AM EST 40 mg Given 08/13/2022 8:39 AM EST 40 mg Given 08/12/2022 5:23 AM EST 40 mg potassium chloride 10 mEq in sterile water 100 mL infusion 10 mEq, Intravenous, EVERY HOUR, 4 doses, First dose on Sat08/12/22 at 0300, Last dose on Sat08/12/22 at 0600, Administer over 60 Minutes, Warning Vesicant/Irritant Medication New Bag 08/12/2022 6:54 AM EST 10 mEq 100 mL/hr New Bag 08/12/2022 5:25 AM EST 10 mEq 100 mL/hr New Bag 08/12/2022 4:14 AM EST 10 mEq 100 mL/hr potassium chloride ER (K-Dur/Klor-Con) tablet 40 mEq 40 mEq, Oral, ONCE, 1 dose, On 08/12/22 at 0224, 20 mEq tablet may be dissolved in water for administration, Routine Given 08/12/2022 2:43 AM EST 40 mEq potassium, sodium phosphates (Neutra-Phos) 280-160-250 mg oral packet 1.5 g 1.5 g, Oral, 4 TIMES DAILY WITH MEALS & NIGHTLY, First dose on 08/12/22 at 0800, Until Discontinued, Take with full glass of water, Routine Given 08/14/2022 5:18 PM EST 1.5 g Given 08/14/2022 12:27 PM EST 1.5 g Given 08/14/2022 7:50 AM EST 1.5 g prochlorperazine (Compazine) (5 mg/mL) injection 10 mg 10 mg, Intravenous, EVERY 6 HOURS PRN, Starting on 08/11/22 at 2039, Until Sat08/14/22 at 2024, Nausea, Nausea/Vomiting, If multiple antiemetics are ordered, use ondansetron first. If ondansetron ineffective use prochlorperazine. Only give IV if unable to take PO, Routine prochlorperazine (Compazine) tablet 10 mg 10 mg, Oral, EVERY 6 HOURS PRN, Starting on 08/11/22 at 2039, Until Sat08/14/22 at 2024, Nausea, Nausea/Vomiting, If multiple antiemetics are ordered, use ondansetron first. If ondansetron ineffective use prochlorperazine. PO Preferred. If patient unable to take PO, may give IV if ordered., Routine sodium chloride 0.9 % (flush) (BD PosiFlush Normal Saline 0.9) flush 5 mL 5 mL, Intravenous, 2 TIMES DAILY, First dose on 08/11/22 at 2100, Until Discontinued, Routine Given 08/14/2022 8:48 AM EST 5 mLs Given 08/13/2022 9:55 PM EST 5 mLs Given 08/13/2022 9:40 AM EST 5 mLs sodium chloride 0.9% 1,000 mL IV bolus at 2,000 mL/hr, Intravenous, ONCE, 1 dose, On 08/11/22 at 1523 New Bag 08/11/2022 4:59 PM EST 2000 mL/hr sodium chloride 0.9% infusion 150 mL/hr, Intravenous, CONTINUOUS, Starting on 08/11/22 at 1724, Until 08/11/22 at 1916 New Bag 08/11/2022 6:43 PM EST 150 mL/hr 150 mL/hr thiamine (Vitamin B1) tablet 100 mg 100 mg, Oral, DAILY, First dose on 08/12/22 at 0900, Until Discontinued, Routine Given 08/14/2022 8:47 AM EST 100 mg Given 08/13/2022 8:38 AM EST 100 mg Given 08/12/2022 9:05 AM EST 100 mg documented in this encounter Active and Recently Administered Medications Times are shown in EST. Scheduled Medication Order 08/12/2022 08/13/2022 08/14/2022 acetaminophen (Tylenol) tablet 975 mg 975 mg, Oral, EVERY 8 HOURS, First dose (after last modification) on 08/12/22 at 1415, Until Discontinued, Administer for temperature greater than or equal to 38.2 degrees celsius. Maximum daily dose of acetaminophen from all sources not to exceed 4,000 mg. When ordered for pain, acetaminophen should be given even when other ordered pain medications are indicated., Routine 1338 (Given - Provider: Belkis Carver RN)2127 (Given - Provider: Vanita Fields RN) 0547 (Given - Provider: Manisha Alonzo RN)1350 (Given - Provider: Jerica Mcgill LPN)2203 (Given - Provider: Blake Gibbs RN) 0615 (Not Given - Provider: Blake Gibbs RN - Reason: See comment - Comment: pt sleeping, will offer when awake)0625 (Given - Provider: Blake Gibbs RN)0800 (Not Given - Provider: Brenna Mendoza RN - Reason: See comment - Comment: Given previously)1444 (Given - Provider: Brenna Mendoza RN) citalopram (CeleXA) tablet 20 mg 20 mg, Oral, NIGHTLY, First dose on 08/11/22 at 2130, Until Discontinued, Routine 213 (Given - Provider: Vanita Fields RN) 2152 (Given - Provider: Blake Gibbs RN) cloNIDine (Catapres) tablet 0.1 mg 0.1 mg, Oral, NIGHTLY, First dose on 08/11/22 at 214, Until Discontinued, Routine 2127 (Given - Provider: Vanita Fields RN) 2152 (Given - Provider: Blake Gibbs RN) enoxaparin (Lovenox) (40 mg/0.4 mL) subcutaneous injection 40 mg 40 mg, Subcutaneous, NIGHTLY, First dose on 08/12/22 at 2145, Until Discontinued, Routine 2144 (Not Given - Provider: Vanita Fields RN - Reason: Patient/family refused) 2100 (Not Given - Provider: Blake Gibbs RN - Reason: Patient/family refused) folic acid (Folvite) tablet 1,000 mcg 1,000 mcg, Oral, DAILY, First dose on 08/12/22 at 0900, Until Discontinued, Routine 09 (Given - Provider: Belkis Carver RN) 0839 (Given - Provider: Brenna Mendoza RN) 0847 (Given - Provider: Brenna Mendoza RN) gabapentin (Neurontin) capsule 600 mg 600 mg, Oral, DAILY, First dose on 08/12/22 at 0900, Until Discontinued, Routine 09 (Given - Provider: Belkis Carver RN) 0838 (Given - Provider: Brenna Mendoza RN) 0846 (Given - Provider: Brenna Mendoza RN) gabapentin (Neurontin) capsule 800 mg 800 mg, Oral, NIGHTLY, First dose on 08/11/22 at 2145, Until Discontinued, Routine 2129 (Given - Provider: Vanita Fields RN) 2152 (Given - Provider: Blake Gibbs RN) HYDROmorphone (Dilaudid) (1 mg/mL) injection syringe 0.6 mg (COMPLETED) 0.6 mg, Intravenous, ONCE, 1 dose, On 08/12/22 at 0348, STAT 0414 (Given - Provider: Gabby Black RN) melatonin tablet 6 mg 6 mg, Oral, NIGHTLY, First dose on 08/11/22 at 2130, Until Discontinued, Routine 2129 (Given - Provider: Vanita Fields RN) 2151 (Given - Provider: Blake Gibbs RN) mirtazapine (Remeron) tablet 15 mg 15 mg, Oral, NIGHTLY, First dose on 08/11/22 at 2145, Until Discontinued, Routine 2127 (Given - Provider: Vanita Fields RN) 2151 (Given - Provider: Blake Gibbs RN) nicotine (Nicoderm CQ) 21 mg/24 hr patch 21 mg(Linked Group 1) 21 mg (1 patch), Transdermal, Administer over 24 Hours, DAILY, First dose on 08/11/22 at 2354, Until Discontinued, Apply new patch to clean, dry, hair-free skin on the upper body or upper outer arm; each patch should be applied to a different site. , Routine 36 (Patch Applied - Provider: Gabby Black RN)2130 (Patch Not Removed (add comment) - Provider: Vanita Fields RN - Comment: no patch) 0234 (Patch Applied - Provider: Vanita Fields RN)2252 (Patch Removed - Provider: Blake Gibbs RN)2254 (Patch Applied - Provider: Blake Gibbs RN) 0846 (Patch Applied - Provider: Brenna Mendoza RN)1824 (Due: Patch Removed - Provider: Automatic Discharge Provider - Comment: Time automatically adjusted from order being discontinued) nicotine (Nicoderm CQ) 21 mg/24 hr patch Patch Verification(Linked Group 1) Transdermal, 2 TIMES DAILY, First dose on 08/12/22 at 1153, Until Discontinued, Verify nicotine 21 mg/24 hr patch 1153 (Patch (dose and location) verified - Provider: Belkis Carver RN)2100 (Patch Not Verified (add comment) - Provider: Vanita Fields RN - Comment: fell off) 0900 (Patch (dose and location) verified - Provider: Brenna Mendoza RN - Comment: NICOL)2100 (Patch (dose and location) verified - Provider: Blake Gibbs RN) 0918 (Patch (dose and location) verified - Provider: Brenna Mendoza RN - Comment: ILIA) pantoprazole EC (Protonix) tablet 40 mg 40 mg, Oral, DAILY, First dose on 08/12/22 at 0348, Until Discontinued, DO NOT CRUSH OR OPEN 0523 (Given - Provider: Gabby Black RN)0630 (Not Given - Provider: Gabby Black RN - Reason: See comment - Comment: duplicate order) 0839 (Given - Provider: Brenna Mendoza RN) 0847 (Given - Provider: Brenna Mendoza RN) potassium chloride 10 mEq in sterile water 100 mL infusion (COMPLETED) 10 mEq, Intravenous, EVERY HOUR, 4 doses, First dose on 08/12/22 at 0300, Last dose on 08/12/22 at 0600, Administer over 60 Minutes, Warning Vesicant/Irritant Medication 0243 (New Bag - Provider: Gabby Black RN)0343 (Stopped - Provider: Gabby Black RN)0414 (New Bag - Provider: Gabby Black RN)0459 (Stopped - Provider: Gabby Black RN)0525 (New Bag - Provider: Gabby Black RN)0559 (Stopped - Provider: Beau Garcia RN)0654 (New Bag - Provider: Beau Garcia RN)0754 (Stopped - Provider: Belkis Carver RN) potassium chloride ER (K-Dur/Klor-Con) tablet 40 mEq (COMPLETED) 40 mEq, Oral, ONCE, 1 dose, On 08/12/22 at 0224, 20 mEq tablet may be dissolved in water for administration, Routine 0243 (Given - Provider: Gabby Black RN) potassium, sodium phosphates (Neutra-Phos) 280-160-250 mg oral packet 1.5 g 1.5 g, Oral, 4 TIMES DAILY WITH MEALS & NIGHTLY, First dose on 08/12/22 at 0800, Until Discontinued, Take with full glass of water, Routine 0907 (Given - Provider: Belkis Carver RN)1250 (Given - Provider: Belkis Carver RN)1728 (Given - Provider: Belkis Carver RN)2129 (Given - Provider: Vanita Fields, RICKEY) 0800 (Given - Provider: Brenna Mendoza RN)1206 (Given - Provider: Jerica Mcgill LPN)1718 (Given - Provider: Brenna Mendoza RN)2203 (Given - Provider: Blake Gibbs, RICKEY) 0750 (Given - Provider: Brenna Mendoza RN)1227 (Given - Provider: Brenna Mendoza RN)1718 (Given - Provider: Brenna Mendoza RN) sodium chloride 0.9 % (flush) (BD PosiFlush Normal Saline 0.9) flush 5 mL 5 mL, Intravenous, 2 TIMES DAILY, First dose on 08/11/22 at 2100, Until Discontinued, Routine 0907 (Given - Provider: Belkis Carver RN)2100 (Given - Provider: Vanita Fields RN) 0940 (Given - Provider: Brenna Mendoza RN)2155 (Given - Provider: Blake Gibbs, RICKEY) 0848 (Given - Provider: Brenna Mendoza RN) thiamine (Vitamin B1) tablet 100 mg 100 mg, Oral, DAILY, First dose on 08/12/22 at 0900, Until Discontinued, Routine 0905 (Given - Provider: Belkis Carver RN) 0838 (Given - Provider: Brenna Mendoza RN) 0847 (Given - Provider: Brenna Mendoza RN) Continuous Medication Order 08/12/2022 08/13/2022 08/14/2022 lactated ringers infusion () 150 mL/hr, Intravenous, CONTINUOUS, Starting on 08/11/22 at 2200, Until 08/13/22 at 0855 1249 (New Bag - Provider: Beklis Carver RN)1848 (New Bag - Provider: Belkis Carver RN) 0236 (Hold - Provider: Vanita Fields RN - Reason: See comment - Comment: pt asked to be disconnected from IVF so he can sleep)0800 (Stopped - Provider: Stefanie Murcia RN)0839 (New Bag - Provider: Brenna Mendoza, RICKEY) lactated ringers infusion 150 mL/hr, Intravenous, CONTINUOUS, Starting on 08/13/22 at 1300, Until Sat08/14/22 at 1259 1223 (New Bag - Provider: Stefanie Murcia RN)1855 (New Bag - Provider: Brenna Mendoza, RICKEY)2200 (Continued Bag - Provider: Blake Gibbs, RICKEY) 0341 (New Bag - Provider: Blake Gibbs RN)1018 (Stopped - Provider: Venkat Escobedo RN) PRN Medication Order 08/12/2022 08/13/2022 08/14/2022 cloNIDine (Catapres) tablet 0.1 mg 0.1 mg, Oral, 3 TIMES DAILY PRN, Starting on 08/11/22 at 2040, Until Sat08/14/22 at 2025, anxiety, Routine 1535 (Given - Provider: Brenna Mendoza RN) HYDROmorphone (Dilaudid) (0.5 mg/0.5 mL) injection syringe 0.5 mg (CANCELED) 0.5 mg, Subcutaneous, EVERY 2 HOURS PRN, Starting on 08/11/22 at 2040, Until 08/12/22 at 0857, Pain, Routine 0045 (Given - Provider: Gabby Black, RICKEY)0236 (Given - Provider: Gabby Black, RICKEY)0632 (Given - Provider: Gabby Black RN) HYDROmorphone (Dilaudid) tablet 2 mg (CANCELED) 2 mg, Oral, EVERY 4 HOURS PRN, Starting on 08/12/22 at 0855, Until 08/12/22 at 1327, Pain, May give an additional 2 mg once if pain not relieved in 30-60 minutes., Routine 0905 (Given - Provider: Belkis Carver, RICKEY)1035 (Given - Provider: Belkis Carver RN) HYDROmorphone (Dilaudid) tablet 2 mg(Linked Group 2) 2 mg, Oral, EVERY 4 HOURS PRN, Starting on 08/12/22 at 1326, Until Sat08/14/22 at 2024, Pain, for mild pain (1-3), May give an additional 2 mg once if pain not relieved in 30-60 minutes., Routine 1338 (See Alternative - Provider: Belkis Carver RN)1728 (See Alternative - Provider: Belkis Carver RN)2127 (See Alternative - Provider: Vanita Fields RN) 0234 (See Alternative - Provider: Vanita Fields RN)0652 (See Alternative - Provider: Manisha Alonzo RN)1149 (See Alternative - Provider: Jerica Mcgill LPN)1634 (See Alternative - Provider: Brenna Mendoza RN)2152 (See Alternative - Provider: Blake Gibbs RN) 0340 (See Alternative - Provider: Blake Gibbs RN)0629 (Given - Provider: Blake Gibbs RN)1031 (Given - Provider: Brenna Mendoza RN)1444 (Given - Provider: Brenna Mendoza RN) HYDROmorphone (Dilaudid) tablet 4 mg(Linked Group 2) 4 mg, Oral, EVERY 4 HOURS PRN, Starting on 08/12/22 at 1326, Until Sat08/14/22 at 2024, Pain, for moderate pain (4-6), May give an additional 2 mg once if pain not relieved in 30-60 minutes., Routine 1338 (Given - Provider: Belkis Carver RN)1728 (See Alternative - Provider: Belkis Carver RN)2127 (See Alternative - Provider: Vanita Fields RN) 0234 (See Alternative - Provider: Vanita Fields RN)0652 (See Alternative - Provider: Manisha Alonzo RN)1149 (See Alternative - Provider: Jerica Mcgill LPN)1634 (See Alternative - Provider: Brenna Mendoza RN)2152 (Given - Provider: Blake Gibbs RN) 0340 (Given - Provider: Blake Gibbs RN)0629 (See Alternative - Provider: Blake Gibbs RN)1031 (See Alternative - Provider: Brenna Mendoza RN)1444 (See Alternative - Provider: Brenna Mendoza RN) HYDROmorphone (Dilaudid) tablet 6 mg(Linked Group 2) 6 mg, Oral, EVERY 4 HOURS PRN, Starting on 08/12/22 at 1326, Until Sat08/14/22 at 2024, Pain, for severe pain (7-10), May give an additional 2 mg once if pain not relieved in 30-60 minutes., Routine 1338 (See Alternative - Provider: Belkis Carver RN)1728 (Given - Provider: Belkis Carver RN)2127 (Given - Provider: Vanita Fields RN) 0234 (Given - Provider: Vanita Fields RN)0652 (Given - Provider: Manisha Alonzo RN)1149 (Given - Provider: Jerica Mcgill LPN)1634 (Given - Provider: Brenna Mendoza RN)2152 (See Alternative - Provider: Blake Gibbs RN) 0340 (See Alternative - Provider: Blake Gibbs RN)0629 (See Alternative - Provider: Blake Gibbs RN)1031 (See Alternative - Provider: Brenna Mendoza RN)1444 (See Alternative - Provider: Brenna Mendoza RN) hydrOXYzine (Atarax) tablet 25 mg 25 mg, Oral, 3 TIMES DAILY PRN, Starting on 08/11/22 at 2040, Until Sat08/14/22 at 2024, Anxiety, Routine 0036 (Not Given - Provider: Gabby Black RN - Reason: Patient/family refused - Comment: pt reports it previously increased his BP)2130 (Given - Provider: Vanita Fields RN) ibuprofen (Advil) tablet 600 mg 600 mg, Oral, EVERY 6 HOURS PRN, Starting on 08/13/22 at 1203, Until Sat08/14/22 at 2024, Pain, Administer orally with milk or food to minimize GI irritation. Maximum dose of 3,200 mg from all sources in 24 hours, Routine 1853 (Given - Provider: Brenna Mendoza RN) 0341 (Given - Provider: Blake Gibbs RN)1225 (Given - Provider: Brenna Mendoza, RICKEY) iohexoL (Omnipaque) (350 mg/mL) solution 0-200 mL (COMPLETED) 0-200 mL, Intravenous, ONCE PRN, 1 dose, Starting on 08/14/22 at 1509, Until 08/14/22 at 1509, Per Protocol, Warning Vesicant/Irritant Medication , Radiology Contrast, Routine 1509 (Given - Provider: Ira Bucio) lidocaine (Xylocaine) 1% (10 mg/mL) injection 3 mg 3 mg (0.3 mL), Subcutaneous, ONCE PRN, 1 dose, Starting on 08/11/22 at 2040, Until Sat08/14/22 at 2024, for discomfort with PIV insertion, Routine nicotine polacrilex (Nicorette) gum 2 mg 2 mg, Buccal, EVERY 4 HOURS PRN, Starting on 08/12/22 at 1833, Until Sat08/14/22 at 2024, Smoking cessation, Chew gum slowly. Do not swallow. Maximum of 48 mg/day., Routine 184 (Given - Provider: Belkis Carver RN) ondansetron (pf) (Zofran) (2 mg/mL) injection 4-8 mg(Linked Group 3) 4-8 mg, Intravenous, EVERY 8 HOURS PRN, Starting on 08/11/22 at 2040, Until Sat08/14/22 at 2024, Nausea, Start with 4mg and if ineffective in 30 minutes, give an additional 4mg If multiple antiemetics are ordered, give ondansetron first. 0025 (Given - Provider: Gabby Black, RICKEY) ondansetron (Zofran) tablet 4-8 mg(Linked Group 3) 4-8 mg, Oral, EVERY 8 HOURS PRN, Starting on 08/11/22 at 2040, Until Sat08/14/22 at 2024, Nausea, Vomiting, If multiple antiemetics are ordered, use ondansetron first. PO Preferred. If patient unable to take PO, may give IV if ordered. Start with 4mg and if ineffective in 45 minutes, give an additional 4mg. If unable to take PO, may give IV., Routine 0025 (See Alternative - Provider: Gabby Black RN) prochlorperazine (Compazine) (5 mg/mL) injection 10 mg(Linked Group 4) 10 mg, Intravenous, EVERY 6 HOURS PRN, Starting on 08/11/22 at 2040, Until Sat08/14/22 at 2024, Nausea, Nausea/Vomiting, If multiple antiemetics are ordered, use ondansetron first. If ondansetron ineffective use prochlorperazine. Only give IV if unable to take PO, Routine prochlorperazine (Compazine) tablet 10 mg(Linked Group 4) 10 mg, Oral, EVERY 6 HOURS PRN, Starting on 08/11/22 at 2040, Until Sat08/14/22 at 2024, Nausea, Nausea/Vomiting, If multiple antiemetics are ordered, use ondansetron first. If ondansetron ineffective use prochlorperazine. PO Preferred. If patient unable to take PO, may give IV if ordered., Routine sodium chloride 0.9 % (flush) (BD PosiFlush Normal Saline 0.9) flush 5-20 mL 5-20 mL, Intravenous, EVERY 1 MIN PRN, Starting on 08/11/22 at 2040, Until Sat08/14/22 at 2024, flush, Flush pertains to all indwelling lines. Flush per protocol found in the job aid using the link provided on this medication record., Routine Linked Groups Order Group 1: nicotine (Nicoderm CQ) 21 mg/24 hr patch 21 mgJump to med 21 mg (1 patch), Transdermal, Administer over 24 Hours, DAILY, First dose on 08/11/22 at 2354, Until Discontinued, Apply new patch to clean, dry, hair-free skin on the upper body or upper outer arm; each patch should be applied to a different site. , Routine And nicotine (Nicoderm CQ) 21 mg/24 hr patch Patch VerificationJump to med Transdermal, 2 TIMES DAILY, First dose on Sat08/12/22 at 1153, Until Discontinued, Verify nicotine 21 mg/24 hr patch Group 2: HYDROmorphone (Dilaudid) tablet 2 mgJump to med 2 mg, Oral, EVERY 4 HOURS PRN, Starting on 08/12/22 at 1326, Until Sat08/14/22 at 2024, Pain, for mild pain (1-3), May give an additional 2 mg once if pain not relieved in 30-60 minutes., Routine Or HYDROmorphone (Dilaudid) tablet 4 mgJump to med 4 mg, Oral, EVERY 4 HOURS PRN, Starting on 08/12/22 at 1326, Until Sat08/14/22 at 2024, Pain, for moderate pain (4-6), May give an additional 2 mg once if pain not relieved in 30-60 minutes., Routine Or HYDROmorphone (Dilaudid) tablet 6 mgJump to med 6 mg, Oral, EVERY 4 HOURS PRN, Starting on 08/12/22 at 1326, Until Sat08/14/22 at 2024, Pain, for severe pain (7-10), May give an additional 2 mg once if pain not relieved in 30-60 minutes., Routine Group 3: ondansetron (Zofran) tablet 4-8 mgJump to med 4-8 mg, Oral, EVERY 8 HOURS PRN, Starting on 08/11/22 at 2040, Until Sat08/14/22 at 2024, Nausea, Vomiting, If multiple antiemetics are ordered, use ondansetron first. PO Preferred. If patient unable to take PO, may give IV if ordered. Start with 4mg and if ineffective in 45 minutes, give an additional 4mg. If unable to take PO, may give IV., Routine Or ondansetron (pf) (Zofran) (2 mg/mL) injection 4-8 mgJump to med 4-8 mg, Intravenous, EVERY 8 HOURS PRN, Starting on 08/11/22 at 2040, Until Sat08/14/22 at 2024, Nausea, Start with 4mg and if ineffective in 30 minutes, give an additional 4mg If multiple antiemetics are ordered, give ondansetron first. Group 4: prochlorperazine (Compazine) tablet 10 mgJump to med 10 mg, Oral, EVERY 6 HOURS PRN, Starting on 08/11/22 at 2039, Until Sat08/14/22 at 2024, Nausea, Nausea/Vomiting, If multiple antiemetics are ordered, use ondansetron first. If ondansetron ineffective use prochlorperazine. PO Preferred. If patient unable to take PO, may give IV if ordered., Routine Or prochlorperazine (Compazine) (5 mg/mL) injection 10 mgJump to med 10 mg, Intravenous, EVERY 6 HOURS PRN, Starting on 08/11/22 at 2039, Until Sat08/14/22 at 2024, Nausea, Nausea/Vomiting, If multiple antiemetics are ordered, use ondansetron first. If ondansetron ineffective use prochlorperazine. Only give IV if unable to take PO, Routine documented in this encounter Care Teams Claim Review Medical Director Relationship Specialty Start Date End Date None None PCP - General 08/11/22 documented as of this encounter
--- OUTSIDE RECORDS SUMMARY | 2024-05-26 12:50 | XMS_ITS | Encounter Summary ---
[place] [address] Care Team Providers Care Roofer Assistant Name Role Phone None Primary Care Provider Unavailabl e Encounter Details Date Type Department Care Team (Latest Contact Info) Description 08/11/2022 Travel Social History Tobacco Use Types Packs/Day Years Used Date Smoking Tobacco: Never Assessed Sex and Gender Information Value Date Recorded Sex Assigned at Not on file Gender Identity Not on file Sexual Orientation Not on file documented as of this encounter Plan of Treatment Not on file documented as of this encounter Visit Diagnoses Not on filedocumented in this encounter Care Teams Roofer Assistant Relationship Specialty Start Date End Date None None PCP - General 08/11/22 documented as of this encounter
--- OUTSIDE RECORDS SUMMARY | 2024-05-26 12:50 | XMS_ITS | Encounter Summary ---
Author Organization [facility] Address [address] [place] [address] Care Team Providers Care Physical Education Aide Name Role Phone Estuardo Graham MD Primary Care Provider [phone] Encounter Details Date Type Department Care Team (Late st Contact Info) Description 02/02/2023 Lab Requisition [facility] Pathology & Laboratory Medicine - [facility] [address] [place] [address] Outr Resulting Lab, Provider Social History Tobacco Use Types Packs/Day Years Used Date Smoking Tobacco: Never Assessed Interpersonal Safety Answer Date Record ed Physically Hurt Never 03/06/2020 Verbally Threaten Not on file 03/06/2020 Sex and Gender Information Value Date Recorded Sex Assigned at Not on file Gender Identity Not on file Sexual Orientation Not on file documented as of this encounter Plan of Treatment Not on file documented as of this encounter Procedures Procedure Name Priority Date/Time Associated Diagnosis Comments LYME AB Routine 02/01/2023 9:30 EDT documented in this encounter Results * LYME AB (02/01/2023 9:30 EDT) Lyme Ab Negative Negative 02/04/2023 11:20 EDT [facility] Blood VENOUS BLOOD / Unknown 02/01/2023 9:30 EDT 02/02/2023 21:26 EDT Provider Outr Resulting Lab IMMUNOLOGY A ND SEROLOGY ORDERABLES [facility] [address] [place] [address] documented in this encounter Visit Diagnoses Not on filedocumented in this encounter Care Teams Physical Education Aide Relationship Specialty Start Date End Date Estuardo Graham MD [address] [facility] [place] [address] PCP - General 02/04/18 documented as of this encounter
--- OUTSIDE RECORDS SUMMARY | 2024-05-26 12:50 | XMS_ITS | Referral Summary ---
Author Organization [facility] Address [address] [place] [address] Care Team Providers Care Sheeting Puller Name Role Phone Estuardo Graham MD Primary Care Provider [phone] Social History Tobacco Use Types Packs/Day Years Used Date Smoking Tobacco: Never Assessed Interpersonal Safety Answer Date Record ed Physically Hurt Never 03/06/2020 Verbally Threaten Not on file 03/06/2020 Sex and Gender Information Value Date Recorded Sex Assigned at Not on file Gender Identity Not on file Sexual Orientation Not on file Plan of Treatment Not on file Care Teams Sheeting Puller Relationship Specialty Start Date End Date Estuardo Graham MD [facility] [place] [place] [address] PCP - General 02/04/18
--- OUTSIDE RECORDS SUMMARY | 2024-05-26 12:50 | XMS_ITS | Clinical Summary ---
Author Organization [facility] Address [address] [place] [address] Care Team Providers Care Unclaimed Property Manager Name Role Phone Estuardo Graham MD Primary Care Provider [phone] Social History Tobacco Use Types Packs/Day Years Used Date Smoking Tobacco: Never Assessed Interpersonal Safety Answer Date Record ed Physically Hurt Never 03/06/2020 Verbally Threaten Not on file 03/06/2020 Sex and Gender Information Value Date Recorded Sex Assigned at Not on file Gender Identity Not on file Sexual Orientation Not on file Plan of Treatment Health Maintenance Due Date Last Done Comments Hepatitis C Screen 1998 Hepatitis B Vaccine (1 of 3 - 19+ 3-dose series) 06/16 COVID-19 Vaccine ( season) 2023 Care Teams Unclaimed Property Manager Relationship Specialty Start Date End Date Estuardo Graham MD [facility] [place] [address] [place] [address] PCP - General 02/04/18
--- OUTSIDE RECORDS SUMMARY | 2024-05-26 12:50 | XMS_ITS | Encounter Summary ---
Author Organization [facility] Address [address] [place] [address] Care Team Providers Care End User Support Specialist Name Role Phone Estuardo Graham MD Primary Care Provider [phone] Encounter Details Date Type Department Care Team (Late st Contact Info) Description 05/04/2020 Lab Requisition [facility] Pathology & Laboratory Medicine - [address] [address] Outr Resulting Lab, Provider Social History Tobacco [...] Procedure Name Priority Date/Time Associated Diagnosis Comments CELIAC DISEASE PANEL Routine 05/03/2020 12:40 EDT documented in this encounter Results * CELIAC DISEASE PANEL (05/03/2020 12:40 EDT) Tissue Transglutaminase Antibody IGA <1.2 <4.0 U/mL 05/09/2020 12:48 EDT [facility] Comment: A negative result may be due to IgA deficiency and does not rule out celiac disease. ? Negative: ??<4.0 U/mL ? Weak Positive: ??4.0 - 10.0 U/mL ? Positive: ??>10.0 U/mL Results were obtained with the [employer] QUANTA Lite R h-tTG IgA CHRISTOPHER assay on the [employer] DSX. IgA 129 85 - 499 mg/dL 05/09/2020 12:48 EDT [facility] Celiac Disease Interpretation Negative Serology. Celiac disease unlikely. Approximately 10% of patients with celiac disease are seronegative. Patients who are already adhering to a gluten-free diet may also be seronegative. If celiac disease is highly clinically suspected, referral to gastroenterology for additional evaluation is recommended. 05/09/2020 12:48 EDT [facility] Blood VENOUS BLOOD / Unknown 05/03/2020 12:40 EDT 05/04/2020 16:46 EDT Provider Outr Resulting Lab IMMUNOLOGY A ND SEROLOGY ORDERABLES Performing Organization Address City/State/[facility] Co de Phone Number [facility] [address] [place] [address] documented in this encounter Visit Diagnoses Not on filedocumented in this encounter Care Teams End User Support Specialist Relationship Specialty Start Date End Date Estuardo Graham MD [place] [place] [place] [address] PCP - General 02/04/18 documented as of this encounter
--- OUTSIDE RECORDS SUMMARY | 2024-05-26 12:50 | XMS_ITS | Encounter Summary ---
Author Organization [facility] Address [address] [place] [address] Care Team Providers Care Retail District Manager Name Role Phone Unknown, Provider Primary Care Provider Encounter Details Date Type Department Care Team (Latest Contact Info) Description 01/31/2018 11:32 EDT - 01/31/2018 23:59 EDT Hospital Encounter [address] [address] Unknown, Provider, Discharge Disposition: Home or Self Care Social History Tobacco Use Types Packs/Day Years Used Date Smoking Tobacco: Never Assessed Sex and Gender Information Value Date Recorded Sex Assigned at Not on file Gender Identity Not on file Sexual Orientation Not on file documented as of this encounter Discharge Disposition Disposition Code Departure Means Destination Home or Self Long Term documented in this encounter Plan of Treatment Not on file documented as of this encounter Visit Diagnoses Not on filedocumented in this encounter Care Teams Retail District Manager Relationship Specialty Start Date End Date Unknown, Provider, PCP - General 06/16/15 02/03/18 documented as of this encounter
[2024-05-26 13:01] LABS: Abs Immature Grans 0.03 10^3/uL (0.0-0.06); Absolute Basophil Count 0.07 10^3/uL (0.0-0.2); Absolute Lymphocyte Count 2.69 10^3/uL (1.2-3.4); Absolute Monocyte Count 0.72 10^3/uL (0.1-0.8); Absolute Neutrophil Count 6.37 10^3/uL (1.2-6.7); Basophils % 0.6 %; Eosinophils % 8.3 %; HCT 43.6 % (40.0-50.0); HGB 14.7 g/dL (13.5-17.5); Immature Grans % 0.3 %; MCH 30.7 pg (27.0-33.0); MCHC 33.7 % (32.0-36.0); MCV 91 fL (80-95); MPV 8.9 fL (8.0-11.0); Monocytes % 6.7 %; Neutrophils % 59.1 %; Platelet Count 362 10^3/uL (130-400); RBC 4.79 10^6/uL (4.36-5.78); RDW 11.8 % (11.8-14.1); RDW-SD 39.2 fL; WBC 10.78 10^3/uL (4.4-10.8)
[2024-05-26 13:05] LABS: Hemoglobin A1C 5.4 % (<5.7)
[2024-05-26 13:28] LABS: ALT 29 U/L (16-63); AST 29 U/L (15-37); Alkaline Phosphatase 117 U/L (46-116); Anion Gap 9.1 mmol/L (3-11); BUN 16 mg/dL (7-18); CO2 26.9 mmol/L (21.0-32.0); Calcium 9.1 mg/dL (8.5-10.1); Calculated LDL 88 mg/dL (<100); Chloride 106 mmol/L (98-107); Cholesterol 164 mg/dL (<200); Estimated GFR 107.12 (mL/min/1.73m2); Glucose 126 mg/dL (74-106); HDL Cholesterol 63 mg/dL (40-60); Potassium 4.1 mmol/L (3.5-5.1); Sodium 142 mmol/L (136-145); Total Protein 7.5 g/dL (6.4-8.2); Triglyceride 66 mg/dL (<150)
== END 2024-05-26 12:48 | disposition home or self-care (01) ==
LOC: LBO 12:48
PROVIDERS: PCP Nurse Practitioner Family; Visit Provider Nurse Practitioner Family
DX: Z77.011 Contact with and (suspected) exposure to lead (principal); R73.09 Other abnormal glucose; D47.3 Essential (hemorrhagic) thrombocythemia; E78.2 Mixed hyperlipidemia; R74.01 Elevation of levels of liver transaminase levels
CPT/HCPCS: 36415; 80053; 80061; 83036; 83655; 85025

== ENCOUNTER 2024-09-21 01:30 | Outpatient (CLI) | payer MEDICAID, SELFPAY ==
--- NOTE | 2024-09-21 | DI.MRI_ITS ---
Exam(s) MR CERVICAL SPINE WO EXAM: MR CERVICAL SPINE WO CLINICAL HISTORY: M54.12 Radiculopathy, cervical region, 2-3 months cervical pain TECHNIQUE: Multiplanar multisequence MRI of the cervical spine was performed without intravenous con trast. COMPARISON: No exams were available for comparison FINDINGS: The examination is limited due to patient motion artifact. BONES: Vertebral body heights are maintained. Intervertebral disc spaces are normal. Alignment is nor mal. Bone marrow signal intensity is within normal limits. CERVICAL CORD: Craniovertebral junction is unremarkable. The cervical cord is normal size and signal intensity. SOFT TISSUES: Unremarkable. C2-3: No disc herniation or bulge is identified. No significant central spinal canal or neural forami nal stenosis. C3-4: No disc herniation or bulge is identified. No significant central spinal canal or neural forami nal stenosis C4-5: No disc herniation or bulge is identified. No significant central spinal canal or neural forami nal stenosis C5-6: No disc herniation or bulge is identified. No significant central spinal canal or neural forami nal stenosis C6-7: There is a moderately large disc herniation at this level. There is a component which is extru ded posterior to the C7 vertebral body on the right. There does appear to be compression of the righ t C7 nerve root. There is no significant right neural foraminal stenosis. There is also component w hich extends into the left neural foramen causing moderately severe left neural foraminal stenosis. There is also effacement of the anterior space with mild compression of the anterior aspect of the sp inal cord. There is normal signal within the spinal cord. C7-T1: No disc herniation or bulge is identified. No significant central spinal canal or neural corrie inal stenosis IMPRESSION: Moderately large disc herniation at C6-C7 which extends into the left neural foramen causing moderate ly severe left neural foraminal stenosis. There is also component which is extruded posterior to the C7 vertebral body on the right in appears to compress the right C7 nerve root. There is also mild c entral spinal canal narrowing but normal signal is seen in the spinal cord. DATA REPOSITORY:
== END 2024-09-21 01:50 ==
LOC: DI 01:31
PROVIDERS: PCP Nurse Practitioner Family; Visit Provider Nurse Practitioner Family
DX: M50.223 Other cervical disc displacement at C6-C7 level (principal); M99.31 Osseous stenosis of neural canal of cervical region
CPT/HCPCS: 72141

== ENCOUNTER 2024-10-27 08:46 | Outpatient (CLI) | payer MEDICAID, SELFPAY ==
--- NOTE | 2024-10-27 06:00 | DI.RAD_ITS ---
Exam(s) XR PAIN CLINIC CERVICAL SP 2V EXAM: XR PAIN CLINIC CERVICAL SP 2V CLINICAL HISTORY: Dx: Cervical Radiculopathy TECHNIQUE: 2D and realtime digital imaging was performed. Radiologist not present. CONTRAST MATERIAL: None. COMPARISON: No exams were available for comparison FINDINGS: Fluoroscopy was provided for pain management therapy. Cervical epidural steroid injection Please refer to procedure report or details. Radiation Exposure Index: Ka,r=2.04 mGy IMPRESSION: As above. RADIATION DOSE DELIVERED:
[2024-10-27 08:53] VITALS: BP 119/73; PULSE 77; RESP 18; TEMP 36.5; O2SAT 100
--- NOTE | 2024-10-27 09:10 | PDOC.PAIN_ITS ---
Date of service: 10/27/24 Time of Service: 09:28 Pain Managment Procedure Note Procedure Note Procedure Note: CERVICAL EPIDURAL STEROID INJECTION ? Pre-procedure Diagnosis: M54.12- Radiculopathy, cervical region ? Post-procedure Diagnosis:? The same as above ? Sedation:? ? none ? Medication: Depo-Medrol 80 mg, Omnipaque 1 mL ? Estimated blood loss:? less than 2 cc ? Surgeon:? Kwadwo Cerna MD Comment: Patient has large disc herniation at C6-7 to the left into the foramen. ? Procedure Detail:? The procedure and potential risks were explained to the patient and informed written consent was obtained. The patient was escorted to the procedure room and placed in the prone position. Pillows were utilized for proper positioning and comfort. Time out was performed in the procedure room with nursing staff confirming the patient's identity, procedure to be performed, allergies, and any blood thinning or anti-platelet medications.? The patient's neck and upper back was prepped with ChloraPrep and draped in a sterile fashion. Sterile technique was maintained throughout the procedure.? Sterile gloves were used, a face mask was worn, and new single dose vials of all medications were us ed with the top being swabbed with alcohol and given time to dry prior to withdrawal of medication. Lidocaine 1% was used to anesthetize the skin. Using a 25-gauge 1.5 inch needle, 1% lidocaine was instilled into the superficial soft tissue overlying the targeted area to provide local anesthesia. With fluoroscopic guidance, a 17 -gauge Tuohy needle was advanced toward the interlaminar space of C7-T1. The needle was then advance through the ligamentum flavum and into the posterior epidural space using the loss of resistance technique. Correct needle placement was confirmed through review of the AP and contralateral oblique fluoroscopic views. A 19-gauge Arrow catheter was threaded cephalad to the Left C6 Following negative aspiration, one cc of Omnipaque 240 contrast was injected which confirmed good flow throughout the epidural space and no evidence of vascular flow or flow into adjacent compartments. Next, following negative aspiration, 1 cc's of normal saline and 60mg of Depo-Medrol was injected. The needle and catheter were gently removed intact. The patient tolerated the procedure well and was transported to the recovery area for observation and discharge instructions. Permanent images saved and recorded. Plan:? Follow up PRN. PAIN PRE PROCEDURE 03/14 POST PROCEDURE 12/12 COMMENT: Patient will follow-up as needed and repeat otherwise will follow-up with Dr. Cordoba for surgical decompression. Coding Conscious Sedation used for procedure: No CPT Codes: Inj Spine C/T w/Imaging - [id number] ([id number] ~G) Additional Codes: Date of Service (23258) Date of service: 10/27/24
[2024-10-27 09:12] VITALS: PULSE 88; O2SAT 100
[2024-10-27 09:20] VITALS: PULSE 94; O2SAT 99
[2024-10-27] MEDS: methylPREDNISolone ACETATE 40 MG/ML VIAL IJ (09:29)
[2024-10-27] MEDS: Epidural Tray 1 EACH MC (09:29)
[2024-10-27] MEDS: Omnipaque 240 MG/ML 50 ML BTL IJ (09:29)
== END 2024-10-27 08:47 | disposition home or self-care (01) ==
PROVIDERS: PCP Nurse Practitioner Family; Visit Provider Anesthesiology Pain Medicine
DX: M54.12 Radiculopathy, cervical region (principal)
CPT/HCPCS: 62321; 72040; J1010; Q9967

== ENCOUNTER 2025-04-08 10:29 | Outpatient (CLI) | payer MEDICAID, SELFPAY ==
--- NOTE | 2025-04-08 06:00 | DI.RAD_ITS ---
Exam(s) XR PAIN CLINIC CERVICAL SP 2V EXAM: XR PAIN CLINIC CERVICAL SP 2V CLINICAL HISTORY: DX: Cervical Radiculopathy. TECHNIQUE: Fluoroscopy was provided for the referring physician for guidance with performing pain clinic injection procedure. COMPARISON: No exams were available for comparison FINDINGS: Please see procedure note for details. Fluoro time: 52.5 seconds RADIATION DOSE DELIVERED: Ka,r=4.4 mGy
[2025-04-08 10:41] VITALS: BP 129/86; PULSE 71; RESP 17; TEMP 37.2; O2SAT 99
[2025-04-08 11:12] VITALS: PULSE 87; O2SAT 99
[2025-04-08 11:13] VITALS: BP 139/71; PULSE 88; PULSE 89; RESP 16; O2SAT 98
[2025-04-08 11:15] VITALS: BP 140/77; PULSE 86; PULSE 87; RESP 17; O2SAT 98
[2025-04-08 11:20] VITALS: PULSE 86; RESP 12
[2025-04-08 11:29] VITALS: BP 126/82; PULSE 98
--- NOTE | 2025-04-08 11:29 | PDOC.PAIN_ITS ---
Date of service: 04/08/25 Time of Service: 11:29 Pain Managment Procedure Note Procedure Note Procedure Note: Procedure Note Cervical Interlaminar Epidural Steroid Injection Date of Service: April 08, 2025 Patient:Matthew Houston? Provider:? Kaye Guallpa DO, MPH Matthew has been [facility] for cervical epidural steroid injection.? Pre-operative diagnosis: Cervical Radiculopathy ICD-10 M54.12 Post-operative diagnosis: Same Pre-procedure pain: VAS= 7/10 Comments: He last had this procedure on 10/27/24 with >50% pain relief for >4 months. His neck and arm pain has slowly returned. Matthew was interviewed and the medical record was reviewed.? There were no medi catrachita, pharmacologic, radiographic or other structural contraindications to attempting fluoroscopically guided cervical interlaminar epidural steroid injection.? Risks, potential side effects, indications, and potential benefits of the procedure were reviewed with Matthew.? Questions and concerns were addressed.? After it was clear that the patient was fully informed about the procedure, the printed consent form was signed by the patient and myself.? Matthew was placed in the prone position on the fluoroscopy table and automated blood pressure cuff as well as pulse oximeter was applied. A standard time-out procedure was performed. The skin entry point for entering the epidural space by a midline C7-T1 interlaminar approach was identified under fluoroscopy and marked.? The skin entry point was thoroughly cleaned with Chlorhexadine preparation and the skin was draped.? Next a mixture of 2 mls of 1% lidocaine was infiltrated into the area of the planned skin entry point and underlying subcutaneous tissues.? Next an 18 gauge Tuohy needle was placed under fluoroscopic guidance and with loss of resistance technique into the epidural space utilizing multiple AP and 55 degree contralateral fluoroscopic views.? Upon correct needle placement and loss of resistance, there were no paresthesia or return of blood or CSF through the needle. Next 1 mls of preservative-free Omnipaque 240 was injected with clear epidural spread in the A/P and oblique views. Next, a solution of 15 mg of preservative-free Dexamethasone was injected. This was followed with 1ml of preservative-free normal saline. No u nusual discomfort was expressed by Matthew. The needle was withdrawn without difficulty. (49 mls of Omnipaque and 5 mg of Dexamethasone was wasted) Matthew was observed and was without hemodynamic, neurologic, or allergic reactions.? Fluoroscopic images were digitally archived. Matthew's vital signs were stable throughout the procedure and were as recorded in the doc flowsheet by the nursing staff.? If given, dosages of intravenous drugs for anxiolysis and analgesia were documented in MAR. Follow up plans and appointments were discussed with Matthew.? Post procedure instruction was given as documented in nursing documentation and having met discharge criteria, Matthew [facility]. A retrospective review of interlaminar cervical ESIs found that approximately two-thirds of patients with symptomatic cervical radiculopathy from disc herniation were able to avoid surgery for up to 1 year with treatment. Success rate was improved with earlier injection (< 100 days from diagnosis). Jayla EL, Kimberly V, Dharmesh L, Shantel AN, Tim COLLADO. Cervical epidural steroid injections for symptomatic disc herniations. J Spinal Disord Tech. 2006 December;19(3):183-6. ? COMMENTS: No apparent complications. Post-procedure pain: VAS= 0/10. Matthew to contact [facility] as needed. If at least 50% improvement in pain and/or function for at least 3 months is achieved, this procedure can be repeated. I personally completed the entire procedure. KAYE GUALLPA DO, MPH ABPMR-subspecialty board certification in Pain Medicine [facility] Coding Conscious Sedation used for procedure: No CPT Codes: Inj Spine C/T w/Imaging - [id number] ([id number] ~G) Additional Codes: Date of Service (27033) Date of service: 04/08/25 Diagnoses: Cervical radiculopathy
[2025-04-08] MEDS: Dexamethasone Sod. Phos./Pres-Free 10 MG/ML VIAL IJ (11:36)
[2025-04-08] MEDS: Epidural Tray 1 EACH MC (11:36)
[2025-04-08] MEDS: Omnipaque 240 MG/ML 50 ML BTL IJ (11:36)
== END 2025-04-08 10:30 | disposition home or self-care (01) ==
LOC: PC 10:29
PROVIDERS: PCP Nurse Practitioner Family; Visit Provider Preventive Medicine Occupational Medicine
DX: M54.12 Radiculopathy, cervical region (principal)
CPT/HCPCS: 62321; 72040; J1100; Q9967

== ENCOUNTER → 2025-08-04 07:04 | Outpatient (CLI) | payer MEDICAID, SELFPAY ==
--- NOTE | 2025-08-04 07:10 | DI.US_ITS ---
Exam(s) US HERNIA EXAM: US HERNIA CLINICAL HISTORY: R10.32 LLQ pain,left inguinal US w and wo valsalva to r/o herina. TECHNIQUE: Ultrasound was performed using standard protocol. COMPARISON: CT CT ABDOMEN PELVIS W from 08/31/2022 FINDINGS: Sonographic assessment utilizing grayscale and color Doppler imaging was performed and targeted to the area of clinical concern in the left groin region.. There is a small fat containing left inguinal hernia measuring roughly 2.0 X 1.5 by 1.2 cm. The neck is measured at 5 millimeters. Findings appear unchanged when compared with prior CT. IMPRESSION: Fat containing left inguinal hernia DATA REPOSITORY:
== END ==
LOC: DI 07:04
PROVIDERS: PCP Nurse Practitioner Family; Visit Provider Nurse Practitioner Family
DX: R10.32 Left lower quadrant pain (principal); K40.90 Unilateral inguinal hernia, without obstruction or gangrene, not specified as recurrent
CPT/HCPCS: 76857